=== PATIENT | male | born 1985 | race African-American/Black ===

== ENCOUNTER 2016-07-08 10:28 | Inpatient (IN) | payer OTHER ==
[~2016-07-08] VITALS: Ht 182.9 cm; Wt 96.6 kg
--- NOTE | ~2016-07-08 | HC ---
[facility] [place] [address] CONSULTATION Name: MON[address] L[address] Room #: 448-P ADM IN M.R.#: [id number] Admission: 07/08/16 Attend Phys: Martinez Isaac MD Discharge: Date of : 83 Report #: [id number] THIS REPORT FOR: //name// CC: [facility] DATE OF ADMISSION: 07/08/2016 DATE OF CONSULTATION: 07/08/2016 REASON FOR CONSULTATION: Elevated creatinine. HISTORY OF PRESENT ILLNESS: This is a 31-year-old male who already has suffered the ravages of 14 years of type 2 diabetes mellitus. With that he has episodes of gastroparesis, nausea and vomiting and he awakened this morning with one of these episodes of nausea and vomiting. It persisted for some time. He had increasing rounds of abdominal pain, so he eventually came to the Emergency Room. After evaluation in the Emergency Room, he was admitted to the hospital. He is still having abdominal discomfort at this time. He still has nausea. He has not vomited since he arrived. He has been given some Zofran. He has also been given some metoclopramide. With his abdominal pain, he had fairly normal liver function tests. He had a lipase of 385. He had a CT scan done that showed some edema of the pancreas. No evidence of stones. We were asked to see the patient for his elevated creatinine level. Again, he states he has had diabetes since age 17, creatinine level on presentation was 2.8 with a BUN of 21. Looking back at labs from 2015, he had a creatinine level of 1.5 and 1.6 at that time. 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 He has been followed for his diabetes at [facility] and has been told he has some proteinuria. He says he has been developing substantial amounts of edema mostly in his lower extremities. He has been taking some furosemide for that. He previously was on some lisinopril, but says that was stopped and does not know the reason why. His blood pressure tends to run high most all of the time. In looking at additional lab work, he has a total protein of 5.7 and an albumin of 2.0. Urinalysis showed 3+ protein, 2+ glucose, 3+ blood. Urine protein creatinine was ordered, but is pending. The patient had a CT scan of the abdomen, shows fairly normal appearing kidneys, that report shows evidence that there was some interstitial fluid present. The patient also has severe blood pressure elevation. Upon original presentation his blood pressure was 219/120, he was given some blood pressure meds, most recently was down to 192/96. PAST MEDICAL HISTORY: Type 2 diabetes mellitus diagnosed at age . He has retinopathy with previous laser photocoagulation. He has the gastroparesis. He has mild peripheral neuropathy. He has the edema as noted above. He has longstanding hypertension. He denies any history of previous surgeries, he has [address] [address] CONSULTATION Name: MONET LANE Sarthak Room #: 448-P [facility] IN M.R.#: [id number] Admission: 07/08/16 Attend Phys: Martinez Isaac MD Discharge: Date of : 83 Report #: [id number] also had cataracts treated, other records available shows that he has been in the Emergency Room a couple of times in 2015 with very similar symptoms, nausea, vomiting and abdominal pain. MEDICATIONS: On admission include carvedilol 12.5 mg b.i.d., Lantus 17 units at bedtime, Apidra with meals. He has been taking furosemide 80 mg in the morning and 40 in the evening, p.r.n. Aleve. ALLERGIES: No known allergies. FAMILY HISTORY: Negative for renal disease of which he is aware. SOCIAL HISTORY: The patient is , lives in [place], [place]. He is currently unemployed. REVIEW OF SYSTEMS: Positive for the nausea and vomiting as noted above. He states yesterday he felt his entirely normal self. He does not recall eating anything unusual, was not having nausea or vomiting at that time. No recent problem with his bowels. No difficulty voiding urine. He says he has had edema as noted previously, this includes lower extremities, occasionally in the hands and face, somewhat it is so severe in his legs and thighs and involves his scrotum and his lower abdomen. He reports no difficulty voiding urine. Urine has been somewhat dark, no dysuria, mild dyspnea with exertion. No chest pain or palpitations, unaware of fevers, chills or sweats. No skin rashes, myalgias, arthralgias recently. PHYSICAL EXAMINATION: GENERAL: A 31-year-old male, acutely ill appearing. VITAL SIGNS: Most recent blood pressure 192/96, heart rate is 89, temperature 98.4, oxygen saturation 98%. HEENT: Shows pupils are equal and reactive. Sclerae nonicteric. Oral mucosa is somewhat dry without lesions. NECK: Supple without adenopathy, thyromegaly, JVD or bruit. CHEST: Show shallow respirations, generally clear. CARDIOVASCULAR: Heart has a regular rate and rhythm, not tachycardic. No gallop is noted. ABDOMEN: Fairly quiet, it is not distended. There is mild diffuse tenderness, but no point tenderness in particular and no epigastric tenderness. BACK: Shows no CVA tenderness. EXTREMITIES: Showed 1+ bilateral angle and pedal edema. No edema above that at this time. There is mild hand edema. Elective CT scan confirmed a fairly normal appearing kidneys. LABORATORY DATA: Sodium 134, potassium 3.8, chloride 103, bicarbonate 26, BUN 21, creatinine 2.8, glucose 254, AST 35, ALT 25, total bilirubin 0.4, calcium [address] [address] CONSULTATION Name: [address] Room #: 448-P [facility] IN ..#: [id number] Admission: 07/08/16 Attend Phys: Martinez Isaac MD Discharge: Date of : 83 Report #: [id number] 7.9, lipase 385, total protein 5.7, albumin 2.0, hemoglobin 11.5, hematocrit 32.1, white count 6.8, platelets 248,000. Urinalysis is as noted above. ASSESSMENT: 1. Nausea, vomiting and abdominal pain, most consistent with diabetic gastroparesis on exam and on labs. He does not have acute pancreatitis. I know that the CT scan suggested enlarged diffuse pancreas. He is nephrotic enough most likely that he has some ascites and other swelling related to that and that may be somewhat of a CT appearance. Certainly those labs will be repeated overnight to see if he has further evidence of that, but he has had recurring episodes of gastroparesis before and I think that is what it is. He has been treated with prokinetic agents and ondansetron and should improve. 2. Elevated creatinine consistent with chronic kidney disease, likely stage 3, possibly stage IV. He has proteinuria and a very active urine on dipstick. We need to quantify proteinuria. 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 This would be expected with uncontrolled diabetic nephropathy. Unfortunately, he had been taking off his KEVON inhibitor that he had been on previously. He does not know why, nor does he remember when, he would be best served still being on that for renal protection. Kidneys were of normal size on CT exam. No evidence of hydronephrosis. He will need very aggressive care to try to get his diabetic nephropathy, controlled. 3. Hypertension, very poorly controlled. I will double his carvedilol, I will double his amlodipine once we get things stabilized a bit and see what his creatinine is doing. I want to get him on an KEVON inhibitor. We certainly do not want to exacerbate any acute kidney injury, if that is occurring with high dose KEVON inhibitor at this time, we will wait and see what he does over the next few days before getting that started. I have also discussed with the patient that he needs long-term nephrologic care, whether he get that at [facility] or elsewhere, he needs a lot of help because of his progressive chronic kidney disease. He seemed to express understanding. PLAN: 1. Double carvedilol to 25 b.i.d. 2. Double amlodipine 10 mg b.i.d. 3. Continue the IV fluids at 100 mL an hour. 4. Quantify proteinuria. 5. Fractional excretion of sodium. 6. Repeat labs in the morning. 7. Eventually answer to some lisinopril or other KEVON inhibitor to help for renal protection. 8. We will have to work with the patient about additional education concerning his very tenuous status from a kidney standpoint. <ELECTRONICALLY SIGNED> By: Randy Maldonado MD 07/09/16 0735 [id number] Kanu Torrez MD /nt
--- NOTE | ~2016-07-08 | H ---
[facility] [place] [address] HISTORY AND PHYSICAL Name: MONET LANE Room #: 448-P ADM IN M.R.#: [id number] Admission: 07/08/16 Attend Phys: Martinez Isaac MD Discharge: Date of : 83 Report #: [id number] THIS REPORT FOR: //name// CC: Martinez Londonian [facility] DATE OF SERVICE: 07/08/2016 REASON FOR ADMISSION: Abdominal pain and nausea. HISTORY OF PRESENT ILLNESS: The patient is a 31-year-old gentleman who reportedly was in his usual state of health yesterday, subsequently presented to the hospital today with significant severe abdominal pain located all over his lower abdomen, associated with significant nausea and vomiting. He also reports a few loose stools. He denies fevers, chills, headaches, skin rashes, or other problems. In the emergency room, he was noted to be significantly hypertensive as well as appeared to be in renal failure with possible pancreatitis and is being admitted for further workup and management of these problems. He denies any new medications. He reports compliance with his regular medications. He denies alcohol or drug use or any other substance use at this present time. PAST MEDICAL HISTORY: Includes: 1. Diabetes, on insulin. 2. Hypertension. PAST SURGICAL HISTORY: None reported. FAMILY HISTORY: Reports no significant family history. ALLERGIES: Reported to SHRIMP. MEDICATIONS AT HOME: Include: 1. Coreg. 2. Apidra with meals and 17 of Lantus at bedtime. REVIEW OF SYSTEMS: Twelve-point review of systems performed, negative except as mentioned in history of present illness. PHYSICAL EXAMINATION: VITAL SIGNS: Afebrile, pulse 90, respiratory rate 16, O2 sat 100 on room air, and blood pressure 207/107. GENERAL: Awake, alert, somewhat uncomfortable, in no acute distress. HEENT: Unremarkable. NECK: No JVD or thyromegaly. CARDIOVASCULAR: S1, S2 present, regular. RESPIRATORY: Air entry present bilaterally. [facility] [address] [place] [place] [address] HISTORY AND PHYSICAL Name: MONET LANE Room #: 448-P [facility] IN M.R.#: [id number] Admission: 07/08/16 Attend Phys: Martinez Isaac MD Discharge: Date of : 83 Report #: [id number] ABDOMEN: Soft, mildly tender to palpation all over without obvious guarding, rebound, or rigidity. EXTREMITIES: Without edema. NEUROLOGIC: Awake, alert. No obvious focal findings. SKIN: Unremarkable for rash or lesions. LABS AND INVESTIGATIONS: CBC is unremarkable. Chemistry notable for mild hyponatremia 134, BUN and creatinine elevated at 21 and 2.8, glucose elevated at 234. Liver function within normal range. Alk phos minimally elevated. Lipase level within normal range. Urinalysis with 3+ protein, 3+ blood, and rbc's noted. Imaging with an abdominal and pelvis CT noncontrast demonstrates pancreatic edema as well as proximal transverse colon thickening as well as moderate thickening of the anterior superior bladder wall. ASSESSMENT AND PLAN: This is a 31-year-old gentleman admitted with abdominal pain, nausea, vomiting and reported diarrhea. 1. Abdominal pain, nausea, and vomiting. CT does appear to show some evidence of pancreatitis, though his lipase is unremarkable. We will check a lipid profile. This may be related to his history of diabetes and related to the insulin he is on versus in the setting of acute gastroenteritis. We will start empiric antibiotic coverage for the same and assess for improvement. He will be kept n.p.o. for the present. 2. Acute renal failure. The patient likely has underlying chronic kidney disease in light of poorly treated diabetes and hypertension. At the present time, we will obtain a renal ultrasound as well as obtain nephrology input as this may represent advanced chronic kidney disease, which requires followup. We will also try to quantify his proteinuria. 3. Diabetes. Continue long-acting Lantus and start sliding scale coverage. 4. Hypertension/hypertensive urgency, very poorly controlled at this present time. We will add a calcium channel luis felipe and attempt to control his pain and symptoms, which may be contributory as well as use p.r.n. hydralazine as needed. 5. Deep venous thrombosis prophylaxis with SCDs. <ELECTRONICALLY SIGNED> By: Martinez Isaac MD 07/09/16 1505 1405 1647 Martinez Isaac MD /nt
[~2016-07-08 10:28] MED LIST: APIDRA SUBQ; LANTUSSOLASTAR SUBQ; LISINOPRIL-HCT1 EAC1 PO; NEURONTIN 300M300 M2 PO; NEXIUM 40 MG CA40 M1 PO; NORCO 5-325 TA1 EACH PO; ZOFRAN ODT4 MG PO; ZOFRAN4 MG PO; [UNRECOGNIZED DRUG - OTHER]
[2016-07-08 10:35] VITALS: BP 219/120
[2016-07-08] MEDS ORDERED: CARVEDILOL12.5 MG PO (10:48)
[2016-07-08 11:18] LABS: ABSOLUTE NEUTROPHILS 4.8 thou/uL (1.4-8.2); BASOPHILS 0.8 % (0.0-2.0); EOSINOPHILS 1.6 % (0.0-3.0); HEMATOCRIT 32.1 % (42.0-52.0); HEMOGLOBIN 11.5 gm/dL (14.0-18.0); LYMPHOCYTES 20.3 % (24.0-44.0); MCH 29.4 pg (26.0-34.0); MCHC 35.8 g/dL (28.0-37.0); MCV 82.2 fL (80.0-100.0); MONOCYTES 6.2 % (1.0-8.0); PLATELET COUNT 248 thou/uL (150-400); POLYS 71.1 % (36.0-66.0); RDW 14.7 % (10.5-14.5); WBC 6.8 thou/uL (4.0-11.0)
[2016-07-08 11:20] LABS: URINE BILIRUBIN NEGATIVE (Negative); URINE BLOOD 3+ (Negative); URINE COLOR YELLOW; URINE GLUCOSE-RANDOM* 2+ (Negative); URINE KETONES NEGATIVE (Negative); URINE LEUKOCYTES-REFLEX NEGATIVE (Negative); URINE PROTEIN (DIPSTICK) 3+ (Negative); URINE UROBILINOGEN 0.2 E.U./dl (0.2-1.0)
[2016-07-08 11:20] LABS: MANUAL DIFF NO
[2016-07-08 11:26] LABS: CALCIUM 7.9 mg/dL (8.5-10.1); CREATININE 2.8 mg/dL (0.7-1.3); POTASSIUM 3.8 mmol/L (3.5-5.1)
[2016-07-08 11:31] LABS: TOTAL BILIRUBIN 0.4 mg/dL (<0.1-1.0); TOTAL PROTEIN 5.7 g/dL (6.4-8.2)
[2016-07-08 11:39] LABS: CASTS None Seen /LPF (None Seen); CRYSTALS None Seen /LPF (None Seen); SQUAMOUS None Seen /LPF (0-3)
[2016-07-08 11:40] LABS: URINE RBC >20 Many /HPF (0-2); URINE WBC-REFLEX 0-5 Rare /HPF (0-5)
[2016-07-08 14:18] LABS: CHOLESTEROL 246 mg/dL (<200); HDL CHOLESTEROL 79 mg/dL (>40); LDL CHOLESTEROL 151 mg/dL (<100); TC:HDL 3.1 Ratio (Not establshd); TRIGLYCERIDE 80 mg/dL (<150); VLDL 16 mg/dL (<40)
[2016-07-08 14:50] VITALS: BP 214/144
[2016-07-08 15:48] VITALS: BP 192/96
[2016-07-08 18:35] VITALS: BP 188/88
[2016-07-08 19:40] VITALS: BP 187/110
[2016-07-08 22:59] VITALS: BP 156/100
[2016-07-09] VITALS (7 sets, daily range): BP systolic 160–174; BP diastolic 83–109
[2016-07-09 05:26] LABS: HEMATOCRIT 29.5 % (42.0-52.0); HEMOGLOBIN 10.8 gm/dL (14.0-18.0); MCH 29.5 pg (26.0-34.0); MCHC 36.6 g/dL (28.0-37.0); MCV 80.6 fL (80.0-100.0); RBC 3.66 mil/uL (4.50-6.00); RDW 14.2 % (10.5-14.5); WBC 6.1 thou/uL (4.0-11.0)
[2016-07-09 05:41] LABS: CALCIUM 7.8 mg/dL (8.5-10.1); CREATININE 2.7 mg/dL (0.7-1.3)
[2016-07-09 05:59] LABS: POTASSIUM 2.9 mmol/L (3.5-5.1)
[2016-07-09 06:08] LABS: GLYCOHEMOGLOBIN (HGB A1C) 7.4 % (4.8-5.6)
[2016-07-09 07:10] LABS: URINE CREATININE-RANDOM* 42.1 mg/dL (Not Estab.)
[2016-07-09 08:15] LABS: URINE PROTEIN-RANDOM* 581.3 mg/dL (Not Estab.)
== END 2016-07-09 20:00 | disposition left against medical advice (07) | DRG 73 ==
LOC: ER 10:28 → 4S 13:08 → EROBS 13:08 → 4S 14:11
PROVIDERS: Hospitalist; Physician Assistant
DX: E11.43 Type 2 diabetes mellitus with diabetic autonomic (poly)neuropathy (principal); K85.90 Acute pancreatitis without necrosis or infection, unspecified; N17.9 Acute kidney failure, unspecified; K31.84 Gastroparesis; E11.21 Type 2 diabetes mellitus with diabetic nephropathy; I16.0 Hypertensive urgency; R80.9 Proteinuria, unspecified; I12.9 Hypertensive chronic kidney disease with stage 1 through stage 4 chronic kidney disease, or unspecified chronic kidney disease; E11.22 Type 2 diabetes mellitus with diabetic chronic kidney disease; N18.9 Chronic kidney disease, unspecified; Z53.21 Procedure and treatment not carried out due to patient leaving prior to being seen by health care provider; Z79.4 Long term (current) use of insulin; Z91.013 Allergy to seafood; Z79.899 Other long term (current) drug therapy; Z98.42 Cataract extraction status, left eye; Z98.41 Cataract extraction status, right eye
CPT/HCPCS: 10100

== ENCOUNTER 2016-07-13 17:42 | Inpatient (IN) | payer OTHER ==
[~2016-07-13] VITALS: Ht 188 cm; Wt 90.7 kg
--- NOTE | ~2016-07-13 | EKG ---
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 : 1985 Requested By: Cheyenne Finnegan Order Number: [id number] MD: Facundo Polanco Measurements Intervals [place] Rate: 92 P: 64 [place]: 159 QRS: 32 QRSD: 76 T: 67 QT: 352 QTc: 436 Interpretive Statements Sinus rhythm Baseline wander in lead(s) V3 Compared to ECG 01/14/2015 23:57:24 No significant change was found Electronically Signed On 07-14-2016 14:02:52 CDT by Facundo Polanco [email or web address] <ELECTRONICALLY SIGNED> By: Facundo Polanco MD, [facility] 07/14/16 1402 190 190 Facundo Polanco MD, [facility] /EPI
--- NOTE | ~2016-07-13 | HC ---
[facility] [place] [address] CONSULTATION Name: [address] Room #: 204-P [facility] IN ..#: [id number] Admission: 07/13/16 Attend Phys: Eugenio Lam MD Discharge: 07/14/16 Date of : 83 Report #: [id number] THIS REPORT FOR: //name// CC: FAM unknown Eugenio Lam DATE OF SERVICE: 07/14/2016 REASON FOR CONSULTATION: Renal insufficiency and nephrotic syndrome in this patient with nausea, vomiting, abdominal pain, longstanding diabetes mellitus. HISTORY OF PRESENT ILLNESS: The patient was recently hospitalized at [facility] from 07/08/2016 through 07/09/2016. He represents at this time with recurrent abdominal discomfort. He reports nausea and vomiting. Evaluation in the Emergency Room revealed evidence of suspected gastroparesis/pancreatitis and he was admitted for further evaluation and treatment. His renal status is not significantly changed from his recent values. His creatinine is in the upper 2 to 3.0 range with having nephrotic range proteinuria. He denies current urinary symptomatology including dysuria, frequency, burning, or incontinence. PAST MEDICAL HISTORY: Remarkable as described above for longstanding diabetes mellitus and hypertension. Evaluation during his last hospitalization did not reveal evidence of a glomerulonephritis and it was suspected that his renal difficulties are all hypertension and diabetes related. PAST MEDICAL HISTORY: Otherwise remarkable for diabetic retinopathy post photocoagulation, gastroparesis, peripheral neuropathy and hypertension. MEDICATIONS: On admission include carvedilol 12.5 mg b.i.d., Lantus and Apidra. FAMILY HISTORY: Remarkable for diabetes mellitus, but negative for renal disease. PERSONAL AND SOCIAL HISTORY: The patient reportedly does not smoke, use alcohol or have any history of substance abuse. REVIEW OF SYSTEMS: Remarkable for intermittent pedal edema. He denies headache, loss of consciousness, vertigo, shortness of breath, productive cough, hemoptysis, chest pain, palpitations. He has had nausea, vomiting and abdominal pain. He reports regular bowel movements. PHYSICAL EXAMINATION: GENERAL: Reveals a well-developed, well-nourished male appearing his stated age, in no acute distress. VITAL SIGNS: Blood pressure 146/81, temperature 98.5, pulse 93, respirations [address] [address] CONSULTATION Name: MON[address] L[address] Room #: [address] [place] [address]#: [id number] Admission: 07/13/16 Attend Phys: Eugenio Lam MD Discharge: 07/14/16 Date of : 83 Report #: [id number]. SKIN: Warm and dry. There is good distal perfusion. There is no clubbing, cyanosis or adenopathy present. HEENT: The head is normocephalic and atraumatic. The sclerae are white. The pharynx is benign. NECK: Supple. LUNGS: Way are grossly clear to percussion and auscultation. CARDIOVASCULAR: Reveals a regular rate and rhythm without rub. ABDOMEN: Soft and nontender without evidence of guarding or rebound noted. EXTREMITIES: There is no palpable mass or organomegaly. NEUROLOGIC: Reveals the patient to be alert and cooperative with a nonfocal exam. LABORATORY STUDIES: Available at this time include sodium 140, potassium 3.6, chloride 104, CO2 of 21, BUN 20, creatinine 2.9, glucose 268, calcium 8.0, ALT 23, alk phos 122, albumin 2.1, troponins less than 0.04. DICTATION ENDS HERE. <ELECTRONICALLY SIGNED> By: Randy Maldonado MD 07/15/16 0750 1826 0045 Randy Maldonado MD /nt
--- NOTE | ~2016-07-13 | EKG ---
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 07/14/16 1408 6 6 Facundo Polanco MD, [facility] /EPI
--- NOTE | ~2016-07-13 | HC ---
[facility] [place] [address] CONSULTATION Name: [address] Sarthak Room #: 204[facility]#: [id number] Admission: 07/13/16 Attend Phys: Eugenio Lam MD Discharge: 07/14/16 Date of : 83 Report #: [id number] THIS REPORT FOR: //name// CC: FAM unknown Eugenio Lam DATE OF SERVICE: 07/14/2016 REASON FOR CONSULTATION: Abdominal pain. CONSULTING PHYSICIAN: JOHN Guerra. HISTORY OF PRESENT ILLNESS: This is a 31-year-old Afro-[place] Citizen male with past medical history of diabetes, hypertension, hyperlipidemia and chronic kidney disease; who was admitted to the hospital overnight via the emergency room with complaint of nausea, vomiting, abdominal pain and chest pain. He started vomiting around 8:00 a.m. with continuous episodes. He has not had any overnight. He reports diffuse abdominal pain, mainly located in the periumbilical region with radiation to the back. There are no relieving factors except for high doses of narcotics. He states food exacerbates the pain. Of note, his CT scan shows acute pancreatitis. The patient usually follows his care at [facility]. He has insulin-dependent diabetes mellitus. Of note, he was extremely hypertensive with a blood pressure of 225/149 on admission. REVIEW OF SYSTEMS: As noted on HPI, otherwise generally appearing negative. PAST MEDICAL AND SURGICAL HISTORY: 1. Chronic kidney disease. 2. Hypertension. 3. Uncontrolled diabetes mellitus. 4. Acute pancreatitis. 5. Noncompliance. ALLERGIES: No known drug allergies. MEDICATIONS: Reviewed and noted. SOCIAL HISTORY: Denies tobacco use. He reports alcohol intake. He is not an accurate historian as he does not tell me the accurate alcoholic intake, but I assume it is significant. He does smoke marijuana on a regular basis. Of note, his urine drug screen was positive for marijuana. FAMILY HISTORY: There is no family member with colorectal cancer or other GI illnesses. [facility] [address] [place] [address] CONSULTATION Name: MON[address] L[address] Room #: 204-P [facility] IN [facility].#: [id number] Admission: 07/13/16 Attend Phys: Eugenio Lam MD Discharge: 07/14/16 Date of : 83 Report #: [id number] PHYSICAL EXAMINATION: GENERAL: Alert and oriented to time, place and person, cooperative, appears in moderate distress with pain. VITAL SIGNS: Hemodynamically stable, afebrile. HEAD: Normocephalic and atraumatic head. EYES: Pupils equal, round and reactive to light and accommodation. Extraocular movements intact. No pallor. No icterus. NECK: Supple. Midline trachea. Thyroid palpable. CARDIOVASCULAR: Regular rate and rhythm. No murmur. RESPIRATORY: Chest clear to auscultation bilaterally. ABDOMEN: Soft, nontender and nondistended. Bowel sounds present. EXTREMITIES: No cyanosis, clubbing or edema. SKIN: Warm and dry. No rashes. NEUROLOGICAL: Cranial nerves were grossly intact. No focal weakness. LABORATORY DATA: White count 5.3, hemoglobin 12.3 and platelets of 249. RADIOLOGICAL DATA: Chest x-ray is negative for any acute cardiopulmonary process. CT scan of the abdomen and pelvis shows acute pancreatitis. DIAGNOSTIC IMPRESSION AND PLAN: Acute pancreatitis. Unclear etiology. Alcohol could be playing a role in pancreatitis, but I would like to obtain an ultrasound of the abdomen to exclude cholelithiasis as a cause of his pancreatitis. A fasting lipid profile should also be obtained. Pain control per primary team. Continue n.p.o. status and I recommend aggressive IV hydration with lactated Ringer at 150 mL per hour to know the downward trend of BUN and hematocrit levels. Cautious advancement of diet is recommended. Thank you for allowing me to participate in the care of this patient. Dr. Burgess will see tomorrow. By: 0932 2325 Steven Lancaster MD /nt
[~2016-07-13 17:42] MED LIST changes: +CARVEDILOL12.5 MG PO
[2016-07-13 17:47] VITALS: BP 225/148
[2016-07-13 18:32] LABS: ABSOLUTE NEUTROPHILS 3.8 thou/uL (1.4-8.2); BASOPHILS 1.1 % (0.0-2.0); EOSINOPHILS 1.7 % (0.0-3.0); HEMOGLOBIN 12.3 gm/dL (14.0-18.0); LYMPHOCYTES 19.7 % (24.0-44.0); MANUAL DIFF NO; MCH 29.2 pg (26.0-34.0); MCHC 36.2 g/dL (28.0-37.0); MCV 80.8 fL (80.0-100.0); MONOCYTES 5.7 % (1.0-8.0); PLATELET COUNT 249 thou/uL (150-400); POLYS 71.8 % (36.0-66.0); RDW 13.7 % (10.5-14.5); WBC 5.3 thou/uL (4.0-11.0)
[2016-07-13 18:42] LABS: ANION GAP 5 mmol/L (7-16); BUN 19 mg/dL (7-18); CHLORIDE 102 mmol/L (98-107); CO2 30 mmol/L (21-32); GLUCOSE 390 mg/dL (74-106); POTASSIUM 3.6 mmol/L (3.5-5.1); SODIUM 137 mmol/L (136-145)
[2016-07-13 18:47] LABS: URINE BILIRUBIN NEGATIVE (Negative); URINE BLOOD 3+ (Negative); URINE COLOR YELLOW; URINE GLUCOSE-RANDOM* 3+ (Negative); URINE KETONES NEGATIVE (Negative); URINE NITRITE NEGATIVE (Negative); URINE PROTEIN (DIPSTICK) 3+ (Negative); URINE UROBILINOGEN 0.2 E.U./dl (0.2-1.0)
[2016-07-13 18:49] LABS: ALBUMIN 2.2 g/dL (3.4-5.0); ALKALINE PHOSPHATASE 148 U/L (46-116); SGOT 34 U/L (15-37); SGPT 26 U/L (30-65); TOTAL BILIRUBIN 0.4 mg/dL (<0.1-1.0); TOTAL PROTEIN 6.1 g/dL (6.4-8.2); TROPONIN-I < 0.04 ng/mL (<0.04-0.07)
[2016-07-13 18:51] LABS: AMP/METHAMP Negative (Negative); BARBITURATES Negative (Negative); BENZODIAZEPINES Negative (Negative); COCAINE Negative (Negative); METHADONE Negative (Negative); OPIATES Negative (Negative); PCP Negative (Negative); THC POSITIVE (Negative)
[2016-07-13 19:03] LABS: SQUAMOUS None Seen /LPF (0-3)
[2016-07-13 19:04] LABS: BACTERIA 1-9 Few /HPF (None Seen); CASTS None Seen /LPF (None Seen); CRYSTALS None Seen /LPF (None Seen); URINE WBC 0-5 Rare /HPF (0-5)
[2016-07-13 23:00] VITALS: BP 223/133
[2016-07-13 23:30] VITALS: BP 152/95
[2016-07-13 23:45] VITALS: BP 154/95
[2016-07-14] VITALS (14 sets, daily range): BP systolic 133–181; BP diastolic 77–117
[2016-07-14] MEDS ORDERED: REGLAN 10 MG TA10 MG PO (00:02)
[2016-07-14 01:41] LABS: TROPONIN-I < 0.04 ng/mL (<0.04-0.07)
[2016-07-14 02:13] LABS: NT-PRO BRAIN NAT PEPTIDE 1213 pg/mL (<300)
[2016-07-14 07:16] LABS: ALBUMIN 2.1 g/dL (3.4-5.0); ALKALINE PHOSPHATASE 122 U/L (46-116); ANION GAP 15 mmol/L (7-16); BUN 20 mg/dL (7-18); CHLORIDE 104 mmol/L (98-107); CHOLESTEROL 269 mg/dL (<200); CO2 21 mmol/L (21-32); CREATININE 2.9 mg/dL (0.7-1.3); GLUCOSE 268 mg/dL (74-106); HDL CHOLESTEROL 67 mg/dL (>40); LDL CHOLESTEROL 185 mg/dL (<100); PHOSPHORUS 4.1 mg/dL (2.5-4.9); POTASSIUM 3.6 mmol/L (3.5-5.1); SGOT 43 U/L (15-37); SGPT 23 U/L (30-65); SODIUM 140 mmol/L (136-145); TOTAL BILIRUBIN 0.6 mg/dL (<0.1-1.0); TOTAL PROTEIN 5.9 g/dL (6.4-8.2); TRIGLYCERIDE 89 mg/dL (<150); VLDL 18 mg/dL (<40)
[2016-07-14 11:57] LABS: HEMATOCRIT 31.2 % (42.0-52.0); HEMOGLOBIN 11.4 gm/dL (14.0-18.0); MCH 29.6 pg (26.0-34.0); MCHC 36.5 g/dL (28.0-37.0); RBC 3.85 mil/uL (4.50-6.00); RDW 14.2 % (10.5-14.5); WBC 7.2 thou/uL (4.0-11.0)
[2016-07-15 16:06] LABS: GLYCOHEMOGLOBIN (HGB A1C) 7.4 % (4.8-5.6)
== END 2016-07-14 13:43 | disposition left against medical advice (07) | DRG 682 ==
LOC: ER 17:42 → EROBS 22:25 → ER 22:25 → 2N 23:03
PROVIDERS: Emergency Medicine; Nurse Practitioner Family
DX: N17.9 Acute kidney failure, unspecified (principal); K85.90 Acute pancreatitis without necrosis or infection, unspecified; E87.3 Alkalosis; I16.0 Hypertensive urgency; E78.5 Hyperlipidemia, unspecified; I12.9 Hypertensive chronic kidney disease with stage 1 through stage 4 chronic kidney disease, or unspecified chronic kidney disease; F12.90 Cannabis use, unspecified, uncomplicated; N18.9 Chronic kidney disease, unspecified; R80.9 Proteinuria, unspecified; E10.65 Type 1 diabetes mellitus with hyperglycemia; E10.22 Type 1 diabetes mellitus with diabetic chronic kidney disease; E10.319 Type 1 diabetes mellitus with unspecified diabetic retinopathy without macular edema; E10.42 Type 1 diabetes mellitus with diabetic polyneuropathy; Z53.21 Procedure and treatment not carried out due to patient leaving prior to being seen by health care provider; Z79.4 Long term (current) use of insulin; Z91.013 Allergy to seafood; Z79.899 Other long term (current) drug therapy; Z83.3 Family history of diabetes mellitus; Z82.49 Family history of ischemic heart disease and other diseases of the circulatory system; Z91.14 Patient's other noncompliance with medication regimen
CPT/HCPCS: 10081

== ENCOUNTER 2016-07-20 14:11 | Emergency (ER) | payer OTHER ==
[~2016-07-20] VITALS: Ht 182.9 cm; Wt 95.3 kg
--- NOTE | ~2016-07-20 | EKG ---
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
[~2016-07-20 14:11] MED LIST changes: +REGLAN 10 MG TA10 MG PO
[2016-07-20] MEDS ORDERED: PROMS25 WY RECTAL (14:18)
[2016-07-20 16:11] LABS: ABSOLUTE NEUTROPHILS 3.5 thou/uL (1.4-8.2); BASOPHILS 0.9 % (0.0-2.0); EOSINOPHILS 1.3 % (0.0-3.0); HEMATOCRIT 28.9 % (42.0-52.0); HEMOGLOBIN 10.6 gm/dL (14.0-18.0); LYMPHOCYTES 26.2 % (24.0-44.0); MCH 29.6 pg (26.0-34.0); MCHC 36.5 g/dL (28.0-37.0); MONOCYTES 5.9 % (1.0-8.0); PLATELET COUNT 254 thou/uL (150-400); POLYS 65.7 % (36.0-66.0); RBC 3.57 mil/uL (4.50-6.00); RDW 14.2 % (10.5-14.5); WBC 5.3 thou/uL (4.0-11.0)
[2016-07-20 16:13] LABS: MANUAL DIFF NO
[2016-07-20 16:20] LABS: CALCIUM 7.8 mg/dL (8.5-10.1); CREATININE 3.1 mg/dL (0.7-1.3); POTASSIUM 3.2 mmol/L (3.5-5.1)
[2016-07-20 16:24] LABS: ALBUMIN 1.7 g/dL (3.4-5.0); TOTAL BILIRUBIN 0.4 mg/dL (<0.1-1.0); TOTAL PROTEIN 5.2 g/dL (6.4-8.2)
[2016-07-20] MEDS ORDERED: HYDROCODONE-AP1 EAC6 PO (16:49)
[2016-07-20 17:04] LABS: URINE BILIRUBIN NEGATIVE (Negative); URINE BLOOD 3+ (Negative); URINE COLOR YELLOW; URINE GLUCOSE-RANDOM* 2+ (Negative); URINE KETONES NEGATIVE (Negative); URINE NITRITE NEGATIVE (Negative); URINE PROTEIN (DIPSTICK) 3+ (Negative); URINE SPECIFIC GRAVITY 1.015 (1.003-1.035); URINE UROBILINOGEN 0.2 E.U./dl (0.2-1.0)
[2016-07-20 17:21] LABS: CASTS None Seen /LPF (None Seen); CRYSTALS None Seen /LPF (None Seen); SQUAMOUS None Seen /LPF (0-3)
[2016-07-20 17:22] LABS: URINE RBC 3-10 Few /HPF (0-2); URINE WBC 0-5 Rare /HPF (0-5)
[2016-07-20 17:23] LABS: BACTERIA 1-9 Few /HPF (None Seen)
== END 2016-07-20 18:26 | disposition home or self-care (01) ==
LOC: ER 14:11
PROVIDERS: Nurse Practitioner Family
DX: E10.43 Type 1 diabetes mellitus with diabetic autonomic (poly)neuropathy (principal); K31.84 Gastroparesis; E87.6 Hypokalemia; E78.5 Hyperlipidemia, unspecified; I12.9 Hypertensive chronic kidney disease with stage 1 through stage 4 chronic kidney disease, or unspecified chronic kidney disease; E10.22 Type 1 diabetes mellitus with diabetic chronic kidney disease; N18.9 Chronic kidney disease, unspecified; F12.10 Cannabis abuse, uncomplicated; Z79.4 Long term (current) use of insulin; Z91.013 Allergy to seafood

== ENCOUNTER 2016-07-22 15:58 | Inpatient (IN) | payer OTHER ==
[~2016-07-22] VITALS: Ht 182.9 cm; Wt 100.2 kg
--- NOTE | ~2016-07-22 | EKG ---
[address] [address] ELECTROCARDIOGRAM REPORT Name: RADHA LANENOHEMY De León Room #: 203-P ADM IN M.R.#: [id number] Admission: 07/22/16 Attend Phys: Michael Greene MD Discharge: Date of : 83 Report #: [id number] THIS REPORT FOR: //name// 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 : 1985 Requested By: Farhan Angulo Order Number: [id number] MD: Facundo Polanco Measurements Intervals [place] Rate: 100 P: 53 CT: 148 QRS: 16 QRSD: 94 T: 62 QT: 354 QTc: 457 Interpretive Statements Sinus tachycardia Poor septal R-wave progression Baseline wander in lead(s) V1 Compared to ECG 07/20/2016 14:39:59 No significant change was found Electronically Signed On 07-23-2016 8:49:29 CDT by Facundo Polanco [email or web address] <ELECTRONICALLY SIGNED> By: Facundo Polanco MD, [facility] 07/23/16 0849 1646 1646 Facundo Polanco MD, [facility] /EPI
[~2016-07-22 15:58] MED LIST changes: +HYDROCODONE-AP1 EAC6 PO; +PROMS25 WY RECTAL
[2016-07-22 15:59] VITALS: BP 260/142
[2016-07-22 16:54] LABS: ABSOLUTE NEUTROPHILS 4.1 thou/uL (1.4-8.2); BASOPHILS 1.2 % (0.0-2.0); EOSINOPHILS 1.5 % (0.0-3.0); HEMATOCRIT 34.5 % (42.0-52.0); HEMOGLOBIN 12.6 gm/dL (14.0-18.0); LYMPHOCYTES 21.5 % (24.0-44.0); MANUAL DIFF NO; MCH 29.1 pg (26.0-34.0); MCHC 36.4 g/dL (28.0-37.0); MONOCYTES 4.5 % (1.0-8.0); PLATELET COUNT 270 thou/uL (150-400); POLYS 71.3 % (36.0-66.0); RBC 4.32 mil/uL (4.50-6.00); RDW 14.4 % (10.5-14.5); WBC 5.7 thou/uL (4.0-11.0)
[2016-07-22 17:07] LABS: ANION GAP 6 mmol/L (7-16); BUN 23 mg/dL (7-18); CALCIUM 8.2 mg/dL (8.5-10.1); CHLORIDE 104 mmol/L (98-107); CO2 28 mmol/L (21-32); CREATININE 3.1 mg/dL (0.7-1.3); GLUCOSE 443 mg/dL (74-106); POTASSIUM 3.7 mmol/L (3.5-5.1); SODIUM 138 mmol/L (136-145)
[2016-07-22 17:09] LABS: URINE BILIRUBIN NEGATIVE (Negative); URINE BLOOD 3+ (Negative); URINE COLOR YELLOW; URINE GLUCOSE-RANDOM* 3+ (Negative); URINE KETONES NEGATIVE (Negative); URINE NITRITE NEGATIVE (Negative); URINE PROTEIN (DIPSTICK) 3+ (Negative); URINE UROBILINOGEN 0.2 E.U./dl (0.2-1.0)
[2016-07-22 17:13] LABS: ALKALINE PHOSPHATASE 142 U/L (46-116); SGOT 40 U/L (15-37); SGPT 32 U/L (30-65); TOTAL BILIRUBIN 0.4 mg/dL (<0.1-1.0); TOTAL PROTEIN 5.8 g/dL (6.4-8.2); TROPONIN-I < 0.04 ng/mL (<0.04-0.07)
[2016-07-22 17:22] LABS: BACTERIA None Seen /HPF (None Seen); CASTS None Seen /LPF (None Seen); CRYSTALS None Seen /LPF (None Seen); SQUAMOUS None Seen /LPF (0-3); URINE RBC >20 Many /HPF (0-2); URINE WBC None Seen /HPF (0-5)
[2016-07-22 18:02] LABS: AMP/METHAMP Negative (Negative); BARBITURATES Negative (Negative); BENZODIAZEPINES Negative (Negative); COCAINE Negative (Negative); METHADONE Negative (Negative); OPIATES POSITIVE (Negative); PCP Negative (Negative); THC POSITIVE (Negative)
[2016-07-22 21:56] VITALS: BP 221/114
[2016-07-22 22:38] LABS: HEMATOCRIT 34.9 % (42.0-52.0); HEMOGLOBIN 12.6 gm/dL (14.0-18.0); MCH 29.1 pg (26.0-34.0); MCHC 36.2 g/dL (28.0-37.0); MCV 80.5 fL (80.0-100.0); RBC 4.33 mil/uL (4.50-6.00); RDW 14.2 % (10.5-14.5); WBC 8.5 thou/uL (4.0-11.0)
[2016-07-22 22:54] LABS: CALCIUM 7.8 mg/dL (8.5-10.1); CREATININE 2.8 mg/dL (0.7-1.3); POTASSIUM 3.3 mmol/L (3.5-5.1)
[2016-07-23 03:30] VITALS: BP 184/82
[2016-07-23 07:30] VITALS: BP 165/93
[2016-07-23 12:00] VITALS: BP 188/110
[2016-07-23 16:40] VITALS: BP 200/117
[2016-07-23 19:24] VITALS: BP 143/86
[2016-07-23 19:29] LABS: HEMATOCRIT 31.3 % (42.0-52.0); HEMOGLOBIN 11.4 gm/dL (14.0-18.0); MCH 29.3 pg (26.0-34.0); MCHC 36.4 g/dL (28.0-37.0); MCV 80.5 fL (80.0-100.0); RBC 3.89 mil/uL (4.50-6.00); RDW 14.1 % (10.5-14.5); WBC 7.5 thou/uL (4.0-11.0)
[2016-07-23 19:39] LABS: CALCIUM 7.8 mg/dL (8.5-10.1); POTASSIUM 3.4 mmol/L (3.5-5.1)
[2016-07-24 00:01] VITALS: BP 184/127
[2016-07-24 04:42] VITALS: BP 192/116
[2016-07-24 07:29] VITALS: BP 184/109
[2016-07-24 07:37] LABS: HEMATOCRIT 31.8 % (42.0-52.0); HEMOGLOBIN 11.4 gm/dL (14.0-18.0); MCH 29.2 pg (26.0-34.0); MCV 81.1 fL (80.0-100.0); RBC 3.92 mil/uL (4.50-6.00); RDW 14.5 % (10.5-14.5); WBC 7.4 thou/uL (4.0-11.0)
[2016-07-24 08:01] LABS: CALCIUM 7.7 mg/dL (8.5-10.1); CREATININE 2.8 mg/dL (0.7-1.3); POTASSIUM 3.3 mmol/L (3.5-5.1)
[2016-07-24 11:32] VITALS: BP 153/93
[2016-07-24] MEDS ORDERED: CATAPRES0.1 MG PO (14:28)
[2016-07-24] MEDS ORDERED: AMLODIPINE BESY10 MG PO (14:28)
[2016-07-24 14:54] VITALS: BP 153/93
== END 2016-07-24 17:09 | disposition home or self-care (01) | DRG 682 ==
LOC: ER 15:58 → EROBS 18:22 → 2N 18:22
PROVIDERS: Hospitalist; Internal Medicine; Physician Assistant
DX: I12.9 Hypertensive chronic kidney disease with stage 1 through stage 4 chronic kidney disease, or unspecified chronic kidney disease (principal); N17.0 Acute kidney failure with tubular necrosis; E43 Unspecified severe protein-calorie malnutrition; I16.1 Hypertensive emergency; E10.43 Type 1 diabetes mellitus with diabetic autonomic (poly)neuropathy; E10.65 Type 1 diabetes mellitus with hyperglycemia; K31.84 Gastroparesis; N18.9 Chronic kidney disease, unspecified; F12.90 Cannabis use, unspecified, uncomplicated; E78.5 Hyperlipidemia, unspecified; E10.22 Type 1 diabetes mellitus with diabetic chronic kidney disease; Z79.899 Other long term (current) drug therapy; Z79.4 Long term (current) use of insulin; Z91.013 Allergy to seafood; Z83.3 Family history of diabetes mellitus; Z82.49 Family history of ischemic heart disease and other diseases of the circulatory system; Z68.30 Body mass index [BMI] 30.0-30.9, adult
CPT/HCPCS: 10081

== ENCOUNTER 2016-08-10 14:40 | Emergency (ER) | payer OTHER ==
[~2016-08-10] VITALS: Ht 182.9 cm; Wt 102.1 kg
--- NOTE | ~2016-08-10 | EKG ---
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 : 1985 Requested By: Cheyenne Finnegan Order Number: [id number] MD: Zach Altman Measurements Intervals [place] Rate: 97 P: 59 NH: 145 QRS: 36 QRSD: 88 T: 60 QT: 342 QTc: 435 Interpretive Statements Sinus rhythm ST elev, probable normal early repol pattern Compared to ECG 07/22/2016 16:46:11 ST (T wave) deviation now present Sinus tachycardia no longer present Electronically Signed On 08-10-2016 16:29:54 CDT by Zach Altman [email or web address] <ELECTRONICALLY SIGNED> By: Zach Altman MD 08/10/16 1629 1504 1504 Zach Altman MD /ANANDA
[~2016-08-10 14:40] MED LIST changes: +AMLODIPINE BESY10 MG PO; +CATAPRES0.1 MG PO
[2016-08-10 14:53] LABS: URINE BILIRUBIN NEGATIVE (Negative); URINE BLOOD 2+ (Negative); URINE COLOR YELLOW; URINE GLUCOSE-RANDOM* 1+ (Negative); URINE KETONES NEGATIVE (Negative); URINE NITRITE NEGATIVE (Negative); URINE PROTEIN (DIPSTICK) 3+ (Negative); URINE UROBILINOGEN 0.2 E.U./dl (0.2-1.0)
[2016-08-10 14:57] LABS: BACTERIA None Seen /HPF (None Seen); SQUAMOUS None Seen /LPF (0-3); URINE RBC 3-10 Few /HPF (0-2); URINE WBC None Seen /HPF (0-5)
[2016-08-10 14:58] LABS: CASTS None Seen /LPF (None Seen); CRYSTALS None Seen /LPF (None Seen)
[2016-08-10 16:19] LABS: ABSOLUTE NEUTROPHILS 3.8 thou/uL (1.4-8.2); BASOPHILS 0.8 % (0.0-2.0); EOSINOPHILS 1.7 % (0.0-3.0); HEMATOCRIT 32.4 % (42.0-52.0); HEMOGLOBIN 11.6 gm/dL (14.0-18.0); LYMPHOCYTES 23.5 % (24.0-44.0); MCH 29.3 pg (26.0-34.0); MCHC 35.8 g/dL (28.0-37.0); MCV 81.7 fL (80.0-100.0); PLATELET COUNT 257 thou/uL (150-400); RBC 3.97 mil/uL (4.50-6.00); RDW 15.5 % (10.5-14.5); WBC 5.4 thou/uL (4.0-11.0)
[2016-08-10 16:21] LABS: MANUAL DIFF NO
[2016-08-10 16:27] LABS: CALCIUM 8.3 mg/dL (8.5-10.1)
[2016-08-10 16:33] LABS: ALBUMIN 2.1 g/dL (3.4-5.0); TOTAL BILIRUBIN 0.4 mg/dL (<0.1-1.0); TOTAL PROTEIN 5.9 g/dL (6.4-8.2)
[2016-08-10 16:41] LABS: NT-PRO BRAIN NAT PEPTIDE 419 pg/mL (<300); TROPONIN-I < 0.04 ng/mL (<0.04-0.07)
[2016-08-10] MEDS ORDERED: ONDANSETRON HCL4 M2 PO (18:13)
[2016-08-10] MEDS ORDERED: HYDROCODONE-AP1 EAC6 PO (18:13)
[2016-08-10] MEDS ORDERED: PHENERGAN 25 MG25 M1 PO (18:13)
== END 2016-08-10 20:04 | disposition home or self-care (01) ==
LOC: ER 14:40
PROVIDERS: Nurse Practitioner Family
DX: E11.43 Type 2 diabetes mellitus with diabetic autonomic (poly)neuropathy (principal); K31.84 Gastroparesis; I12.9 Hypertensive chronic kidney disease with stage 1 through stage 4 chronic kidney disease, or unspecified chronic kidney disease; E10.22 Type 1 diabetes mellitus with diabetic chronic kidney disease; N18.9 Chronic kidney disease, unspecified; Z79.4 Long term (current) use of insulin; Z91.013 Allergy to seafood

== ENCOUNTER 2016-08-13 11:24 | Inpatient (IN) | payer OTHER ==
[~2016-08-13] VITALS: Ht 182.9 cm; Wt 102.1 kg
[~2016-08-13 11:24] MED LIST changes: +ONDANSETRON HCL4 M2 PO; +PHENERGAN 25 MG25 M1 PO
[2016-08-13 11:25] VITALS: BP 190/139
[2016-08-13 12:46] LABS: ABSOLUTE NEUTROPHILS 3.8 thou/uL (1.4-8.2); BASOPHILS 0.7 % (0.0-2.0); EOSINOPHILS 1.2 % (0.0-3.0); HEMATOCRIT 32.9 % (42.0-52.0); HEMOGLOBIN 11.5 gm/dL (14.0-18.0); LYMPHOCYTES 21.2 % (24.0-44.0); MCH 29.2 pg (26.0-34.0); MCHC 35.1 g/dL (28.0-37.0); MCV 83.4 fL (80.0-100.0); MONOCYTES 4.9 % (1.0-8.0); PLATELET COUNT 240 thou/uL (150-400); RBC 3.95 mil/uL (4.50-6.00); RDW 15.5 % (10.5-14.5); WBC 5.2 thou/uL (4.0-11.0)
[2016-08-13 12:49] LABS: MANUAL DIFF NO
[2016-08-13 12:56] LABS: ANION GAP 6 mmol/L (7-16); BUN 22 mg/dL (7-18); CALCIUM 7.8 mg/dL (8.5-10.1); CHLORIDE 107 mmol/L (98-107); CO2 29 mmol/L (21-32); CREATININE 3.1 mg/dL (0.7-1.3); GLUCOSE 292 mg/dL (74-106); POTASSIUM 4.3 mmol/L (3.5-5.1); SODIUM 142 mmol/L (136-145)
[2016-08-13 13:00] LABS: ALKALINE PHOSPHATASE 112 U/L (46-116); DIRECT BILIRUBIN < 0.1 mg/dL (<0.1-0.3); SGOT 65 U/L (15-37); SGPT 41 U/L (30-65); TOTAL BILIRUBIN 0.3 mg/dL (<0.1-1.0); TOTAL PROTEIN 5.8 g/dL (6.4-8.2)
[2016-08-13 16:30] VITALS: BP 209/128
[2016-08-13 17:03] VITALS: BP 226/135
[2016-08-13 20:00] VITALS: BP 188/95
[2016-08-14] VITALS: BP 162/100
[2016-08-14 02:01] LABS: HEMATOCRIT 28.8 % (42.0-52.0); HEMOGLOBIN 10.2 gm/dL (14.0-18.0); MCH 29.6 pg (26.0-34.0); MCHC 35.5 g/dL (28.0-37.0); MCV 83.3 fL (80.0-100.0); RBC 3.46 mil/uL (4.50-6.00); RDW 15.3 % (10.5-14.5); WBC 6.5 thou/uL (4.0-11.0)
[2016-08-14 02:19] LABS: ALBUMIN 1.7 g/dL (3.4-5.0); CALCIUM 7.2 mg/dL (8.5-10.1); CREATININE 2.8 mg/dL (0.7-1.3); POTASSIUM 3.7 mmol/L (3.5-5.1); TOTAL BILIRUBIN 0.3 mg/dL (<0.1-1.0); TOTAL PROTEIN 4.9 g/dL (6.4-8.2)
[2016-08-14 04:00] VITALS: BP 162/84
[2016-08-14 09:08] VITALS: BP 162/97
== END 2016-08-14 12:50 | disposition left against medical advice (07) | DRG 74 ==
LOC: ER 11:24 → 4E 16:05 → EROBS 16:05 → 4E 16:52
PROVIDERS: Emergency Medicine; Family Medicine
PROC: 02HV33Z Insertion of Infusion Device into Superior Vena Cava, Percutaneous Approach (ICD-10-PCS; principal; 2016-08-13)
DX: E10.43 Type 1 diabetes mellitus with diabetic autonomic (poly)neuropathy (principal); K31.84 Gastroparesis; E10.65 Type 1 diabetes mellitus with hyperglycemia; I12.9 Hypertensive chronic kidney disease with stage 1 through stage 4 chronic kidney disease, or unspecified chronic kidney disease; E10.22 Type 1 diabetes mellitus with diabetic chronic kidney disease; N18.9 Chronic kidney disease, unspecified; E78.5 Hyperlipidemia, unspecified; Z53.21 Procedure and treatment not carried out due to patient leaving prior to being seen by health care provider; Z79.899 Other long term (current) drug therapy; Z91.013 Allergy to seafood; Z79.4 Long term (current) use of insulin; Z87.442 Personal history of urinary calculi; Z83.3 Family history of diabetes mellitus; Z82.49 Family history of ischemic heart disease and other diseases of the circulatory system
CPT/HCPCS: 10783; 27001

== ENCOUNTER 2016-08-15 09:22 | Inpatient (IN) | payer OTHER ==
[~2016-08-15] VITALS: Ht 182.9 cm; Wt 106.6 kg
[2016-08-15 09:24] VITALS: BP 232/143
[2016-08-15 11:33] LABS: ABSOLUTE NEUTROPHILS 4.2 thou/uL (1.4-8.2); BASOPHILS 1.1 % (0.0-2.0); EOSINOPHILS 0.7 % (0.0-3.0); HEMATOCRIT 31.5 % (42.0-52.0); HEMOGLOBIN 11.3 gm/dL (14.0-18.0); MCH 29.5 pg (26.0-34.0); MCV 81.7 fL (80.0-100.0); MONOCYTES 4.2 % (1.0-8.0); PLATELET COUNT 224 thou/uL (150-400); RBC 3.85 mil/uL (4.50-6.00); RDW 15.3 % (10.5-14.5); WBC 5.2 thou/uL (4.0-11.0)
[2016-08-15 11:34] LABS: MANUAL DIFF NO
[2016-08-15 11:44] LABS: ANION GAP 4 mmol/L (7-16); BUN 19 mg/dL (7-18); CHLORIDE 109 mmol/L (98-107); CO2 27 mmol/L (21-32); CREATININE 2.9 mg/dL (0.7-1.3); GLUCOSE 299 mg/dL (74-106); POTASSIUM 3.9 mmol/L (3.5-5.1); SODIUM 140 mmol/L (136-145)
[2016-08-15 11:48] LABS: ALBUMIN 1.8 g/dL (3.4-5.0); ALKALINE PHOSPHATASE 108 U/L (46-116); DIRECT BILIRUBIN < 0.1 mg/dL (<0.1-0.3); SGOT 57 U/L (15-37); SGPT 37 U/L (30-65); TOTAL BILIRUBIN 0.5 mg/dL (<0.1-1.0); TOTAL PROTEIN 5.3 g/dL (6.4-8.2)
[2016-08-15 15:10] VITALS: BP 212/119
[2016-08-15 15:43] VITALS: BP 206/143
[2016-08-15 16:27] VITALS: BP 212/143
[2016-08-15 18:06] LABS: URINE BILIRUBIN NEGATIVE (Negative); URINE BLOOD 3+ (Negative); URINE COLOR YELLOW; URINE GLUCOSE-RANDOM* 2+ (Negative); URINE KETONES NEGATIVE (Negative); URINE NITRITE NEGATIVE (Negative); URINE PROTEIN (DIPSTICK) 3+ (Negative); URINE SPECIFIC GRAVITY 1.015 (1.003-1.035); URINE UROBILINOGEN 0.2 E.U./dl (0.2-1.0)
[2016-08-15 18:13] LABS: HYALINE CASTS 0-3 Few /LPF (None Seen); SQUAMOUS 0-3 Few /LPF (0-3)
[2016-08-15 18:14] LABS: BACTERIA None Seen /HPF (None Seen); CRYSTALS None Seen /LPF (None Seen); URINE RBC >20 Many /HPF (0-2); URINE WBC 0-5 Rare /HPF (0-5)
[2016-08-15 20:35] VITALS: BP 217/144
[2016-08-16] VITALS (140 sets, daily range): BP systolic 146–265; BP diastolic 98–162
[2016-08-16 11:24] LABS: CREATININE 2.9 mg/dL (0.7-1.3); POTASSIUM 3.6 mmol/L (3.5-5.1)
[2016-08-17] VITALS (71 sets, daily range): BP systolic 138–189; BP diastolic 73–901
[2016-08-17 04:15] LABS: ALBUMIN 1.5 g/dL (3.4-5.0); CALCIUM 7.6 mg/dL (8.5-10.1); TOTAL BILIRUBIN 0.6 mg/dL (<0.1-1.0); TOTAL PROTEIN 4.3 g/dL (6.4-8.2)
[2016-08-17 06:07] LABS: HEMATOCRIT 28.6 % (42.0-52.0); HEMOGLOBIN 10.2 gm/dL (14.0-18.0); MCH 29.5 pg (26.0-34.0); MCHC 35.6 g/dL (28.0-37.0); MCV 82.7 fL (80.0-100.0); RBC 3.46 mil/uL (4.50-6.00); RDW 15.1 % (10.5-14.5); WBC 7.3 thou/uL (4.0-11.0)
[2016-08-18 04:58] LABS: ABSOLUTE NEUTROPHILS 2.7 thou/uL (1.4-8.2); BASOPHILS 0.8 % (0.0-2.0); EOSINOPHILS 1.6 % (0.0-3.0); HEMATOCRIT 25.4 % (42.0-52.0); HEMOGLOBIN 9.3 gm/dL (14.0-18.0); LYMPHOCYTES 36.6 % (24.0-44.0); MCH 29.5 pg (26.0-34.0); MCHC 36.7 g/dL (28.0-37.0); MCV 80.4 fL (80.0-100.0); MONOCYTES 6.4 % (1.0-8.0); PLATELET COUNT 193 thou/uL (150-400); POLYS 54.6 % (36.0-66.0); RBC 3.16 mil/uL (4.50-6.00); RDW 15.1 % (10.5-14.5)
[2016-08-18 05:00] LABS: MANUAL DIFF NO
[2016-08-18 05:31] VITALS: BP 133/77
[2016-08-18 05:35] VITALS: BP 137/83
== END 2016-08-18 05:00 | disposition left against medical advice (07) | DRG 683 ==
LOC: ER 09:22 → EROBS 14:11 → 3N 15:08 → 4W 08-16 10:42
PROVIDERS: Hospitalist; Nurse Practitioner
DX: I12.9 Hypertensive chronic kidney disease with stage 1 through stage 4 chronic kidney disease, or unspecified chronic kidney disease (principal); I16.9 Hypertensive crisis, unspecified; K52.9 Noninfective gastroenteritis and colitis, unspecified; E86.0 Dehydration; E10.9 Type 1 diabetes mellitus without complications; E10.22 Type 1 diabetes mellitus with diabetic chronic kidney disease; E10.43 Type 1 diabetes mellitus with diabetic autonomic (poly)neuropathy; I16.0 Hypertensive urgency; N18.9 Chronic kidney disease, unspecified; E78.5 Hyperlipidemia, unspecified; K31.84 Gastroparesis; Z53.21 Procedure and treatment not carried out due to patient leaving prior to being seen by health care provider; Z79.4 Long term (current) use of insulin; Z79.899 Other long term (current) drug therapy; Z87.442 Personal history of urinary calculi; Z91.013 Allergy to seafood
CPT/HCPCS: 10045; 10795

== ENCOUNTER 2016-09-17 09:53 | Emergency (ER) | payer OTHER ==
[~2016-09-17] VITALS: Ht 188 cm; Wt 129.3 kg
[2016-09-17 10:16] LABS: URINE BILIRUBIN NEGATIVE (Negative); URINE BLOOD 3+ (Negative); URINE COLOR YELLOW; URINE GLUCOSE-RANDOM* 2+ (Negative); URINE KETONES NEGATIVE (Negative); URINE NITRITE NEGATIVE (Negative); URINE PROTEIN (DIPSTICK) 3+ (Negative); URINE UROBILINOGEN 0.2 E.U./dl (0.2-1.0)
[2016-09-17 10:43] LABS: ABSOLUTE NEUTROPHILS 3.4 thou/uL (1.4-8.2); BASOPHILS 1.4 % (0.0-2.0); EOSINOPHILS 1.5 % (0.0-3.0); HEMATOCRIT 30.9 % (42.0-52.0); LYMPHOCYTES 24.4 % (24.0-44.0); MCHC 35.8 g/dL (28.0-37.0); MCV 83.9 fL (80.0-100.0); MONOCYTES 4.1 % (1.0-8.0); PLATELET COUNT 140 thou/uL (150-400); POLYS 68.6 % (36.0-66.0); RBC 3.68 mil/uL (4.50-6.00); RDW 15.2 % (10.5-14.5); WBC 4.9 thou/uL (4.0-11.0)
[2016-09-17 10:46] LABS: BACTERIA None Seen /HPF (None Seen); CASTS None Seen /LPF (None Seen); SQUAMOUS 0-3 Few /LPF (0-3); URINE WBC 0-5 Rare /HPF (0-5)
[2016-09-17 10:47] LABS: CRYSTALS None Seen /LPF (None Seen)
[2016-09-17 10:53] LABS: MANUAL DIFF NO
[2016-09-17 11:19] LABS: CALCIUM 8.1 mg/dL (8.5-10.1); CREATININE 3.4 mg/dL (0.7-1.3); POTASSIUM 4.3 mmol/L (3.5-5.1)
[2016-09-17 11:26] LABS: ALBUMIN 1.9 g/dL (3.4-5.0); TOTAL BILIRUBIN 0.3 mg/dL (<0.1-1.0); TOTAL PROTEIN 5.7 g/dL (6.4-8.2)
[2016-09-17] MEDS ORDERED: LEVSIN-SL0.125 MG SL (13:12)
[2016-09-17] MEDS ORDERED: PHENERGAN 25 MG25 M1 PO (13:12)
== END 2016-09-17 13:14 | disposition home or self-care (01) ==
LOC: ER 09:53
PROVIDERS: Physician Assistant
DX: I12.9 Hypertensive chronic kidney disease with stage 1 through stage 4 chronic kidney disease, or unspecified chronic kidney disease (principal); E10.22 Type 1 diabetes mellitus with diabetic chronic kidney disease; N18.9 Chronic kidney disease, unspecified; R11.2 Nausea with vomiting, unspecified; R31.9 Hematuria, unspecified; R10.84 Generalized abdominal pain; G89.29 Other chronic pain; F12.90 Cannabis use, unspecified, uncomplicated; E10.43 Type 1 diabetes mellitus with diabetic autonomic (poly)neuropathy; K31.84 Gastroparesis; Z91.013 Allergy to seafood

== ENCOUNTER 2016-09-25 15:42 | Inpatient (IN) | payer OTHER ==
[~2016-09-25] VITALS: Ht 182.9 cm; Wt 108.0 kg
--- NOTE | ~2016-09-25 | HC ---
[facility] [address] CONSULTATION Name: MONET L[address] Sarthak Room #: 301-I [facility] IN ..#: [id number] Admission: 09/25/16 Attend Phys: Frank Adhikari DO Discharge: 09/26/16 Date of : 83 Report #: [id number] THIS REPORT FOR: //name// CC: FAM unknown Frank Adhikari REASON FOR PRESENTATION: Nausea and vomiting. HISTORY OF PRESENT ILLNESS: The patient is well known to me. He is a 31-year-old with extensive past medical history including diabetes mellitus, hypertension, gastroparesis. Does look like that there is a history of noncompliance. He presented complaining of nausea, vomiting. He was admitted for further evaluation and management. On presentation to the Emergency Room, he was found to have an extremely elevated blood pressure. He is also found to be having some issues related to his kidneys with an elevated creatinine at 3.9. The patient had seen Dr. Torrez and Dr. Maldonado in my practice in June of this year. He carries an extensive past medical history of renal disease. He has a very longstanding diabetes mellitus. His baseline creatinine is anywhere from 2.5-3. It looks like that this was presumed to be all due to diabetes mellitus. He has significant proteinuria. Occasional, he would have significant edema. He does not recall his medications. At one point, he was on lisinopril, but this was stopped. He has significant hypoalbuminemia with all criteria of nephrotic range proteinuria. I was consulted to manage his chronic kidney disease. PAST MEDICAL HISTORY: 1. Diabetes mellitus. 2. Stage 4 chronic kidney disease. 3. Diabetic retinopathy. 4. Diabetic gastroparesis. 5. Diabetic neuropathy. 6. Hypertension. PAST SURGICAL HISTORY: Cataract. FAMILY HISTORY: Significant for diabetes mellitus and hypertension. ALLERGIES: No known drug allergies. SOCIAL HISTORY: He is . No drug or alcohol abuse. He is unemployed. MEDICATIONS ON PRESENTATION: 1. Carvedilol twice a day. 2. Hydralazine t.i.d. 3. Lantus. 4. Ephedra. The patient is not really sure if he is taking an KEVON inhibitor or not. [facility] [address] [place] [address] CONSULTATION Name: MONET L[address] Room #: 301-I [facility]#: [id number] Admission: 09/25/16 Attend Phys: Frank Adhikari DO Discharge: 09/26/16 Date of : 83 Report #: [id number] REVIEW OF SYSTEMS: GENERAL: No fever or chills. CARDIOVASCULAR: No chest pain or palpitation. PULMONARY: No cough or hemoptysis. GASTROINTESTINAL: Nausea and vomiting. GENITOURINARY: No frequency, no urgency. MUSCULOSKELETAL: No back pain. No morning stiffness. NEUROLOGICAL: No dizziness, no syncope. PHYSICAL EXAMINATION: GENERAL: He is alert, oriented, in no apparent distress. VITAL SIGNS: Pulse rate is 85, temperature 36.7, blood pressure 165/93. On presentation, it was 200/127. HEAD AND NECK: No jugular venous distention. CHEST: Clear to auscultation. CARDIOVASCULAR: No rub detected. ABDOMEN: Soft, nontender with no hepatosplenomegaly. LOWER EXTREMITIES: No edema. LABORATORY VALUES: Reviewed. Sodium 135, BUN 25, creatinine is down to 3.3, albumin is 1.5. IMAGING: Including his CT were reviewed. ASSESSMENT, IMPRESSION, PLAN: 1. Stage 4 chronic kidney disease. 2. Gastroparesis. 3. Diabetic retinopathy. 4. Blood pressure out of control. 5. Diabetic neuropathy. 6. Creatinine is on the trend down, discontinue IV fluid. 7. This is all diabetic related and ultimately, will need to be on an angiotensin converting enzyme inhibitor plus minus spironolactone for renal protection. Extensive counseling regarding his kidney disease was carried out with him. 8. Resume his amlodipine and continue with the carvedilol. 9. No evidence of fluid overload at this point and I will hold on any diuretics. 10. Ultimately will need to be on an angiotensin converting enzyme inhibitor or an ARB plus a diuretic plus the calcium tunnel luis felipe. This is for renal protection and blood pressure control. 11. Continue to school counselor about blood sugar. 12. Strict input and output. [facility] [address] [place] [address] CONSULTATION Name: [address] Room #: 301-I DIS IN M.R.#: [id number] Admission: 09/25/16 Attend Phys: Frank Adhikari DO Discharge: 09/26/16 Date of : 83 Report #: [id number] 13. Avoid nephrotoxins. 14. We will need strict close followup for his renal function as an outpatient. <ELECTRONICALLY SIGNED> By: Silver Fisher MD 09/27/16 0800 1108 1155 Silver Fisher MD /nt
--- NOTE | ~2016-09-25 | H ---
[facility] [place] [address] HISTORY AND PHYSICAL Name: MONET L[address] Room #: 301-I [facility] IN M.R.#: [id number] Admission: 09/25/16 Attend Phys: Frank Adhikari DO Discharge: 09/26/16 Date of : 83 Report #: [id number] THIS REPORT FOR: //name// CC: FAM unknown Frank Adhikari DATE OF SERVICE: 09/25/2016 DATE OF SERVICE: 09/25/2016 ATTENDING PHYSICIAN: Dr. Frank Adhikari. PRIMARY CARE PHYSICIAN: ____ at [facility]. CHIEF COMPLAINT: Abdominal pain, nausea and vomiting. HISTORY OF PRESENT ILLNESS: The patient is a 31-year-old -[place] male who has been hospitalized in the ER at [facility] multiple times for this same complaint. He usually comes in with onset of nausea, vomiting and abdominal pain. He has previously been diagnosed with gastroparesis. At one point, he was prescribed Reglan. He says he does have it at home, but only takes it p.r.n. He left AMA multiple times after being admitted as well, once in 07/2016 and again just on 09/17/2016 last week. He says that then he has actually been admitted at [facility] overnight as well. He has previously been seen by GI here as well as at [facility]. He seems to have had an EGD done at [facility] about a year ago. He cannot remember when he last had a gastric emptying study. He has also been noncompliant with his medications for blood pressure. He says he has been unable to keep his medications down. He also has chronic kidney disease stage 3, but his creatinine been gradually increasing over the last few months. According to our records, he has been seen by ____ in the past and at one point was mentioned that his creatinine runs between 2-3. The patient denies ever seeing a outsole skiver outpatient. He came into the ER vomiting and was given Phenergan, Zofran and Benadryl and Dilaudid. Once he got on the floor, he has not had any further vomiting. He is asking to eat and asking to have his Dilaudid dose increased. He states that "2 mg of Dilaudid works the best." He does not take any chronic pain medications at home. He denies fevers or chills. He does admit to smoking marijuana daily. He does state that it has been mentioned to him that marijuana could be contributing to his symptoms, but yet he still smokes it daily. PAST MEDICAL HISTORY: Diabetes type 1, hypertension, hyperlipidemia, chronic kidney disease stage 3-4, gastroparesis, pancreatitis. PAST SURGICAL HISTORY: None. HOME MEDICATIONS: Apidra 8 units with meals, Lantus insulin 17 units [address] [address] HISTORY AND PHYSICAL Name: MONET L[address] Room #: 301-I [facility] IN ..#: [id number] Admission: 09/25/16 Attend Phys: Frank Adhikari DO Discharge: 09/26/16 Date of : 83 Report #: [id number] bedtime, carvedilol 12.5 mg p.o. b.i.d., hydralazine unknown dose t.i.d. ALLERGIES: SHELLFISH AND SHRIMP. SOCIAL HISTORY: The patient denies any history of tobacco use. Denies any alcohol use. He does smoke marijuana on a daily basis. His last use was yesterday. FAMILY HISTORY: His mother has diabetes type 1 and hypertension. His aunt has diabetes type 1. His father in a work-related accident. REVIEW OF SYSTEMS: Twelve-point review of systems was reviewed with the patient, otherwise negative unless stated in the HPI. PHYSICAL EXAMINATION: GENERAL: The patient is an alert male in no acute distress. VITAL SIGNS: Temperature is 36.9, heart rate 107, respirations 20, blood pressure initially was 211/127, oxygen 100% on room air. HEENT: PERRLA. Sclerae are nonicteric. Oral mucosa is pink and moist. NECK: Supple, no JVD noted. CARDIAC: Normal S1, S2. No murmurs, rubs or gallops. RESPIRATORY: Breath sounds are clear bilaterally. No wheezing or rhonchi. Breathing is nonlabored. ABDOMEN: Soft and nondistended. He did have slight tenderness to palpation throughout, but worse in the mid abdomen. No guarding or rigidity. He does have hyperactive bowel sounds. VASCULAR: There is no edema noted. Pedal pulses are 2+. NEUROLOGIC: The patient is alert and oriented x 3. Speech is clear. He is moving all extremities equally. No focal neuro deficits noted. LABORATORY DATA AND DIAGNOSTICS: WBC 5.0, hemoglobin 10.2, platelets 236. Sodium 136, potassium 4.3, BUN 27, creatinine 2.9. Glucose 232. LFTs are within normal limits. Lipase 65. CT of abdomen and pelvis shows diffuse subcutaneous edema with a small amount of ascites. These changes have progressed since prior study. There is diffuse edema and stranding around the pancreas suggesting pancreatitis and peripancreatic fluid. ASSESSMENT AND PLAN: 1. Nausea, vomiting, abdominal pain, likely due to gastroparesis. There seems to be a component of cyclic vomiting, which may be due to cannabis hyperemesis. The patient really has never tried to stop smoking marijuana to see if his symptoms are improved for a longer period of time. He has multiple hospitalizations here and at another facilities for the same thing. He may be getting dependent on IV pain medications when he is hospitalized and therefore goes into withdrawal of opiates as well, which may be contributing to his symptoms. He cannot remember when he last had a gastric emptying study. His [facility] [address] [place] [address] HISTORY AND PHYSICAL Name: MONET L[address] Room #: 301-I [facility].#: [id number] Admission: 09/25/16 Attend Phys: Frank Adhikari DO Discharge: 09/26/16 Date of : 83 Report #: [id number] symptoms have currently improved. We will try clear liquids and advance diet as tolerated. Resume Reglan. 2. Hypertension, uncontrolled, likely due to medication noncompliance and possibly some opiate withdrawal. We will resume his home medications and continue to monitor. 3. Diabetes type 1. Blood sugars are elevated. He is noncompliant with his insulin regimen. We will continue home insulin and add sliding scale insulin and Accu-Cheks. 4. Possible pancreatitis per CT. These findings were nonspecific on CT. Since his lipase is normal and he really does not have much abdominal pain at this time, we will go ahead and advance diet slowly. 5. Ivywe-fb-yxjephn kidney disease stage 4. His creatinine has gradually been increasing over the last few months. He has previously been seen by Nephrology. At one point, it was mentioned that he does have significant proteinuria and nephrotic syndrome. We will check a UA. He had at one point been on lisinopril and it is not clear when that was discontinued, but it may be of benefit to resume at some point for the proteinuria. Await further Nephrology recommendations. 6. Deep venous thrombosis prophylaxis, place sequential compression devices. We will continue to follow the patient closely throughout the hospitalization and make changes based on clinical status. <ELECTRONICALLY SIGNED> By: JOHN Cadena 09/27/16 0811 0951 1053 JOHN Cadena /malcom
[~2016-09-25 15:42] MED LIST changes: +LEVSIN-SL0.125 MG SL
[2016-09-25 15:43] VITALS: BP 211/127
[2016-09-25] MEDS ORDERED: HYDRALAZINE 2525 MG PO (16:05)
[2016-09-25 17:37] LABS: ABSOLUTE NEUTROPHILS 3.3 thou/uL (1.4-8.2); BASOPHILS 0.7 % (0.0-2.0); EOSINOPHILS 1.3 % (0.0-3.0); HEMATOCRIT 28.2 % (42.0-52.0); HEMOGLOBIN 10.2 gm/dL (14.0-18.0); LYMPHOCYTES 24.9 % (24.0-44.0); MANUAL DIFF NO; MCH 30.2 pg (26.0-34.0); MCHC 36.1 g/dL (28.0-37.0); MCV 83.6 fL (80.0-100.0); MONOCYTES 6.8 % (1.0-8.0); PLATELET COUNT 236 thou/uL (150-400); POLYS 66.3 % (36.0-66.0); RBC 3.37 mil/uL (4.50-6.00); RDW 15.1 % (10.5-14.5)
[2016-09-25 17:40] LABS: ANION GAP 1 mmol/L (7-16); BUN 27 mg/dL (7-18); CALCIUM 7.9 mg/dL (8.5-10.1); CHLORIDE 106 mmol/L (98-107); CO2 29 mmol/L (21-32); CREATININE 3.9 mg/dL (0.7-1.3); GLUCOSE 232 mg/dL (74-106); POTASSIUM 4.3 mmol/L (3.5-5.1); SODIUM 136 mmol/L (136-145)
[2016-09-25 17:47] LABS: ALBUMIN 1.7 g/dL (3.4-5.0); ALKALINE PHOSPHATASE 102 U/L (46-116); DIRECT BILIRUBIN < 0.1 mg/dL (<0.1-0.3); SGOT 31 U/L (15-37); SGPT 25 U/L (30-65); TOTAL BILIRUBIN 0.2 mg/dL (<0.1-1.0); TOTAL PROTEIN 5.2 g/dL (6.4-8.2)
[2016-09-25 20:03] VITALS: BP 211/127
[2016-09-25 20:07] VITALS: BP 172/105
[2016-09-25 20:25] VITALS: BP 189/99
[2016-09-25 23:44] VITALS: BP 177/101
[2016-09-26 04:00] VITALS: BP 139/66
[2016-09-26 05:13] LABS: HEMATOCRIT 27.5 % (42.0-52.0); HEMOGLOBIN 9.7 gm/dL (14.0-18.0); MCH 29.9 pg (26.0-34.0); MCHC 35.4 g/dL (28.0-37.0); MCV 84.5 fL (80.0-100.0); RBC 3.25 mil/uL (4.50-6.00); RDW 15.2 % (10.5-14.5); WBC 5.9 thou/uL (4.0-11.0)
[2016-09-26 05:25] LABS: ALBUMIN 1.5 g/dL (3.4-5.0); CALCIUM 7.3 mg/dL (8.5-10.1); CREATININE 3.3 mg/dL (0.7-1.3); POTASSIUM 3.8 mmol/L (3.5-5.1); TOTAL BILIRUBIN 0.2 mg/dL (<0.1-1.0); TOTAL PROTEIN 4.7 g/dL (6.4-8.2)
[2016-09-26 07:10] LABS: URINE BILIRUBIN NEGATIVE (Negative); URINE BLOOD 1+ (Negative); URINE COLOR YELLOW; URINE GLUCOSE-RANDOM* TRACE (Negative); URINE KETONES NEGATIVE (Negative); URINE NITRITE NEGATIVE (Negative); URINE PROTEIN (DIPSTICK) 3+ (Negative); URINE SPECIFIC GRAVITY 1.015 (1.003-1.035); URINE UROBILINOGEN 0.2 E.U./dl (0.2-1.0)
[2016-09-26 07:32] LABS: BACTERIA 1-9 Few /HPF (None Seen); CASTS None Seen /LPF (None Seen); CRYSTALS None Seen /LPF (None Seen); SQUAMOUS 0-3 Few /LPF (0-3); URINE RBC 3-10 Few /HPF (0-2); URINE WBC 0-5 Rare /HPF (0-5)
[2016-09-26 08:32] VITALS: BP 165/93
[2016-09-26 15:07] LABS: URINE CREATININE-RANDOM* 90.6 mg/dL
[2016-09-26 15:15] LABS: PROT/CREAT RATIO 7.2; URINE PROTEIN-RANDOM* 653.3 mg/dL (<11.9)
[2016-09-26 15:56] VITALS: BP 165/93
== END 2016-09-26 16:43 | disposition home or self-care (01) | DRG 73 ==
LOC: ER 15:42 → 3N 19:10 → EROBS 19:10 → 3N 20:20
PROVIDERS: Hospitalist; Nurse Practitioner
DX: E10.43 Type 1 diabetes mellitus with diabetic autonomic (poly)neuropathy (principal); K85.90 Acute pancreatitis without necrosis or infection, unspecified; N18.4 Chronic kidney disease, stage 4 (severe); N17.9 Acute kidney failure, unspecified; R18.8 Other ascites; K31.84 Gastroparesis; I12.9 Hypertensive chronic kidney disease with stage 1 through stage 4 chronic kidney disease, or unspecified chronic kidney disease; E78.5 Hyperlipidemia, unspecified; F12.129 Cannabis abuse with intoxication, unspecified; E10.40 Type 1 diabetes mellitus with diabetic neuropathy, unspecified; E10.319 Type 1 diabetes mellitus with unspecified diabetic retinopathy without macular edema; E10.22 Type 1 diabetes mellitus with diabetic chronic kidney disease; Z83.3 Family history of diabetes mellitus; Z82.49 Family history of ischemic heart disease and other diseases of the circulatory system; Z79.4 Long term (current) use of insulin; Z79.899 Other long term (current) drug therapy; Z91.013 Allergy to seafood; Z87.442 Personal history of urinary calculi; Z91.14 Patient's other noncompliance with medication regimen
CPT/HCPCS: 10094

== ENCOUNTER 2016-10-11 11:24 | Inpatient (IN) | payer OTHER ==
[~2016-10-11] VITALS: Ht 182.9 cm; Wt 102.1 kg
--- NOTE | ~2016-10-11 | HC ---
[facility] [place] [address] CONSULTATION Name: [address] Room #: 412-P [facility] IN M.R.#: [id number] Admission: 10/11/16 Attend Phys: Frank Adhikari DO Discharge: Date of : 83 Report #: [id number] THIS REPORT FOR: //name// CC: FAM unknown Frank Adhikari CHIEF COMPLAINT: Scrotal swelling. HISTORY OF PRESENT ILLNESS: The patient is a very pleasant 31-year-old gentleman who is being seen today at the request Dr. Adhikari for scrotal swelling. He presented to the Emergency Room yesterday with nausea, vomiting, lower abdominal pain and scrotal swelling. He has been in bed rest and received Rocephin and reports decreased pain and swelling. He had no trauma. He denies difficulties voiding. ALLERGIES: SHELLFISH. ILLNESSES: Include hypertension, renal failure with chronic kidney disease, diabetes. MEDICATIONS: Hydralazine 25 mg t.i.d., insulin, Coreg 12.5 mg daily, Lasix 40 mg b.i.d. FAMILY HISTORY: Significant for diabetes, hypertension. SOCIAL HISTORY: Nonsmoker, nonalcoholic. He does use marijuana. REVIEW OF SYSTEMS: He denies shortness of breath or chest pain. PHYSICAL EXAMINATION: GENERAL: He is comfortable-appearing gentleman, lying in bed. VITAL SIGNS: Temperature is 36.8, blood pressure 187/88, pulse 91. ABDOMEN: Soft, without masses. Normal phallus. He has thickening of the scrotal wall with no intrascrotal pathology. Scrotal ultrasound reveals scrotal edema with no abscess and no intratesticular masses or epididymitis. LABORATORY DATA: White count 11.1, hemoglobin 10.6, hematocrit 29.4, platelets 272,000. Sodium 141, potassium 4.4, chloride 107, CO2 of 28, BUN 24, creatinine 3.7, lactic acid 0.8, calcium 8.2. AST is 60. Albumin 1.8. IMPRESSION: Scrotal swelling, which is most consistent with cellulitis. PLAN: I would recommend a 7-day course of cephalosporin since he seems to be [facility] [address] [place] [address] CONSULTATION Name: [address] Room #: 412-P [facility] IN .R.#: [id number] Admission: 10/11/16 Attend Phys: Frank Adhikari DO Discharge: Date of : 83 Report #: [id number] responding to Rocephin. He can be converted to this any time. I am happy to reassess. <ELECTRONICALLY SIGNED> By: Valentino Garibay MD 10/13/16 0924 1020 1224 Valentino Garibay MD /nt
--- NOTE | ~2016-10-11 | HC ---
[facility] [place] [address] CONSULTATION Name: [address] Room #: 412-P [facility] IN M.R.#: [id number] Admission: 10/11/16 Attend Phys: Frank Adhikari DO Discharge: 10/15/16 Date of : 83 Report #: [id number] THIS REPORT FOR: //name// CC: FAM unknown Frank Adhikari REASON FOR CONSULTATION: Uncontrolled hypertension. HISTORY OF PRESENT ILLNESS: The patient is a 31-year-old with a history of recurrent chronic nausea and vomiting as well as a history of hypertension and chronic renal insufficiency, which is assumed to be related to his poorly controlled hypertension. He has seen nephrology here in the past. He has been in and out of multiple hospitals recently. He presented with worsening nausea and vomiting, reports he has not been able to take his antihypertensive medications. He denies any chest pain or chest tightness. He denies any shortness of breath. He denies PND, orthopnea. REVIEW OF SYSTEMS: A 12-point review of systems was performed. GENERAL: No fevers, chills. HEENT: No blurred vision. CARDIOVASCULAR: As above. PULMONARY: No productive cough. GASTROINTESTINAL: Positive for nausea, vomiting and abdominal pain. GENITOURINARY: No dysuria. Has some scrotal swelling. MUSCULOSKELETAL: No myalgias or arthralgias. ENDOCRINE: No heat or cold intolerance. PAST MEDICAL HISTORY: As reviewed above. SOCIAL HISTORY: Does not smoke. FAMILY HISTORY: Noncontributory. ALLERGIES: INCLUDE SHELLFISH. MEDICATIONS: Have been reviewed and he is on carvedilol at home. He is also on insulin and Lasix and hydralazine. PHYSICAL EXAMINATION: VITAL SIGNS: Temperature 36.8, pulse 92, respiration 18, blood pressure 168/98, was high as 213/113 yesterday, sats are 100%. GENERAL: He is in no acute distress. HEENT: Oropharynx is clear. NECK: Supple, with no thyromegaly. HEART: Regular rate and rhythm with no murmurs, rubs or gallops. He does not have elevated jugular venous pressure. LUNGS: Clear to auscultation bilaterally. [facility] [address] [place] [address] CONSULTATION Name: [address] Room #: 412-P [facility].#: [id number] Admission: 10/11/16 Attend Phys: Frank Adhikari DO Discharge: 10/15/16 Date of : 83 Report #: [id number] ABDOMEN: Soft, nontender ____. EXTREMITIES: There is no clubbing, cyanosis, edema. NEUROLOGIC: Cranial nerves 2-12 are intact. LABORATORY DATA: White count 5.8, hemoglobin 9.5, platelets 257, sodium ____ 137, potassium 3.7, BUN 24, creatinine 3.5. Urine drug screen positive for marijuana and some opiates. ProBNP is 419. Troponin is normal. Testicular ultrasound reviewed. IMPRESSION: In summary, the patient is a 31-year-old with history of hypertension, chronic renal insufficiency, who has been having nausea, vomiting and has been able to take his antihypertensive medications. I recommend that we resume his carvedilol and see how he does if this continues to remain. I will also add some Norvasc as well for his blood pressure. PLAN: We will continue to try and optimize his blood pressure. I have recommended that the Nephrology service be consulted to assist in his management. <ELECTRONICALLY SIGNED> By: Zach Altman MD 10/17/16 1106 1234 1635 Zach Altman MD /nt
--- NOTE | ~2016-10-11 | HC ---
[facility] [place] [address] CONSULTATION Name: [address] Room #: 412-P ADM IN M.R.#: [id number] Admission: 10/11/16 Attend Phys: Frank Adhikari DO Discharge: Date of : 83 Report #: [id number] THIS REPORT FOR: //name// CC: FAM unknown Frank Adhikari GASTROENTEROLOGY CONSULTATION DATE OF SERVICE: 10/12/2016. SUBJECTIVE: The patient is a pleasant 31-year-old -[place]ian male who I have been asked to see for further evaluation of abdominal pain, nausea and vomiting. He carries a diagnosis of cyclic nausea and vomiting, but has been treated outside institutions including [facility] and [facility]. His last upper endoscopy was approximately 1 week ago. He has had gastroparesis as well and currently takes Reglan for that. Other medical history includes renal insufficiency, hypertension, gastroparesis, cyclical vomiting, chronic renal failure, and hypertension. His medications include Reglan 10 mg a.c. and at bedtime at home and antihypertensive medications he claims he takes which are detailed in the computer. Medications in hospital included promethazine, Zofran, hydromorphone, hydralazine, sodium chloride, labetalol, Haldol. SOCIAL HISTORY: Denies alcohol consumption or tobacco consumption, but does smoke marijuana occasionally. FAMILY HISTORY: Noncontributory. REVIEW OF SYSTEMS: Negative for weight loss, weakness or fatigue. Denies head, eyes, ears, nose or throat complaints. He denies chest pain, chest palpitation, chest pressure, cough, shortness of breath, wheezing, genitourinary, musculoskeletal or neuropsychiatric complaints beyond that mentioned above. PERTINENT LABORATORY DATA: Include white cell count 11.1, hemoglobin 10.6. Serum chemistry notable for BUN 24, creatinine 3.7, calcium 8.3, AST 60, ALT 38, total protein 5.5, albumin 1.8, lipase . IMAGING STUDIES: Reveal a testicular ultrasound, but no other images. He did have a CT of the abdomen and pelvis earlier this month, which revealed diffuse edema and stranding around the pancreas suggesting pancreatitis. ASSESSMENT AND PLAN: In summary, the patient is a somewhat confusing presentation with a suspected documented gastroparesis by abnormal gastric emptying time at [facility]. Unfortunately records are not available to me. He has been also treated at [facility] as recently as 1 week ago. Our records are limited here in regard to prior workup. He has abdominal pain, nausea and [facility] [address] [place] [address] CONSULTATION Name: [address] L[address] Room #: 412-P [facility] IN [facility].#: [id number] Admission: 10/11/16 Attend Phys: Frank Adhikari DO Discharge: Date of : 83 Report #: [id number] vomiting, which all can be associated with diabetic gastroparesis or cyclical nausea and vomiting. At this point, I would treat him symptomatically as well as therapy with PPI therapy, advance his diet slowly and avoid excessive narcotics or other anticholinergic medications. Amitriptyline has been effective for cyclical nausea and vomiting, which is poorly understood. I recommend continuing his Reglan 10 a.c. and at bedtime and further followup as an outpatient. If indeed he stays as inpatient, we will consider repeating his gastric emptying time on his Reglan and off narcotics to assess his response to therapy. He has received GI care at other institutions and I encouraged him to follow up with them as they have his prior record. Thanks again for allowing us to participate in the care of this nice man. <ELECTRONICALLY SIGNED> By: Curtis Jones MD 10/13/16 0850 1058 1217 Curtis Jones MD /nt
--- NOTE | ~2016-10-11 | 2DMMODE ---
[facility] [place] [address] 2 D/M-MODE ECHOCARDIOGRAM Name: DOMINGOMONET W Room #: 412-P [facility] IN .R.#: [id number] Admission: 10/11/16 Attend Phys: Frank Adhikari, Discharge: Date of : 83 Date of Service: 10/14/16 1029 Report #: [id number] THIS REPORT FOR: //name// APPROVED REPORT Study performed: 10/14/2016 09:38:53 EXAM: Comprehensive 2D, Doppler, and color-flow Echocardiogram Patient Location: Echo lab Room #: [facility] Status: routine BSA: 2.24 HR: 94 bpm BP: 193/104 mmHg Rhythm: NSR Other Information Study Quality: Good Indications HTN. Hx: DM, HTN, HLP 2D Dimensions RVDd: 38.22 mm IVSd: 17.09 (7-11mm) LVOT Diam: 22.63 (18-24mm) LVDd: 41.57 mm PWd: 17.14 (7-11mm) Ascending Ao: 34.45 (22-36mm) Aortic Root: 33.36 mm Volumes Left Atrial Volume (Systole) Single Plane 4CH: 43.72 mL Single Plane 2CH: 54.07 mL LA ESV Index: 23.00 mL/m2 Aortic Valve AoV Peak Swapnil.: 1.54 m/s AO Peak Gr.: 9.48 mmHg LVOT Max P.07 mmHg LVOT Max V: 1.23 m/s NATE Vmax: 3.22 cm2 Mitral Valve E/A Ratio: 0.9 MV Decel. Time: 160.30 ms MV E Max Swapnil.: 0.59 m/s MV A Swapnil.: 0.63 m/s [facility] [place] [address] 2 D/M-MODE ECHOCARDIOGRAM Name: MONET LANE Room #: 412-P [facility]#: [id number] Admission: 10/11/16 Attend Phys: Frank Adhikari, Discharge: Date of : 83 Date of Service: 10/14/16 1029 Report #: [id number] MV PHT: 46.49 ms IVRT: 79.58 ms Pulmonary Valve PV Peak Swapnil.: 1.34 m/s PV Peak Gr.: 7.18 mmHg Pulmonary Vein P Vein S: 0.55 m/s P Vein D: 0.48 m/s P Vein S/D Ratio: 1.15 Tricuspid Valve RAP Estimate: 5.00 mmHg Left Ventricle The left ventricle is normal size. There is normal LV segmental wall motion. Severe concentric left ventricular hypertrophy. Left ventricular systolic function is normal. LVEF is 65%. Mild diastolic dysfunction is present (impaired relaxation pattern). Right Ventricle The right ventricle is normal size. The right ventricular systolic function is normal. Atria The left atrium size is normal. The right atrium size is normal. Aortic Valve The aortic valve is normal in structure. Trace to mild aortic regurgitation. There is no aortic valvular stenosis. Mitral Valve The mitral valve is normal in structure. No mitral regurgitation. No evidence of mitral valve stenosis. Tricuspid Valve The tricuspid valve is normal in structure. There is no tricuspid valve regurgitation noted. Pulmonic Valve The pulmonary valve is normal in structure. Trace pulmonic regurgitation. Great Vessels The aortic root is normal in size. The ascending aorta is normal in [facility] [address] [place] [address] 2 D/M-MODE ECHOCARDIOGRAM Name: MONET LANE Room #: 412-P [facility] IN M.R.#: [id number] Admission: 10/11/16 Attend Phys: Frank Adhikari, Discharge: Date of : 83 Date of Service: 10/14/16 1029 Report #: [id number] size. IVC is normal in size and collapses >50% with inspiration. Pericardium Small pericardial effusion noted. <Conclusion> Left ventricular systolic function is normal. There is normal LV segmental wall motion. Severe concentric left ventricular hypertrophy consistent with hypertensive vs hypertrophic cardiomyopathy. LVEF is 65%. The aortic valve is normal in structure. Trace to mild aortic regurgitation. The mitral valve is normal in structure. No mitral regurgitation. Pulmonary artery pressure could not be reliably ascertained Small pericardial effusion noted. <ELECTRONICALLY SIGNED> By: Facundo Polanco MD, FACC 10/14/16 1029 1029 1029 Facundo Polanco MD, FACC /INF
[~2016-10-11 11:24] MED LIST changes: +HYDRALAZINE 2525 MG PO
[2016-10-11 11:25] VITALS: BP 232/164
[2016-10-11] MEDS ORDERED: FUROSEMIDE 20 M20 MG PO (11:34)
[2016-10-11 11:58] LABS: MCHC 36.1 g/dL (28.0-37.0); RDW 14.5 % (10.5-14.5)
[2016-10-11 11:59] LABS: ABSOLUTE NEUTROPHILS 3.7 thou/uL (1.4-8.2); ANION GAP 6 mmol/L (7-16); BASOPHILS 1.3 % (0.0-2.0); BUN 24 mg/dL (7-18); CALCIUM 8.3 mg/dL (8.5-10.1); CHLORIDE 107 mmol/L (98-107); CO2 28 mmol/L (21-32); CREATININE 3.7 mg/dL (0.7-1.3); EOSINOPHILS 3.1 % (0.0-3.0); GLUCOSE 153 mg/dL (74-106); HEMATOCRIT 29.4 % (42.0-52.0); HEMOGLOBIN 10.6 gm/dL (14.0-18.0); LYMPHOCYTES 28.9 % (24.0-44.0); MCH 29.6 pg (26.0-34.0); MCV 82.2 fL (80.0-100.0); MONOCYTES 5.6 % (1.0-8.0); POLYS 61.1 % (36.0-66.0); POTASSIUM 4.4 mmol/L (3.5-5.1); RBC 3.58 mil/uL (4.50-6.00); SODIUM 141 mmol/L (136-145); WBC 11.1 thou/uL (4.0-11.0)
[2016-10-11 12:01] LABS: MANUAL DIFF NO
[2016-10-11 12:04] LABS: ALBUMIN 1.8 g/dL (3.4-5.0); ALKALINE PHOSPHATASE 102 U/L (46-116); DIRECT BILIRUBIN < 0.1 mg/dL (<0.1-0.3); SGOT 60 U/L (15-37); SGPT 38 U/L (30-65); TOTAL BILIRUBIN 0.2 mg/dL (<0.1-1.0); TOTAL PROTEIN 5.5 g/dL (6.4-8.2)
[2016-10-11 12:21] LABS: PLATELET COUNT 272 thou/uL (150-400); PLATELET ESTIMATE NORMAL
[2016-10-11 16:07] VITALS: BP 223/108
[2016-10-11 17:20] VITALS: BP 191/94
[2016-10-11 20:00] VITALS: BP 176/108
[2016-10-12] VITALS (7 sets, daily range): BP systolic 149–222; BP diastolic 87–126
[2016-10-13] VITALS (8 sets, daily range): BP systolic 168–192; BP diastolic 97–116
[2016-10-13 05:40] LABS: ABSOLUTE NEUTROPHILS 3.9 thou/uL (1.4-8.2); BASOPHILS 0.8 % (0.0-2.0); EOSINOPHILS 0.8 % (0.0-3.0); HEMATOCRIT 25.9 % (42.0-52.0); HEMOGLOBIN 9.5 gm/dL (14.0-18.0); LYMPHOCYTES 24.6 % (24.0-44.0); MCH 30.1 pg (26.0-34.0); MCHC 36.6 g/dL (28.0-37.0); MCV 82.2 fL (80.0-100.0); MONOCYTES 6.3 % (1.0-8.0); PLATELET COUNT 257 thou/uL (150-400); POLYS 67.5 % (36.0-66.0); RBC 3.15 mil/uL (4.50-6.00); RDW 14.3 % (10.5-14.5); WBC 5.8 thou/uL (4.0-11.0)
[2016-10-13 05:43] LABS: MANUAL DIFF NO
[2016-10-13 05:49] LABS: CALCIUM 7.8 mg/dL (8.5-10.1); CREATININE 3.5 mg/dL (0.7-1.3); POTASSIUM 3.7 mmol/L (3.5-5.1)
[2016-10-14 05:29] VITALS: BP 193/104
[2016-10-14 08:30] VITALS: BP 218/133
[2016-10-14 16:30] VITALS: BP 194/109
[2016-10-14 19:31] VITALS: BP 178/119
[2016-10-14 23:26] VITALS: BP 188/100
[2016-10-15 03:33] VITALS: BP 171/80
[2016-10-15 04:48] LABS: URINE BILIRUBIN NEGATIVE (Negative); URINE BLOOD 2+ (Negative); URINE COLOR YELLOW; URINE GLUCOSE-RANDOM* 1+ (Negative); URINE KETONES NEGATIVE (Negative); URINE NITRITE NEGATIVE (Negative); URINE PROTEIN (DIPSTICK) 3+ (Negative); URINE UROBILINOGEN 0.2 E.U./dl (0.2-1.0)
[2016-10-15 05:09] LABS: BACTERIA 1-9 Few /HPF (None Seen); CASTS None Seen /LPF (None Seen); CRYSTALS None Seen /LPF (None Seen); SQUAMOUS None Seen /LPF (0-3); URINE RBC 3-10 Few /HPF (0-2); URINE WBC 0-5 Rare /HPF (0-5)
[2016-10-15 05:33] LABS: URINE CREATININE-RANDOM* 151.6 mg/dL
[2016-10-15 05:43] LABS: URINE PROTEIN-RANDOM* 1201.3 mg/dL (<11.9)
[2016-10-15 06:27] LABS: ALBUMIN 1.8 g/dL (3.4-5.0); CALCIUM 8.1 mg/dL (8.5-10.1); CREATININE 3.5 mg/dL (0.7-1.3); PHOSPHORUS 4.5 mg/dL (2.5-4.9); POTASSIUM 3.8 mmol/L (3.5-5.1)
[2016-10-15 09:56] VITALS: BP 180/123
[2016-10-15 10:01] VITALS: BP 192/110
[2016-10-16 09:09] LABS: A/G RATIO 0.7 (0.7-1.7); ALBUMIN 2.3 g/dL (2.9-4.4); ALPHA 1 0.3 g/dL (0.0-0.4); ALPHA 2 0.9 g/dL (0.4-1.0); BETA 1.1 g/dL (0.7-1.3); GAMMA 1.1 g/dL (0.4-1.8); M-SPIKE Not Observed g/dL (Not Observed)
[2016-10-16 13:08] LABS: KAPPA/LAMBDA RATIO 1.63 (0.26-1.65); LAMBDA FREE LIGHT CHAINS 44.9 mg/L (5.7-26.3)
== END 2016-10-15 13:53 | disposition home or self-care (01) | DRG 74 ==
LOC: ER 11:24 → EROBS 15:57 → 4N 16:33
PROVIDERS: Emergency Medicine; Family Medicine; Hospitalist
DX: E11.43 Type 2 diabetes mellitus with diabetic autonomic (poly)neuropathy (principal); N18.5 Chronic kidney disease, stage 5; N49.2 Inflammatory disorders of scrotum; I10 Essential (primary) hypertension; I11.9 Hypertensive heart disease without heart failure; F12.90 Cannabis use, unspecified, uncomplicated; K31.84 Gastroparesis; I13.10 Hypertensive heart and chronic kidney disease without heart failure, with stage 1 through stage 4 chronic kidney disease, or unspecified chronic kidney disease; Z91.013 Allergy to seafood; Z79.899 Other long term (current) drug therapy; E11.22 Type 2 diabetes mellitus with diabetic chronic kidney disease; R80.9 Proteinuria, unspecified; G43.A0 Cyclical vomiting, in migraine, not intractable; Z83.3 Family history of diabetes mellitus; Z79.4 Long term (current) use of insulin; Z82.49 Family history of ischemic heart disease and other diseases of the circulatory system
CPT/HCPCS: 10091; 27001

== ENCOUNTER 2016-10-25 19:56 | Emergency (ER) | payer OTHER ==
[~2016-10-25] VITALS: Ht 188 cm; Wt 104.3 kg
--- NOTE | ~2016-10-25 | EKG ---
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
[~2016-10-25 19:56] MED LIST changes: +FUROSEMIDE 20 M20 MG PO
[2016-10-25 21:40] LABS: ABSOLUTE NEUTROPHILS 4.1 thou/uL (1.4-8.2); BASOPHILS 1.1 % (0.0-2.0); HEMATOCRIT 27.1 % (42.0-52.0); HEMOGLOBIN 9.8 gm/dL (14.0-18.0); LYMPHOCYTES 22.6 % (24.0-44.0); MCH 30.3 pg (26.0-34.0); MCHC 36.3 g/dL (28.0-37.0); MCV 83.4 fL (80.0-100.0); PLATELET COUNT 247 thou/uL (150-400); POLYS 68.3 % (36.0-66.0); RBC 3.25 mil/uL (4.50-6.00); RDW 14.3 % (10.5-14.5)
[2016-10-25 21:45] LABS: MANUAL DIFF NO
[2016-10-25 21:47] LABS: CREATININE 3.3 mg/dL (0.7-1.3); POTASSIUM 4.3 mmol/L (3.5-5.1)
[2016-10-25 21:53] LABS: ALBUMIN 1.8 g/dL (3.4-5.0); TOTAL BILIRUBIN 0.3 mg/dL (<0.1-1.0); TOTAL PROTEIN 5.3 g/dL (6.4-8.2)
[2016-10-25] MEDS ORDERED: HYDROCODONE-AP1 EAC6 PO (22:55)
[2016-10-25] MEDS ORDERED: PHENERGAN 25 MG25 M1 PO (22:55)
[2016-10-25 23:06] LABS: URINE BILIRUBIN NEGATIVE (Negative); URINE BLOOD 2+ (Negative); URINE COLOR YELLOW; URINE GLUCOSE-RANDOM* TRACE (Negative); URINE KETONES NEGATIVE (Negative); URINE NITRITE NEGATIVE (Negative); URINE PROTEIN (DIPSTICK) 3+ (Negative); URINE UROBILINOGEN 0.2 E.U./dl (0.2-1.0)
[2016-10-25 23:36] LABS: SQUAMOUS None Seen /LPF (0-3); URINE RBC 3-10 Few /HPF (0-2); URINE WBC 0-5 Rare /HPF (0-5)
[2016-10-25 23:37] LABS: BACTERIA 1-9 Few /HPF (None Seen); CASTS None Seen /LPF (None Seen); CRYSTALS None Seen /LPF (None Seen)
== END 2016-10-25 23:22 | disposition home or self-care (01) ==
LOC: ER 19:56
PROVIDERS: Nurse Practitioner Family
DX: G89.29 Other chronic pain (principal); R10.84 Generalized abdominal pain; G43.A0 Cyclical vomiting, in migraine, not intractable; N50.89 Other specified disorders of the male genital organs; I12.9 Hypertensive chronic kidney disease with stage 1 through stage 4 chronic kidney disease, or unspecified chronic kidney disease; E10.22 Type 1 diabetes mellitus with diabetic chronic kidney disease; N18.9 Chronic kidney disease, unspecified; E10.43 Type 1 diabetes mellitus with diabetic autonomic (poly)neuropathy; K31.84 Gastroparesis; E78.5 Hyperlipidemia, unspecified; Z91.013 Allergy to seafood

== ENCOUNTER 2017-01-14 16:15 | Emergency (ER) | payer OTHER ==
[~2017-01-14] VITALS: Ht 182.9 cm; Wt 99.8 kg
[~2017-01-14 16:15] MED LIST changes: +PHENERGAN12.5 M2 RECTAL; +ZOFRAN ODT4 M1 PO
[2017-01-14 17:06] LABS: ABSOLUTE NEUTROPHILS 3.8 thou/uL (1.4-8.2); BASOPHILS 0.7 % (0.0-2.0); EOSINOPHILS 1.7 % (0.0-3.0); HEMATOCRIT 29.3 % (42.0-52.0); HEMOGLOBIN 10.3 gm/dL (14.0-18.0); LYMPHOCYTES 23.5 % (24.0-44.0); MCH 28.5 pg (26.0-34.0); MCHC 35.1 g/dL (28.0-37.0); MCV 81.2 fL (80.0-100.0); MONOCYTES 4.3 % (1.0-8.0); PLATELET COUNT 299 thou/uL (150-400); POLYS 69.8 % (36.0-66.0); RBC 3.61 mil/uL (4.50-6.00); RDW 14.8 % (10.5-14.5); WBC 5.4 thou/uL (4.0-11.0)
[2017-01-14 17:24] LABS: MANUAL DIFF NO
[2017-01-14 17:25] LABS: ANION GAP 4 mmol/L (7-16); BUN 30 mg/dL (7-18); CALCIUM 8.1 mg/dL (8.5-10.1); CHLORIDE 105 mmol/L (98-107); CO2 27 mmol/L (21-32); CREATININE 4.4 mg/dL (0.7-1.3); GLUCOSE 229 mg/dL (74-106); POTASSIUM 4.4 mmol/L (3.5-5.1); SODIUM 136 mmol/L (136-145)
[2017-01-14 17:30] LABS: ALBUMIN 1.6 g/dL (3.4-5.0); ALKALINE PHOSPHATASE 104 U/L (46-116); DIRECT BILIRUBIN < 0.1 mg/dL (<0.1-0.3); SGOT 93 U/L (15-37); SGPT 62 U/L (30-65); TOTAL BILIRUBIN 0.3 mg/dL (<0.1-1.0); TOTAL PROTEIN 5.6 g/dL (6.4-8.2)
[2017-01-14] MEDS ORDERED: REGLAN 10 MG TA10 MG PO (18:31)
[2017-01-14] MEDS ORDERED: NORCO 5-325 TA1 EACH PO (18:31)
== END 2017-01-14 19:03 | disposition home or self-care (01) ==
LOC: ER 16:15
PROVIDERS: Nurse Practitioner
DX: G89.29 Other chronic pain (principal); R10.9 Unspecified abdominal pain; G43.A0 Cyclical vomiting, in migraine, not intractable; I12.9 Hypertensive chronic kidney disease with stage 1 through stage 4 chronic kidney disease, or unspecified chronic kidney disease; E11.22 Type 2 diabetes mellitus with diabetic chronic kidney disease; N18.9 Chronic kidney disease, unspecified; Z79.4 Long term (current) use of insulin; E78.5 Hyperlipidemia, unspecified; E11.43 Type 2 diabetes mellitus with diabetic autonomic (poly)neuropathy; K31.84 Gastroparesis; Z88.8 Allergy status to other drugs, medicaments and biological substances; Z91.013 Allergy to seafood

== ENCOUNTER 2017-06-29 19:08 | Emergency (ER) | payer OTHER ==
[~2017-06-29] VITALS: Ht 182.9 cm; Wt 102.1 kg
--- NOTE | ~2017-06-29 | EKG ---
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 Sales Consultant: MZOOK : 1985 Requested By: Farhan Angulo Order Number: [id number] MD: Facundo Polanco Measurements Intervals [place] Rate: 105 P: 26 [place]: 152 QRS: 21 QRSD: 82 T: 103 QT: 356 QTc: 471 Interpretive Statements Sinus tachycardia Anteroseptal infarct, old Abnormal T, consider ischemia, lateral leads Baseline wander in lead(s) V1 Compared to ECG 10/25/2016 20:04:25 lateral T wave abnormality is more pronounced septal Q waves are now present Electronically Signed On 06-30-2017 8:12:49 CDT by Facundo Polanco [email or web address] <ELECTRONICALLY SIGNED> By: Facundo Polanco MD, [facility] 06/30/17 08 29 29 Facundo Polanco MD, [facility] /EPI
[2017-06-29 19:49] LABS: ABSOLUTE NEUTROPHILS 3.7 thou/uL (1.4-8.2); EOSINOPHILS 1.9 % (0.0-3.0); HEMOGLOBIN 10.8 gm/dL (14.0-18.0); LYMPHOCYTES 25.6 % (24.0-44.0); MCH 29.3 pg (26.0-34.0); MCHC 33.9 g/dL (28.0-37.0); MCV 86.4 fL (80.0-100.0); MONOCYTES 4.7 % (1.0-8.0); PLATELET COUNT 289 thou/uL (150-400); POLYS 66.8 % (36.0-66.0); RDW 15.7 % (10.5-14.5); WBC 5.5 thou/uL (4.0-11.0)
[2017-06-29 19:58] LABS: CALCIUM 8.2 mg/dL (8.5-10.1); CREATININE 8.7 mg/dL (0.7-1.3); POTASSIUM 5.4 mmol/L (3.5-5.1)
[2017-06-29 20:04] LABS: ALBUMIN 2.7 g/dL (3.4-5.0); TOTAL BILIRUBIN 0.6 mg/dL (<0.1-1.0); TOTAL PROTEIN 6.4 g/dL (6.4-8.2)
[2017-06-29] MEDS ORDERED: REGLAN 10 MG TA10 MG PO (23:43)
== END 2017-06-30 00:17 | disposition home or self-care (01) ==
LOC: ER 19:08
PROVIDERS: Physician Assistant
DX: I16.0 Hypertensive urgency (principal); E10.22 Type 1 diabetes mellitus with diabetic chronic kidney disease; I12.0 Hypertensive chronic kidney disease with stage 5 chronic kidney disease or end stage renal disease; N18.6 End stage renal disease; Z91.013 Allergy to seafood; R00.2 Palpitations; R10.9 Unspecified abdominal pain; E78.5 Hyperlipidemia, unspecified

== ENCOUNTER 2017-11-20 14:15 | Inpatient (IN) | payer OTHER ==
[~2017-11-20] VITALS: Ht 182.9 cm; Wt 98.4 kg
[2017-11-20] VITALS (22 sets, daily range): BP systolic 123–229; BP diastolic 67–125
--- NOTE | ~2017-11-20 | HC ---
[facility] [place] [address] CONSULTATION Name: [address] Room #: 358-P ADM IN M.R.#: [id number] Admission: 11/20/17 Attend Phys: Michael Greene MD Discharge: Date of : 83 Report #: [id number] THIS REPORT FOR: //name// CC: JERAMIE physician/PCP Michael Greene DATE OF SERVICE: 11/21/2017 INCOMPLETE DICTATION NEPHROLOGY CONSULTATION REASON FOR CONSULTATION: End-stage renal disease. HISTORY OF PRESENT ILLNESS: The patient is well known to our service from previous admissions to this hospital with chronic kidney disease, who has been on dialysis for the past 10 months or so. He has had long-standing issues with nausea and vomiting, history of gastroparesis and history of cyclic vomiting, now comes in with a recurrence of his same problem, also abdominal pain. PAST MEDICAL HISTORY: Long-standing diabetes with retinopathy, history of gastroparesis, peripheral neuropathy and hypertension. FAMILY HISTORY: Positive for diabetes and hypertension. SOCIAL HISTORY: Denies cigarettes or alcohol. MEDICATIONS: Current medications as listed in the record include amlodipine 10 mg daily, clonidine 0.1 mg b.i.d., hydralazine 75 mg b.i.d., hydrocodone, insulin, metoclopramide 10 mg a.c. and at bedtime and Zofran. REVIEW OF SYSTEMS: GENERAL: The patient is rather lethargic and he answers some questions. It is difficult to get really much in the way of history from. As far as I can tell, he has had the nausea and the vomiting over the last several days, but no bloody emesis. He has had some abdominal pain. EYES: His vision is okay. ENT: Hearing okay, swallows okay. ENDOCRINE: Positive for the diabetes. RESPIRATORY: Denies shortness of breath or pleuritic pain. CARDIAC: He is denying chest pain or swelling. He does have hypertension. GASTROINTESTINAL: He has got the nausea and vomiting, as mentioned. GENITOURINARY: No dysuria or hematuria. NEUROLOGIC: He has got peripheral neuropathy. MUSCULOSKELETAL: Negative. [facility] [address] [place] [address] CONSULTATION Name: MONET L[address] Room #: 358-P [facility] IN ..#: [id number] Admission: 11/20/17 Attend Phys: Michael Greene MD Discharge: Date of : 83 Report #: [id number] ALLERGIES: REPORTEDLY TO SHRIMP. PHYSICAL EXAMINATION: GENERAL: This is a somewhat ill-appearing gentleman. He is rather sedated with narcotics. SKIN: Unremarkable. SKELETAL: Well developed, well nourished. HEENT: Extraocular movements are full. NECK: Supple. CHEST: Clear to auscultation. HEART: Regular. ABDOMEN: Actually rather soft and nontender. EXTREMITIES: Show no edema. NEUROLOGIC: Grossly intact. LABORATORY DATA: Sodium 130, potassium is 4.3, chloride 93, bicarbonate 33, BUN 24 and creatinine 7.4. ASSESSMENT: 1. End-stage renal disease, on dialysis. We will order his dialysis for today. 2. Recurrent vomiting, may be due to gastroparesis. 3. Abdominal pain, nonspecific, appears to be chronically taking opiates. 4. Diabetes mellitus with triopathy. 5. Hypertension. DICTATION ENDS HERE. <ELECTRONICALLY SIGNED> By: Aleksey Zaldivar MD 11/22/17 0636 1100 0030 Aleksey Zaldivar MD /nt
[2017-11-20 14:44] LABS: ABSOLUTE NEUTROPHILS 2.9 thou/uL (1.4-8.2); EOSINOPHILS 1.5 % (0.0-3.0); HEMATOCRIT 29.6 % (42.0-52.0); HEMOGLOBIN 10.3 gm/dL (14.0-18.0); LYMPHOCYTES 23.8 % (24.0-44.0); MCH 30.2 pg (26.0-34.0); MCHC 34.6 g/dL (28.0-37.0); MCV 87.5 fL (80.0-100.0); MONOCYTES 4.8 % (1.0-8.0); PLATELET COUNT 216 thou/uL (150-400); POLYS 68.9 % (36.0-66.0); RBC 3.39 mil/uL (4.50-6.00); RDW 15.3 % (10.5-14.5); WBC 4.2 thou/uL (4.0-11.0)
[2017-11-20 15:05] LABS: CALCIUM 8.1 mg/dL (8.5-10.1); CREATININE 6.2 mg/dL (0.7-1.3); POTASSIUM 4.5 mmol/L (3.5-5.1)
[2017-11-20 15:06] LABS: ALBUMIN 2.7 g/dL (3.4-5.0); TOTAL BILIRUBIN 0.7 mg/dL (<0.1-1.0); TOTAL PROTEIN 6.6 g/dL (6.4-8.2)
[2017-11-20 15:38] LABS: BE(vivo) 4.1 mmol/L (-2 to +3); HCO3 28.5 mmol/L (22.0-26.0); PCO2 VENOUS 42.1 mmHg (41.0-51.0); PO2 VENOUS 44.7 mmHg (35.0-45.0)
[2017-11-20] MEDS ORDERED: CLONIDINE0.1 PO (16:35)
[2017-11-20] MEDS ORDERED: ONDANSETRON HCL4 M2 PO (16:37)
[2017-11-20] MEDS ORDERED: REGLAN 10 MG TA10 MG PO (16:37)
[2017-11-20] MEDS ORDERED: AMLODIPINE BESY10 MG PO (16:37)
[2017-11-21] VITALS (41 sets, daily range): BP systolic 128–176; BP diastolic 56–113
[2017-11-21 07:30] LABS: ABSOLUTE NEUTROPHILS 3.2 thou/uL (1.4-8.2); BASOPHILS 1.2 % (0.0-2.0); EOSINOPHILS 1.8 % (0.0-3.0); HEMATOCRIT 31.4 % (42.0-52.0); HEMOGLOBIN 10.6 gm/dL (14.0-18.0); LYMPHOCYTES 24.7 % (24.0-44.0); MCH 29.3 pg (26.0-34.0); MCHC 33.9 g/dL (28.0-37.0); MCV 86.4 fL (80.0-100.0); MONOCYTES 5.9 % (1.0-8.0); PLATELET COUNT 245 thou/uL (150-400); POLYS 66.4 % (36.0-66.0); RBC 3.64 mil/uL (4.50-6.00); RDW 15.6 % (10.5-14.5); WBC 4.8 thou/uL (4.0-11.0)
[2017-11-21 07:38] LABS: CALCIUM 8.4 mg/dL (8.5-10.1); CREATININE 7.4 mg/dL (0.7-1.3); MAGNESIUM 1.9 mg/dL (1.8-2.4); POTASSIUM 4.3 mmol/L (3.5-5.1)
[2017-11-22] VITALS (7 sets, daily range): BP systolic 126–152; BP diastolic 78–93
[2017-11-22 12:03] LABS: HEMATOCRIT 29.1 % (42.0-52.0); HEMOGLOBIN 9.7 gm/dL (14.0-18.0); MCH 29.5 pg (26.0-34.0); MCHC 33.4 g/dL (28.0-37.0); MCV 88.3 fL (80.0-100.0); RBC 3.29 mil/uL (4.50-6.00); RDW 15.1 % (10.5-14.5); WBC 3.4 thou/uL (4.0-11.0)
[2017-11-22 12:15] LABS: ALBUMIN 2.5 g/dL (3.4-5.0); CALCIUM 8.3 mg/dL (8.5-10.1); CREATININE 5.9 mg/dL (0.7-1.3); MAGNESIUM 2.1 mg/dL (1.8-2.4); PHOSPHORUS 4.5 mg/dL (2.5-4.9); POTASSIUM 4.8 mmol/L (3.5-5.1); TOTAL BILIRUBIN 0.5 mg/dL (<0.1-1.0); TOTAL PROTEIN 6.4 g/dL (6.4-8.2)
== END 2017-11-22 18:42 | disposition home or self-care (01) | DRG 73 ==
LOC: ER 14:15 → EROBS 15:50 → 3W 15:50
PROVIDERS: Emergency Medicine; Internal Medicine; Nurse Practitioner
PROC: 5A1D70Z Performance of Urinary Filtration, Intermittent, Less than 6 Hours Per Day (ICD-10-PCS; principal; 2017-11-21)
DX: E10.43 Type 1 diabetes mellitus with diabetic autonomic (poly)neuropathy (principal); N18.6 End stage renal disease; R18.8 Other ascites; E87.1 Hypo-osmolality and hyponatremia; E46 Unspecified protein-calorie malnutrition; I16.9 Hypertensive crisis, unspecified; I12.0 Hypertensive chronic kidney disease with stage 5 chronic kidney disease or end stage renal disease; K52.9 Noninfective gastroenteritis and colitis, unspecified; E10.22 Type 1 diabetes mellitus with diabetic chronic kidney disease; E78.5 Hyperlipidemia, unspecified; I16.0 Hypertensive urgency; E10.319 Type 1 diabetes mellitus with unspecified diabetic retinopathy without macular edema; E87.6 Hypokalemia; E10.42 Type 1 diabetes mellitus with diabetic polyneuropathy; E83.51 Hypocalcemia; E10.65 Type 1 diabetes mellitus with hyperglycemia; D63.8 Anemia in other chronic diseases classified elsewhere; K31.84 Gastroparesis; Z91.013 Allergy to seafood; Z83.3 Family history of diabetes mellitus; Z82.49 Family history of ischemic heart disease and other diseases of the circulatory system; Z68.29 Body mass index [BMI] 29.0-29.9, adult; Z87.442 Personal history of urinary calculi; Z99.2 Dependence on renal dialysis
CPT/HCPCS: 10779; 32100

== ENCOUNTER 2017-11-25 21:57 | Emergency (ER) | payer OTHER ==
[~2017-11-25] VITALS: Ht 182.9 cm; Wt 99.8 kg
[~2017-11-25 21:57] MED LIST changes: +CLONIDINE0.1 PO
[2017-11-25 23:05] LABS: ABSOLUTE NEUTROPHILS 2.7 thou/uL (1.4-8.2); BASOPHILS 1.2 % (0.0-2.0); EOSINOPHILS 2.4 % (0.0-3.0); HEMATOCRIT 28.5 % (42.0-52.0); LYMPHOCYTES 30.9 % (24.0-44.0); MCH 30.3 pg (26.0-34.0); MCHC 35.1 g/dL (28.0-37.0); MCV 86.4 fL (80.0-100.0); MONOCYTES 3.1 % (1.0-8.0); PLATELET COUNT 203 thou/uL (150-400); POLYS 62.4 % (36.0-66.0); RDW 14.8 % (10.5-14.5); WBC 4.3 thou/uL (4.0-11.0)
[2017-11-25 23:11] LABS: CALCIUM 8.4 mg/dL (8.5-10.1); POTASSIUM 5.1 mmol/L (3.5-5.1)
[2017-11-25 23:19] LABS: ALBUMIN 2.9 g/dL (3.4-5.0); TOTAL BILIRUBIN 0.7 mg/dL (<0.1-1.0); TOTAL PROTEIN 7.3 g/dL (6.4-8.2)
[2017-11-26] MEDS ORDERED: ONDANSETRON HCL4 M2 PO (00:53)
== END 2017-11-26 01:44 | disposition home or self-care (01) ==
LOC: ER 21:57
PROVIDERS: Emergency Medicine
DX: I12.0 Hypertensive chronic kidney disease with stage 5 chronic kidney disease or end stage renal disease (principal); R11.2 Nausea with vomiting, unspecified; R10.84 Generalized abdominal pain; E78.5 Hyperlipidemia, unspecified; E10.22 Type 1 diabetes mellitus with diabetic chronic kidney disease; N18.6 End stage renal disease; E10.43 Type 1 diabetes mellitus with diabetic autonomic (poly)neuropathy; K31.84 Gastroparesis; Z91.013 Allergy to seafood; Z99.2 Dependence on renal dialysis

== ENCOUNTER 2017-12-11 15:31 | Inpatient (IN) | payer OTHER ==
[~2017-12-11] VITALS: Ht 182.9 cm; Wt 97.1 kg
--- NOTE | ~2017-12-11 | EKG ---
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 Nurse Practitioner: JALIL : 1985 Requested By: Goran Kwan Order Number: [id number] MD: Facundo Polanco Measurements Intervals [place] Rate: 96 P: 31 IN: 168 QRS: -9 QRSD: 84 T: 92 QT: 357 QTc: 452 Interpretive Statements Sinus rhythm Nonspecific T wave abnormality Poor R wave progression Compared to ECG 06/29/2017 20:30:15 No significant change was found Electronically Signed On 12-12-2017 16:54:47 CDT by Facundo Polanco [email or web address] <ELECTRONICALLY SIGNED> By: Facundo Polanco MD, [facility] 12/12/17 1654 1538 1538 Facundo Polanco MD, [facility] /EPI
--- NOTE | ~2017-12-11 | EXE ---
[facility] [address] [employer] [place] [address] STRESS ECHOCARDIOGRAM Name: ZEN LANEAnnika De León Room #: 349-I ADM IN ..#: [id number] Admission: 12/11/17 Attend Phys: Ezra Prajapati Discharge: Date of : 83 Date of Service: 12/12/17 1227 Report #: [id number] THIS REPORT FOR: //name// APPROVED REPORT Study performed: 12/12/2017 10:37:37 Exam: Stress Echocardiogram Indication: Chest pain Stress Nurse: Mahnaz Huerta RN Room #: 349 Status: routine Ht: 6 ft 0 in HR: 95 bpm BP: 168/88 mmHg Medical History Medical History: Diabetes, HTN Procedure The patient underwent an Exercise Stress Test using the John Protocol. Blood pressure, heart rate, and EKG were monitored. An Echocardiogram was performed by vtc technician in four stages in quad fashion. At peak stress, four selected images were obtained and placed side by side with resting images for comparison. Stress Test Details Stress Test: Exercise stress testing was performed using a John protocol. HR Resting HR: 95 bpm Max Heart Rate (APMHR): 187 bpm Target HR (85% APMHR): 158 bpm BP Resting BP: 168/88 mmHg ECG Clinical Reason for Termination: Leg pain/Claudication Exercise duration: 2 min 30 sec Highest Stage Achieved: Stage 1: 1.7 mph at 10% grade. Pre-Stress Echo The resting Echocardiogram showed normal left ventricular [facility] [address] [place] [address] STRESS ECHOCARDIOGRAM Name: MONET LANE Room #: 349-I [facility] IN .R.#: [id number] Admission: 12/11/17 Attend Phys: Ezra Prajapati Discharge: Date of : 83 Date of Service: 12/12/17 122 Report #: [id number] contractility with an estimated Ejection Fraction of about 55%. Post-Stress Echo Patient was only able to complete 2 minutes on the treadmill. Patient complained of leg pain and fatigue then sat down. Test was terminated. No post exercise images were obtained. <ELECTRONICALLY SIGNED> By: Aleksey Mota MD, FACC 12/12/171226 26 26 Aleksey Mota MD, FACC /INF
--- NOTE | ~2017-12-11 | 2DMMODE ---
[facility] [address] [place] [address] 2 D/M-MODE ECHOCARDIOGRAM Name: DOMINGOMONET W Room #: 349-I ADM IN [facility]#: [id number] Admission: 12/11/17 Attend Phys: Ezra Prajapati Discharge: Date of : 83 Date of Service: 12/12/17 1226 Report #: [id number] THIS REPORT FOR: //name// APPROVED REPORT Study performed: 12/12/2017 11:29:46 EXAM: Comprehensive 2D, Doppler, and color-flow Echocardiogram Patient Location: In-Patient Room #: 349 Status: routine BSA: 2.19 HR: 91 bpm BP: 168/88 mmHg Other Information Study Quality: Good Indications Diabetes Chest Pain Hypertension/HDD 2D Dimensions RVDd: 41.20 mm IVSd: 21.15 (7-11mm) LVOT Diam: 23.10 (18-24mm) LVDd: 46.88 mm PWd: 21.19 (7-11mm) Ascending Ao: 30.97 (22-36mm) LVDs: 34.48 (25-40mm) Aortic Root: 30.30 mm IVC: 22.00 mm Volumes Left Atrial Volume (Systole) Single Plane 4CH: 87.34 mL Single Plane 2CH: 118.56 mL LA ESV Index: 53.00 mL/m2 Aortic Valve AoV Peak Swapnil.: 1.33 m/s AO Peak Gr.: 7.08 mmHg LVOT Max P.97 mmHg LVOT Max V: 1.22 m/s NATE Vmax: 3.84 cm2 Mitral Valve MV Decel. Time: 153.84 ms MV E Max Swapnil.: 1.02 m/s [facility] [address] [address] 2 D/M-MODE ECHOCARDIOGRAM Name: ZEN LANEAnnika De León Room #: 349-I [facility] IN ..#: [id number] Admission: 12/11/17 Attend Phys: Ezra Prajapati Discharge: Date of : 83 Date of Service: 12/12/17 1226 Report #: [id number] IVRT: 62.28 ms Pulmonary Valve PV Peak Swapnil.: 1.01 m/s PV Peak Gr.: 4.09 mmHg Pulmonary Vein P Vein S: 0.49 m/s P Vein A: 0.12 m/s P Vein D: 0.77 m/s P Vein A Dur.: 83.0 msec P Vein S/D Ratio: 0.64 Tricuspid Valve TR Peak Swapnil.: 3.48 m/s RAP Estimate: 10.00 mmHg TR Peak Gr.: 48.51 mmHg PA Pressure: 58.00 mmHg Left Ventricle The left ventricle is normal size. Severe concentric left ventricular hypertrophy. The left ventricular systolic function is normal. The left ventricular ejection fraction is within the normal range. LVEF is 55-60%. Right Ventricle Right ventricle is at the upper limits of normal. The right ventricular systolic function is normal. Atria Left atrium is dilated. Right atrium is mildly dilated. Aortic Valve The aortic valve is normal in structure. Trace aortic regurgitation. There is no aortic valvular stenosis. Mitral Valve The mitral valve is normal in structure. Mild mitral regurgitation. No evidence of mitral valve stenosis. Tricuspid Valve The tricuspid valve is normal in structure. Mild tricuspid regurgitation. PAP is estimated at 58 mmHg. Pulmonic Valve The pulmonary valve is normal in structure. Mild pulmonic regurgitation. Great Vessels The aortic root is normal in size. IVC is upper limits of normal in [facility] [address] [place] [address] 2 D/M-MODE ECHOCARDIOGRAM Name: ZEN LANEL Room #: 349-I [facility] IN ..#: [id number] Admission: 12/11/17 Attend Phys: Ezra Prajapati Discharge: Date of : 83 Date of Service: 12/12/17 1226 Report #: [id number] size and collapses <50% with inspiration. Pericardium Trace circumferential pericardial effusion. No echo indications of pericardial tamponade. <Conclusion> The left ventricle is normal size. Severe concentric left ventricular hypertrophy. LVEF is 55-60%. Right ventricle is at the upper limits of normal. Left atrium is dilated. Right atrium is mildly dilated. Trace aortic regurgitation. Mild mitral regurgitation. Mild tricuspid regurgitation. PAP is estimated at 58 mmHg. The aortic root is normal in size. Trace circumferential pericardial effusion. No echo indications of pericardial tamponade. <ELECTRONICALLY SIGNED> By: Aleksey Mota MD, FACC 12/12/17 1226 122 25 Aleksey Mota MD, FACC /INF
--- NOTE | ~2017-12-11 | HC ---
[facility] [place] [address] CONSULTATION Name: [address] Room #: 349-I ADM IN .R.#: [id number] Admission: 12/11/17 Attend Phys: Anny Jackson Discharge: Date of : 83 Report #: [id number] THIS REPORT FOR: //name// CC: Frank Cervantes DATE OF SERVICE: 12/12/2017 ATTENDING PHYSICIAN: Dr. Lam. REASON FOR CONSULTATION: End-stage renal disease requiring dialysis. HISTORY OF PRESENT ILLNESS: The patient is well known to our service, status post frequent admissions to this hospital for nausea, vomiting, gastroparesis and renal failure. He was most recently admitted approximately 4 weeks ago with a very similar presentation at that time. At that time, he was hospitalized for 2-3 days. His severe gastroparesis resolved. He was discharged home. At that time, we did dialyze him here in the hospital. He again presents with very similar presentation, nausea, vomiting, chest tightness and abdominal pain, which has resolved this morning. PAST MEDICAL HISTORY: Longstanding diabetes mellitus. He has been on dialysis for the past 10 months. He has had retinopathy, severe gastroparesis, peripheral neuropathy and hypertension. FAMILY HISTORY: Positive for diabetes and hypertension. SOCIAL HISTORY: Denies cigarettes or alcohol. REVIEW OF SYSTEMS: GENERAL: He has been chronically ill with frequent episodes of nausea and vomiting. EYES: His vision is okay. ENT: Hearing okay, swallows okay. No mouth sores. ENDOCRINE: Positive for the diabetes. RESPIRATORY: No pleuritic pain or shortness of breath. No hemoptysis. CARDIAC: He had some chest discomfort, sort of atypical type chest pain. He has had pretty bad hypertension at times. GASTROINTESTINAL: Nausea and vomiting. No bloody stools. GENITOURINARY: No dysuria or hematuria. NEUROLOGIC: Peripheral neuropathy with some numbness. MUSCULOSKELETAL: Negative. SKIN: No skin rashes. ALLERGIES: REPORTEDLY TO SHRIMP. [facility] [address] [place] [address] CONSULTATION Name: [address] Sarthak Room #: [address] [place] [address] [place] [facility].#: [id number] Admission: 12/11/17 Attend Phys: Anny Jackson Discharge: Date of : 83 Report #: [id number] PHYSICAL EXAMINATION: GENERAL: Slightly ill-appearing gentleman, seen in his hospital bed. SKIN: Unremarkable. SKELETAL: Well developed, well nourished. HEENT: Extraocular movements are full. Vision intact. Hearing intact. Mucous membranes moist. NECK: Supple. CHEST: Clear to auscultation. HEART: Regular. ABDOMEN: Soft and nontender. EXTREMITIES: Show 1+ peripheral edema. NEUROLOGIC: Intact. LABORATORY DATA: Hemoglobin is 7.1. No recent iron studies are noted. Sodium 129, potassium 4.5, chloride is 93, CO2 30, creatinine 6.8, BUN 26. ASSESSMENT AND PLAN: 1. End-stage renal disease. Continue on 3 times weekly. Today is his usual dialysis day. I will order dialysis. We will dialyze him on a 3 potassium bath with a potassium of 4.5. He is still volume overloaded with some edema and hypertension despite his nausea and vomiting. So, we will engage with some ultrafiltration. His right arm fistula seems quite good, which did not have much problem with his treatments. 2. Anemia. I will check iron studies. May need erythropoietic stimulating agent. 3. Diabetes mellitus with triopathy. 4. Gastroparesis with recurrent episodes. By: [phone] Aleksey Zaldivar MD /nt
[2017-12-11 15:32] VITALS: BP 191/100
[2017-12-11 15:57] LABS: HEMATOCRIT 22.8 % (42.0-52.0); HEMOGLOBIN 8.1 gm/dL (14.0-18.0); MCH 30.7 pg (26.0-34.0); MCHC 35.7 g/dL (28.0-37.0); MCV 85.8 fL (80.0-100.0); RBC 2.65 mil/uL (4.50-6.00); RDW 15.1 % (10.5-14.5)
[2017-12-11 16:05] LABS: CALCIUM 8.3 mg/dL (8.5-10.1); POTASSIUM 4.3 mmol/L (3.5-5.1)
[2017-12-11 16:11] LABS: ALBUMIN 2.8 g/dL (3.4-5.0); TOTAL BILIRUBIN 0.5 mg/dL (<0.1-1.0); TOTAL PROTEIN 7.1 g/dL (6.4-8.2)
[2017-12-11 18:10] LABS: MAGNESIUM 1.8 mg/dL (1.8-2.4); TROPONIN-I <0.06 ng/mL (<0.06)
[2017-12-11 19:13] VITALS: BP 198/109
[2017-12-11 19:40] VITALS: BP 198/109
[2017-12-11 20:15] VITALS: BP 222/122
[2017-12-11 21:31] VITALS: BP 180/100
[2017-12-12] VITALS (8 sets, daily range): BP systolic 135–208; BP diastolic 75–120
[2017-12-12 07:34] LABS: HEMATOCRIT 20.5 % (42.0-52.0); HEMOGLOBIN 7.1 gm/dL (14.0-18.0); MCH 29.6 pg (26.0-34.0); MCHC 34.4 g/dL (28.0-37.0); RBC 2.39 mil/uL (4.50-6.00); RDW 15.1 % (10.5-14.5); WBC 4.1 thou/uL (4.0-11.0)
[2017-12-12 07:54] LABS: ANION GAP 6 mmol/L (7-16); BUN 26 mg/dL (7-18); CALCIUM 7.9 mg/dL (8.5-10.1); CHLORIDE 93 mmol/L (98-107); CHOLESTEROL 105 mg/dL (<200); CO2 30 mmol/L (21-32); CREATININE 6.8 mg/dL (0.7-1.3); GLUCOSE 206 mg/dL (74-106); HDL CHOLESTEROL 49 mg/dL (>40); LDL CHOLESTEROL 51 mg/dL (<100); POTASSIUM 4.5 mmol/L (3.5-5.1); SODIUM 129 mmol/L (136-145); TC:HDL 2.1 Ratio (Not establshd); TRIGLYCERIDE 28 mg/dL (<150); VLDL 6 mg/dL (<40)
[2017-12-12 18:11] LABS: GLYCOHEMOGLOBIN (HGB A1C) 11.3 % (4.8-5.6)
[2017-12-13 03:55] VITALS: BP 150/93
[2017-12-13 05:54] LABS: HEMATOCRIT 23.2 % (42.0-52.0); HEMOGLOBIN 7.9 gm/dL (14.0-18.0); MCHC 33.9 g/dL (28.0-37.0); MCV 88.5 fL (80.0-100.0); RBC 2.62 mil/uL (4.50-6.00); RDW 15.8 % (10.5-14.5); WBC 3.4 thou/uL (4.0-11.0)
[2017-12-13 06:18] LABS: ALBUMIN 2.6 g/dL (3.4-5.0); CALCIUM 8.1 mg/dL (8.5-10.1); PHOSPHORUS 4.2 mg/dL (2.5-4.9); POTASSIUM 5.3 mmol/L (3.5-5.1)
[2017-12-13 06:22] LABS: CREATININE 5.1 mg/dL (0.7-1.3)
[2017-12-13 07:20] VITALS: BP 175/102
[2017-12-13 10:46] VITALS: BP 135/84
[2017-12-13] MEDS ORDERED: CLONIDINE0.1 PO (13:10)
[2017-12-13] MEDS ORDERED: BYSTOLIC10 MG PO (13:10)
[2017-12-13] MEDS ORDERED: MIRALAX17 GM PO (13:11)
[2017-12-13 14:02] VITALS: BP 135/84
== END 2017-12-13 16:21 | disposition home or self-care (01) | DRG 391 ==
LOC: ER 15:31 → 3W 18:16 → EROBS 18:16 → 3W 19:50
PROVIDERS: Emergency Medicine; Hospitalist; Nurse Practitioner Family
DX: K59.03 Drug induced constipation (principal); N18.6 End stage renal disease; I12.0 Hypertensive chronic kidney disease with stage 5 chronic kidney disease or end stage renal disease; E87.1 Hypo-osmolality and hyponatremia; F11.23 Opioid dependence with withdrawal; E10.22 Type 1 diabetes mellitus with diabetic chronic kidney disease; E88.09 Other disorders of plasma-protein metabolism, not elsewhere classified; E10.319 Type 1 diabetes mellitus with unspecified diabetic retinopathy without macular edema; E10.65 Type 1 diabetes mellitus with hyperglycemia; I16.0 Hypertensive urgency; E78.00 Pure hypercholesterolemia, unspecified; I08.3 Combined rheumatic disorders of mitral, aortic and tricuspid valves; E10.43 Type 1 diabetes mellitus with diabetic autonomic (poly)neuropathy; K31.84 Gastroparesis; T40.695A Adverse effect of other narcotics, initial encounter; Y92.89 Other specified places as the place of occurrence of the external cause; Z99.2 Dependence on renal dialysis; Z87.442 Personal history of urinary calculi; Z79.4 Long term (current) use of insulin; Z79.899 Other long term (current) drug therapy; Z91.013 Allergy to seafood; Z82.49 Family history of ischemic heart disease and other diseases of the circulatory system; Z83.3 Family history of diabetes mellitus
CPT/HCPCS: 10879; 32100

== ENCOUNTER 2017-12-31 05:03 | Emergency (ER) | payer OTHER ==
[~2017-12-31] VITALS: Ht 182.9 cm; Wt 97.5 kg
--- NOTE | ~2017-12-31 | EKG ---
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 : 1985 Requested By: Goran Kwan Order Number: [id number] MD: Facundo Polanco Measurements Intervals [place] Rate: 99 P: 52 [place]: 154 QRS: -2 QRSD: 84 T: 94 QT: 379 QTc: 487 Interpretive Statements Sinus rhythm Poor R wave progression Nonspecific T wave abnormality Compared to ECG 12/11/2017 15:38:13 No significant change was found Electronically Signed On 12-31-2017 7:54:20 SHOE IRONER by Facundo Polanco [email or web address] <ELECTRONICALLY SIGNED> By: Facundo Polanco MD, [facility] 12/31/17 0754 D: 11/599 06 Facundo Polanco MD, FACC /EPI
[~2017-12-31 05:03] MED LIST changes: +BYSTOLIC10 MG PO; +MIRALAX17 GM PO
[2017-12-31 06:31] LABS: ABSOLUTE NEUTROPHILS 3.5 thou/uL (1.4-8.2); BASOPHILS 0.3 % (0.0-2.0); EOSINOPHILS 2.3 % (0.0-3.0); HEMATOCRIT 23.8 % (42.0-52.0); HEMOGLOBIN 8.5 gm/dL (14.0-18.0); LYMPHOCYTES 19.9 % (24.0-44.0); MCH 30.3 pg (26.0-34.0); MCHC 35.7 g/dL (28.0-37.0); MCV 84.8 fL (80.0-100.0); PLATELET COUNT 196 thou/uL (150-400); POLYS 72.5 % (36.0-66.0); RBC 2.81 mil/uL (4.50-6.00); RDW 14.8 % (10.5-14.5); WBC 4.9 thou/uL (4.0-11.0)
[2017-12-31 06:48] LABS: ANION GAP 5 mmol/L (7-16); BUN 33 mg/dL (7-18); CALCIUM 8.3 mg/dL (8.5-10.1); CHLORIDE 91 mmol/L (98-107); CO2 33 mmol/L (21-32); CREATININE 7.4 mg/dL (0.7-1.3); GLUCOSE 392 mg/dL (74-106); SODIUM 129 mmol/L (136-145)
[2017-12-31 06:56] LABS: ALBUMIN 2.8 g/dL (3.4-5.0); LIPASE 222 U/L (73-393); SGOT 20 U/L (15-37); SGPT 27 U/L (30-65); TOTAL BILIRUBIN 0.5 mg/dL (<0.1-1.0); TOTAL PROTEIN 6.9 g/dL (6.4-8.2); TROPONIN-I <0.06 ng/mL (<0.06)
[2017-12-31 09:20] VITALS: BP 186/99
== END 2017-12-31 09:20 | disposition home or self-care (01) ==
LOC: ER 05:03
PROVIDERS: Emergency Medicine
DX: R10.84 Generalized abdominal pain (principal); R11.2 Nausea with vomiting, unspecified; E10.22 Type 1 diabetes mellitus with diabetic chronic kidney disease; I12.0 Hypertensive chronic kidney disease with stage 5 chronic kidney disease or end stage renal disease; N18.6 End stage renal disease; E10.43 Type 1 diabetes mellitus with diabetic autonomic (poly)neuropathy; K31.84 Gastroparesis; E78.5 Hyperlipidemia, unspecified; Z99.2 Dependence on renal dialysis; Z91.018 Allergy to other foods; Z91.013 Allergy to seafood

== ENCOUNTER 2018-01-22 19:03 | Emergency (ER) | payer OTHER ==
[~2018-01-22] VITALS: Ht 198.1 cm; Wt 97.5 kg
[2018-01-22 21:08] LABS: ABSOLUTE NEUTROPHILS 2.9 thou/uL (1.4-8.2)
[2018-01-22 21:09] LABS: BASOPHILS 1.1 % (0.0-2.0); EOSINOPHILS 1.9 % (0.0-3.0); HEMOGLOBIN 6.8 gm/dL (14.0-18.0); LYMPHOCYTES 21.5 % (24.0-44.0); MCH 30.5 pg (26.0-34.0); MCHC 35.3 g/dL (28.0-37.0); MCV 86.4 fL (80.0-100.0); MONOCYTES 5.2 % (1.0-8.0); PLATELET COUNT 176 thou/uL (150-400); POLYS 70.3 % (36.0-66.0); RBC 2.24 mil/uL (4.50-6.00); RDW 14.7 % (10.5-14.5); WBC 4.2 thou/uL (4.0-11.0)
[2018-01-22 21:20] LABS: CALCIUM 8.9 mg/dL (8.5-10.1); CREATININE 5.9 mg/dL (0.7-1.3); POTASSIUM 5.1 mmol/L (3.5-5.1)
[2018-01-22 21:21] LABS: HEMATOCRIT 19.3 % (42.0-52.0)
[2018-01-22 21:25] LABS: ALBUMIN 2.9 g/dL (3.4-5.0); TOTAL BILIRUBIN 0.5 mg/dL (<0.1-1.0); TOTAL PROTEIN 6.8 g/dL (6.4-8.2)
[2018-01-22 22:33] LABS: URINE BILIRUBIN NEGATIVE (Negative); URINE BLOOD 2+ (Negative); URINE CLARITY CLEAR; URINE COLOR YELLOW; URINE GLUCOSE-RANDOM* 3+ (Negative); URINE KETONES NEGATIVE (Negative); URINE LEUKOCYTES-REFLEX NEGATIVE (Negative); URINE NITRITE-REFLEX NEGATIVE (Negative); URINE PROTEIN (DIPSTICK) 3+ (Negative); URINE UROBILINOGEN 0.2 E.U./dl (0.2-1.0)
[2018-01-22 22:55] LABS: CASTS None Seen /LPF (None Seen); MUCUS None Seen strn/LPF (None Seen); SQUAMOUS None Seen /LPF (0-3); URINE WBC-REFLEX None Seen /HPF (0-5)
[2018-01-22 22:56] LABS: BACTERIA-REFLEX None Seen /HPF (None Seen); CRYSTALS None Seen /LPF (None Seen)
[2018-01-22] MEDS ORDERED: MIRALAX17 GM PO (23:01)
[2018-01-22] MEDS ORDERED: PHENERGAN 25 MG25 M1 PO (23:01)
[2018-01-22 23:15] VITALS: BP 164/89
== END 2018-01-22 23:30 | disposition home or self-care (01) ==
LOC: ER 19:03
PROVIDERS: Emergency Medicine
DX: R10.817 Generalized abdominal tenderness (principal); R11.2 Nausea with vomiting, unspecified; E78.5 Hyperlipidemia, unspecified; E10.22 Type 1 diabetes mellitus with diabetic chronic kidney disease; I12.0 Hypertensive chronic kidney disease with stage 5 chronic kidney disease or end stage renal disease; N18.6 End stage renal disease; E10.43 Type 1 diabetes mellitus with diabetic autonomic (poly)neuropathy; Z91.013 Allergy to seafood

== ENCOUNTER 2018-02-01 17:30 | Emergency (ER) | payer OTHER ==
[~2018-02-01] VITALS: Ht 182.9 cm; Wt 90.7 kg
--- NOTE | ~2018-02-01 | EKG ---
[address] [address] ELECTROCARDIOGRAM REPORT Name: ZEN LANEL Sarthak Room #: [facility]#: [id number] Admission: 02/01/18 Attend Phys: Discharge: 02/01/18 Date of : 83 Report #: [id number] THIS REPORT FOR: //name// [facility] ED Test Date: 2018-02-01 Test Time: 17:35:54 Pat Name: MONET LANE Department: Room: Gender: M Sap Administrator: ALFREDO : 1985 Requested By: Albaro [place] Order Number: [id number] MD: Facundo Polanco Measurements Intervals [place] Rate: 106 P: 54 [place]: 145 QRS: -9 QRSD: 83 T: 94 QT: 348 QTc: 463 Interpretive Statements Sinus tachycardia RSR' in V1 or V2, probably normal variant Nonspecific T abnormalities, lateral leads Compared to ECG 12/31/2017 06:00:44 No significant change was found Electronically Signed On 02-02-2018 8:53:52 DISPLAYER MERCHANDISE by Facundo Polanco [email or web address] <ELECTRONICALLY SIGNED> By: Facundo Polanco MD, [facility] 02/02/18 0853 1735 1735 Facundo Polanco MD, [facility] /EPI
[2018-02-01 18:04] LABS: ABSOLUTE NEUTROPHILS 4.3 thou/uL (1.4-8.2); BASOPHILS 0.6 % (0.0-2.0); EOSINOPHILS 1.6 % (0.0-3.0); HEMATOCRIT 24.8 % (42.0-52.0); HEMOGLOBIN 8.8 gm/dL (14.0-18.0); LYMPHOCYTES 19.1 % (24.0-44.0); MCH 30.5 pg (26.0-34.0); MCHC 35.5 g/dL (28.0-37.0); MONOCYTES 4.5 % (1.0-8.0); PLATELET COUNT 170 thou/uL (150-400); POLYS 74.2 % (36.0-66.0); RBC 2.88 mil/uL (4.50-6.00); WBC 5.8 thou/uL (4.0-11.0)
[2018-02-01 18:08] LABS: CALCIUM 9.3 mg/dL (8.5-10.1); CREATININE 7.3 mg/dL (0.7-1.3); POTASSIUM 4.5 mmol/L (3.5-5.1)
[2018-02-01 18:13] LABS: ALBUMIN 3.2 g/dL (3.4-5.0); TOTAL BILIRUBIN 0.6 mg/dL (<0.1-1.0); TOTAL PROTEIN 7.3 g/dL (6.4-8.2)
[2018-02-01] MEDS ORDERED: PHENERGAN 25 MG25 M1 PO (20:11)
[2018-02-01 23:09] VITALS: BP 180/97
== END 2018-02-01 23:30 | disposition home or self-care (01) ==
LOC: ER 17:30
PROVIDERS: Physician Assistant
DX: R10.84 Generalized abdominal pain (principal); I10 Essential (primary) hypertension; E78.5 Hyperlipidemia, unspecified; E10.22 Type 1 diabetes mellitus with diabetic chronic kidney disease; N18.6 End stage renal disease; E10.43 Type 1 diabetes mellitus with diabetic autonomic (poly)neuropathy; K31.84 Gastroparesis; Z91.013 Allergy to seafood

== ENCOUNTER 2018-02-10 08:38 | Inpatient (IN) | payer OTHER ==
[~2018-02-10] VITALS: Ht 182.9 cm; Wt 97.5 kg
[2018-02-10] VITALS (7 sets, daily range): BP systolic 137–198; BP diastolic 72–111
--- NOTE | ~2018-02-10 | EKG ---
[address] [address] ELECTROCARDIOGRAM REPORT Name: MONET LANE Room #: 211-P ADM IN M.R.#: [id number] Admission: 02/10/18 Attend Phys: Billy Navarrete MD Discharge: Date of : 83 Report #: [id number] THIS REPORT FOR: //name// [facility] ED Test Date: 2018-02-10 Test Time: 08:42:20 Pat Name: MONET LANE Department: Room: 211 Gender: M Consumer Loan Manager: MAGGIE : 1985 Requested By: Donnie Johnson Order Number: [id number] MD: Zach Altman Measurements Intervals [place] Rate: 93 P: 41 [place]: 172 QRS: 12 QRSD: 86 T: 107 QT: 367 QTc: 457 Interpretive Statements Sinus rhythm Probable left atrial enlargement Compared to ECG 02/01/2018 17:35:54 Sinus tachycardia no longer present Electronically Signed On 02-11-2018 8:40:51 ERRAND RUNNER by Zach Altman [email or web address] <ELECTRONICALLY SIGNED> By: Zach Altman MD 02/11/18 0840 1 Zach Altman MD /ANANDA
--- NOTE | ~2018-02-10 | HC ---
[facility] [place] [address] CONSULTATION Name: MONET L[address] JR Room #: 211-P [facility] IN M.R.#: [id number] Admission: 02/10/18 Attend Phys: Billy Navarrete MD Discharge: Date of : 83 Report #: [id number] THIS REPORT FOR: //name// CC: FAM unknown Billy Navarrete DATE OF SERVICE: 02/11/2018 REASON FOR THE CONSULTATION: End-stage renal disease. REASON FOR PRESENTATION: Nausea, vomiting and abdominal pain. HISTORY OF PRESENT ILLNESS: This is a very well-known patient to me from previous admissions. He has end-stage renal disease, maintained on hemodialysis every Friday, Friday and Friday. He suffered from longstanding diabetes mellitus and hypertension with complications related to that including gastroparesis demanding numerous and repeated admissions. He presented with the same symptoms, reports that he was not able to eat or drink in the last 24 hours with associated epigastric abdominal pain. He also had persistent vomiting. He was admitted for further evaluation and management. I am being consulted to manage his end-stage renal disease. PAST MEDICAL HISTORY: 1. Longstanding hypertension. 2. Diabetes mellitus with all of its complications including diabetic retinopathy and diabetic gastroparesis. 3. Hypertension with extreme blood pressure readings most of the time. 4. AV fistula. ALLERGIES: None. MEDICATIONS: Reviewed. FAMILY HISTORY: Significant for diabetes mellitus and hypertension. REVIEW OF SYSTEMS: GENERAL: Significant for weakness. CARDIOVASCULAR: Significant for chest pain. PULMONARY: No cough or hemoptysis. GASTROINTESTINAL: As per the history of present illness. MUSCULOSKELETAL: No myalgias, no back pain. PHYSICAL EXAMINATION: GENERAL: He is alert, oriented. VITAL SIGNS: Blood pressure was 190/100, pulse rate was 75. HEAD AND NECK: No jugular venous distention. [facility] [address] [place] [address] CONSULTATION Name: MONET LANE Room #: 211-P [facility] IN [facility]#: [id number] Admission: 02/10/18 Attend Phys: Billy Navarrete MD Discharge: Date of : 83 Report #: [id number] CHEST: Decreased air entry bilaterally. CARDIOVASCULAR: No rubs detected. ABDOMEN: Soft, with slight epigastric tenderness. No guarding, no rebound, no rigidity. LOWER EXTREMITIES: No edema. LABORATORY DATA: Reviewed. Potassium was mildly elevated at 5.2. ASSESSMENT, IMPRESSION AND PLAN: 1. End-stage renal disease. 2. Diabetes mellitus. 3. Hypertension, out of control. 4. Diabetic gastroparesis. 5. The patient is being admitted to monitor his symptoms and treat symptomatically as on previous admissions. 6. I will arrange for the patient to have his usual hemodialysis on a Friday, Friday, Friday schedule. Continue to address his GI symptoms with appropriate medications for his gastroparesis. By: [phone] Silver Fisher MD /nt
[2018-02-10 09:57] LABS: ABSOLUTE NEUTROPHILS 4.3 thou/uL (1.4-8.2); BASOPHILS 0.7 % (0.0-2.0); EOSINOPHILS 0.7 % (0.0-3.0); HEMATOCRIT 23.2 % (42.0-52.0); LYMPHOCYTES 17.7 % (24.0-44.0); MCH 29.9 pg (26.0-34.0); MCHC 34.5 g/dL (28.0-37.0); MCV 86.6 fL (80.0-100.0); MONOCYTES 3.3 % (1.0-8.0); PLATELET COUNT 172 thou/uL (150-400); POLYS 77.6 % (36.0-66.0); RBC 2.68 mil/uL (4.50-6.00); RDW 13.6 % (10.5-14.5); WBC 5.6 thou/uL (4.0-11.0)
[2018-02-10 10:19] LABS: ANION GAP 5 mmol/L (7-16); BUN 34 mg/dL (7-18); CALCIUM 8.6 mg/dL (8.5-10.1); CHLORIDE 92 mmol/L (98-107); CO2 33 mmol/L (21-32); CREATININE 6.7 mg/dL (0.7-1.3); GLUCOSE 318 mg/dL (74-106); POTASSIUM 5.2 mmol/L (3.5-5.1); SODIUM 130 mmol/L (136-145)
[2018-02-10 10:26] LABS: LIPASE 344 U/L (73-393); SGOT 33 U/L (15-37); SGPT 56 U/L (30-65); TOTAL BILIRUBIN 0.5 mg/dL (<0.1-1.0); TOTAL PROTEIN 6.8 g/dL (6.4-8.2); TROPONIN-I <0.06 ng/mL (<0.06)
[2018-02-11 04:21] LABS: ANION GAP 5 mmol/L (7-16); BUN 44 mg/dL (7-18); CALCIUM 8.4 mg/dL (8.5-10.1); CHLORIDE 96 mmol/L (98-107); CHOLESTEROL 90 mg/dL (<200); CO2 30 mmol/L (21-32); GLUCOSE 160 mg/dL (74-106); HDL CHOLESTEROL 48 mg/dL (>40); LDL CHOLESTEROL 36 mg/dL (<100); POTASSIUM 5.5 mmol/L (3.5-5.1); SODIUM 131 mmol/L (136-145); TC:HDL 1.9 Ratio (Not establshd); TRIGLYCERIDE 32 mg/dL (<150); VLDL 6 mg/dL (<40)
[2018-02-11 04:22] LABS: CREATININE 8.1 mg/dL (0.7-1.3); SERUM ASSESSMENT Clear
[2018-02-11 04:57] VITALS: BP 147/79
[2018-02-11 05:07] LABS: HEMATOCRIT 21.7 % (42.0-52.0); HEMOGLOBIN 7.7 gm/dL (14.0-18.0); MCH 30.7 pg (26.0-34.0); MCHC 35.3 g/dL (28.0-37.0); RBC 2.49 mil/uL (4.50-6.00); RDW 13.9 % (10.5-14.5); WBC 3.7 thou/uL (4.0-11.0)
[2018-02-11 07:10] VITALS: BP 153/45
[2018-02-11 11:10] VITALS: BP 154/96
[2018-02-11] MEDS ORDERED: LEVEMIR SUBQ ×2 (12:29→15:38)
[2018-02-11 15:15] VITALS: BP 175/102
[2018-02-11 17:43] VITALS: BP 175/102
[2018-02-11 23:06] LABS: HEPATITIS B SURFACE AG Negative (Negative)
== END 2018-02-11 18:16 | disposition home or self-care (01) | DRG 304 ==
LOC: ER 08:38 → EROBS 10:52 → 2N 10:52
PROVIDERS: Emergency Medicine; Hospitalist; Internal Medicine Nephrology
PROC: B543ZZA Ultrasonography of Right Jugular Veins, Guidance (ICD-10-PCS; 2018-02-10)
PROC: 05HM33Z Insertion of Infusion Device into Right Internal Jugular Vein, Percutaneous Approach (ICD-10-PCS; 2018-02-10)
PROC: 5A1D70Z Performance of Urinary Filtration, Intermittent, Less than 6 Hours Per Day (ICD-10-PCS; principal; 2018-02-11)
DX: I16.0 Hypertensive urgency (principal); I12.0 Hypertensive chronic kidney disease with stage 5 chronic kidney disease or end stage renal disease; N18.6 End stage renal disease; E10.43 Type 1 diabetes mellitus with diabetic autonomic (poly)neuropathy; K59.03 Drug induced constipation; K31.84 Gastroparesis; T40.605A Adverse effect of unspecified narcotics, initial encounter; E10.22 Type 1 diabetes mellitus with diabetic chronic kidney disease; E78.00 Pure hypercholesterolemia, unspecified; E10.65 Type 1 diabetes mellitus with hyperglycemia; E78.5 Hyperlipidemia, unspecified; Z99.2 Dependence on renal dialysis; Z91.013 Allergy to seafood; Z82.49 Family history of ischemic heart disease and other diseases of the circulatory system; Z83.3 Family history of diabetes mellitus; Y92.89 Other specified places as the place of occurrence of the external cause; Z87.442 Personal history of urinary calculi
CPT/HCPCS: 10081; 32100

== ENCOUNTER 2018-02-18 23:18 | Emergency (ER) | payer OTHER ==
[~2018-02-18] VITALS: Ht 182.9 cm; Wt 95.3 kg
[~2018-02-18 23:18] MED LIST changes: +LEVEMIR SUBQ
[2018-02-19 00:01] LABS: ABSOLUTE NEUTROPHILS 4.3 thou/uL (1.4-8.2); BASOPHILS 1.2 % (0.0-2.0); EOSINOPHILS 1.2 % (0.0-3.0); HEMATOCRIT 29.5 % (42.0-52.0); HEMOGLOBIN 10.5 gm/dL (14.0-18.0); LYMPHOCYTES 13.3 % (24.0-44.0); MCH 30.7 pg (26.0-34.0); MCHC 35.6 g/dL (28.0-37.0); MCV 86.2 fL (80.0-100.0); PLATELET COUNT 180 thou/uL (150-400); POLYS 79.3 % (36.0-66.0); RBC 3.42 mil/uL (4.50-6.00); RDW 14.7 % (10.5-14.5); WBC 5.4 thou/uL (4.0-11.0)
[2018-02-19 00:09] LABS: CALCIUM 8.1 mg/dL (8.5-10.1); CREATININE 5.8 mg/dL (0.7-1.3); POTASSIUM 4.3 mmol/L (3.5-5.1)
[2018-02-19 00:15] LABS: DIRECT BILIRUBIN 0.2 mg/dL (<0.1-0.3); TOTAL BILIRUBIN 0.7 mg/dL (<0.1-1.0); TOTAL PROTEIN 7.4 g/dL (6.4-8.2)
[2018-02-19 02:03] LABS: URINE BILIRUBIN NEGATIVE (Negative); URINE BLOOD 2+ (Negative); URINE CLARITY CLEAR; URINE COLOR YELLOW; URINE GLUCOSE-RANDOM* 3+ (Negative); URINE KETONES NEGATIVE (Negative); URINE PROTEIN (DIPSTICK) 3+ (Negative)
[2018-02-19 02:04] LABS: URINE LEUKOCYTES-REFLEX NEGATIVE (Negative); URINE NITRITE-REFLEX NEGATIVE (Negative); URINE UROBILINOGEN 0.2 E.U./dl (0.2-1.0)
[2018-02-19 02:14] LABS: SQUAMOUS 0-3 Few /LPF (0-3)
[2018-02-19 02:24] LABS: BACTERIA-REFLEX None Seen /HPF (None Seen); CASTS None Seen /LPF (None Seen); CRYSTALS None Seen /LPF (None Seen); MUCUS None Seen strn/LPF (None Seen); URINE RBC 3-10 Few /HPF (0-2); URINE WBC-REFLEX 0-5 Rare /HPF (0-5)
[2018-02-19] MEDS ORDERED: ONDANSETRON HCL4 M2 PO (03:04)
[2018-02-19 03:14] VITALS: BP 179/94
--- NOTE | 2018-02-19 08:30 | EKG ---
[place] [address] [facility] [place] [address] ELECTROCARDIOGRAM REPORT Name: LANEMONET Room #: DEP [facility]#: [id number] Admission: 02/18/18 Attend Phys: Discharge: 02/19/18 Date of : 83 Report #: [id number] THIS REPORT FOR: //name// [facility] ED Test Date: 2018-02-19 Test Time: 00:14:45 Pat Name: MONET LANE Department: Room: Gender: M Sales Marketing Director: eileen : 1985 Requested By: Park Conroy Order Number: [id number] MD: Facundo Polanco Measurements Intervals [place] Rate: 101 P: 36 [place]: 150 QRS: -16 QRSD: 91 T: 125 QT: 369 QTc: 479 Interpretive Statements Sinus tachycardia Borderline left axis deviation Poor R wave progression Abnormal T, consider ischemia, lateral leads Compared to ECG 02/10/2018 08:42:20 No significant change was found Electronically Signed On 02-19-2018 8:30:13 SHOESHINER by Facundo Polanco [email or web address] <ELECTRONICALLY SIGNED> By: Facundo Polanco MD, [facility] 02/19/18 0830 0014 0014 Facundo Polanco MD, [facility] /EPI
== END 2018-02-19 03:24 | disposition home or self-care (01) ==
LOC: ER 23:18
PROVIDERS: Student in an Organized Health Care Education/Training Program
DX: R11.2 Nausea with vomiting, unspecified (principal); Z76.5 Malingerer [conscious simulation]; I12.0 Hypertensive chronic kidney disease with stage 5 chronic kidney disease or end stage renal disease; E10.22 Type 1 diabetes mellitus with diabetic chronic kidney disease; N18.6 End stage renal disease; E78.5 Hyperlipidemia, unspecified; K31.84 Gastroparesis; Z91.013 Allergy to seafood; Z99.2 Dependence on renal dialysis

== ENCOUNTER 2018-03-14 09:24 | Emergency (ER) | payer OTHER ==
[~2018-03-14] VITALS: Ht 182.9 cm; Wt 95.3 kg
[2018-03-14 09:59] LABS: ABSOLUTE NEUTROPHILS 2.2 thou/uL (1.4-8.2); BASOPHILS 0.8 % (0.0-2.0); HEMOGLOBIN 8.5 gm/dL (14.0-18.0); LYMPHOCYTES 23.3 % (24.0-44.0); MCH 31.5 pg (26.0-34.0); MCHC 35.4 g/dL (28.0-37.0); MCV 88.9 fL (80.0-100.0); MONOCYTES 9.8 % (1.0-8.0); PLATELET COUNT 167 thou/uL (150-400); POLYS 64.1 % (36.0-66.0); RDW 15.2 % (10.5-14.5); WBC 3.5 thou/uL (4.0-11.0)
[2018-03-14 10:06] LABS: CALCIUM 8.5 mg/dL (8.5-10.1); CREATININE 5.6 mg/dL (0.7-1.3); POTASSIUM 4.3 mmol/L (3.5-5.1)
[2018-03-14 10:12] LABS: ALBUMIN 3.1 g/dL (3.4-5.0); TOTAL BILIRUBIN 0.5 mg/dL (<0.1-1.0); TOTAL PROTEIN 7.1 g/dL (6.4-8.2)
[2018-03-14] MEDS ORDERED: PHENERGAN 25 MG25 M1 PO (11:42)
[2018-03-14 11:59] VITALS: BP 200/111
== END 2018-03-14 12:00 | disposition home or self-care (01) ==
LOC: ER 09:24
PROVIDERS: Emergency Medicine
DX: E10.65 Type 1 diabetes mellitus with hyperglycemia (principal); R11.2 Nausea with vomiting, unspecified; E78.5 Hyperlipidemia, unspecified; E10.43 Type 1 diabetes mellitus with diabetic autonomic (poly)neuropathy; K31.84 Gastroparesis; I12.0 Hypertensive chronic kidney disease with stage 5 chronic kidney disease or end stage renal disease; E10.22 Type 1 diabetes mellitus with diabetic chronic kidney disease; N18.6 End stage renal disease; K86.1 Other chronic pancreatitis; Z99.2 Dependence on renal dialysis; Z91.013 Allergy to seafood

== ENCOUNTER 2018-03-29 16:08 | Inpatient (IN) | payer OTHER ==
[~2018-03-29] VITALS: Ht 188 cm; Wt 90.3 kg
[2018-03-29 16:11] VITALS: BP 200/110
--- NOTE | 2018-03-29 16:40 | NUR ---
LABS OBTAINED PER DR. JONES.
[2018-03-29 16:56] LABS: ABSOLUTE NEUTROPHILS 4.3 thou/uL (1.4-8.2); BASOPHILS 0.6 % (0.0-2.0); EOSINOPHILS 1.1 % (0.0-3.0); HEMATOCRIT 21.3 % (42.0-52.0); HEMOGLOBIN 7.3 gm/dL (14.0-18.0); MCH 31.1 pg (26.0-34.0); MCHC 34.5 g/dL (28.0-37.0); MCV 90.2 fL (80.0-100.0); MONOCYTES 7.4 % (1.0-8.0); PLATELET COUNT 190 thou/uL (150-400); POLYS 75.9 % (36.0-66.0); RBC 2.36 mil/uL (4.50-6.00); RDW 16.2 % (10.5-14.5); WBC 5.6 thou/uL (4.0-11.0)
[2018-03-29 17:10] LABS: CALCIUM 9.4 mg/dL (8.5-10.1); CREATININE 7.6 mg/dL (0.7-1.3)
[2018-03-29 17:14] LABS: POTASSIUM 6.6 mmol/L (3.5-5.1)
[2018-03-29 17:15] LABS: ALBUMIN 3.2 g/dL (3.4-5.0); TOTAL BILIRUBIN 0.5 mg/dL (<0.1-1.0); TOTAL PROTEIN 7.4 g/dL (6.4-8.2)
--- NOTE | 2018-03-29 17:52 | NUR ---
STILL UNABLE TO ESTABLISH IV ACCESS. NUMEROUS CALLS PLACED TO IV TEAM, NO RESPONSE. PAGED AGAIN. DR JONES AWARE.
--- NOTE | 2018-03-29 18:20 | NUR ---
IV NURSE AT BEDSIDE, LINE PLACED TO KEVIN
[2018-03-29 19:48] VITALS: BP 191/93
[2018-03-29 19:53] VITALS: BP 191/93
[2018-03-29] MEDS ORDERED: CARVEDILOL12.5 MG PO (23:40)
[2018-03-30 02:48] LABS: CALCIUM 8.9 mg/dL (8.5-10.1); CREATININE 8.3 mg/dL (0.7-1.3); MAGNESIUM 2.8 mg/dL (1.8-2.4)
[2018-03-30 03:00] LABS: POTASSIUM 5.5 mmol/L (3.5-5.1)
[2018-03-30 03:27] VITALS: BP 170/90
--- NOTE | 2018-03-30 05:18 | NUR ---
Received pt from ED. Pt has been having abd pain, N/V which started today. Pt had not taken his insulin and BP medication so BP was 200/100 upon arrival. Blood sugar was in the 200s. Called OFFICE RECEPTIONIST she approved clonidine and fentanyl. Pt hasnt had any episode of N/V. His right foot is swollen. His been feeling itchy but he stated he always feel like that before dialysis. He has a right upper arm fistula. Up at andres. Left upper arm IV. His SR on TELE. No identified needs at the moment. Call light within reach. Will continue to monitor.
--- NOTE | 2018-03-30 08:23 | EKG ---
[address] [place] [address] ELECTROCARDIOGRAM REPORT Name: MONET LANE Room #: 455-P ADM IN M.R.#: [id number] Admission: 03/29/18 Attend Phys: Rich Arellano MD Discharge: Date of : 83 Report #: [id number] THIS REPORT FOR: //name// [facility] ED Test Date: 2018-03-29 Test Time: 17:55:26 Pat Name: MONET LANE Department: Room: [facility] Gender: M Cow Buyer: at : 1985 Requested By: Donnie Johnson Order Number: [id number] MD: Facundo Polanco Measurements Intervals [place] Rate: 99 P: 53 [place]: 177 QRS: -8 QRSD: 92 T: 83 QT: 359 QTc: 461 Interpretive Statements Sinus rhythm Poor R wave progression Compared to ECG 02/19/2018 00:14:45 no significant change was found Electronically Signed On 03-30-2018 8:23:38 CASH REGISTER BALANCER by Facundo Polanco [email or web address] <ELECTRONICALLY SIGNED> By: Facundo Polanco MD, [facility] 03/30/18 08 54 54 Facundo Polanco MD, [facility] /EPI
[2018-03-30] MEDS ORDERED: BENTYL 10 MG CA10 MG PO (09:04)
--- NOTE | 2018-03-30 10:38 | NUR ---
Assess due to RD consult received. Pt with correction hx dm, ESRD/dialysis. Also hx gastroparesis and admitted with cyclic vomiting. Currently on clear liquids and stated tolerated. BG 166. Pt reports usual wt around 202 lb (92kg) and admit wt 199 lb. On reglan. Await for timely diet advance, otherwise low nutrition risk.
[2018-03-30 12:11] VITALS: BP 183/84
[2018-03-30 13:32] VITALS: BP 183/84
--- NOTE | 2018-03-30 13:43 | NUR ---
pt stable throughout shift. pt had dialysis which he tolerated well. pt discharged home, left unit via wheelchair to cab.
--- NOTE | 2018-04-03 09:22 | HC ---
[facility] [place] [address] CONSULTATION Name: MONET L[address] Room #: 455-P [facility] IN M.R.#: [id number] Admission: 03/29/18 Attend Phys: Rich Arellano MD Discharge: 03/30/18 Date of : 83 Report #: [id number] THIS REPORT FOR: //name// CC: Rich BOBO unknown DATE OF SERVICE: 03/30/2018 NEPHROLOGY CONSULTATION REASON FOR CONSULTATION: End-stage renal disease and hyperkalemia. HISTORY OF PRESENT ILLNESS: The patient is well known to our service due to numerous and repeated admissions at this hospital, usually for nausea and vomiting. He is a chronic dialysis patient dialyzing Friday, Friday and Friday at [facility] in [place]. He presents at this time with nausea, vomiting, abdominal and chest pain. Of note, at virtually every visit to the Emergency Room, which are numerous, the patient does receive IV morphine and IV fentanyl, which he is currently receiving. PAST MEDICAL HISTORY: Hypertension, end-stage renal disease, diabetes, apparently has a history of retinopathy and gastroparesis according to the old charts and he has got severe hypertension. PAST SURGICAL HISTORY: Have included an AV fistula in his right arm. Of note, he did have a negative cardiac nuclear stress test about a month and a half ago. ALLERGIES: None reported. MEDICATIONS: Are reviewed. FAMILY HISTORY: Positive for diabetes and hypertension. REVIEW OF SYSTEMS: GENERAL: He says he has been feeling reasonably well, but now, with the nausea, vomiting, chest and abdominal pain, not short of air. EYES: His vision is reasonably good. ENT: He swallows okay. Denies mouth sores. ENDOCRINE: Positive for the diabetes. RESPIRATORY: He is not short of breath. CARDIOVASCULAR: He is having nonspecific chest pains. He has had negative workup in the past. GASTROINTESTINAL: He has some nausea and vomiting and does carry a diagnosis of gastroparesis. GENITOURINARY: No dysuria or hematuria. NEUROLOGIC: He has got some numbness in his feet. [facility] [address] [place] [address] CONSULTATION Name: MONET LANE Room #: 455-P [facility] IN ..#: [id number] Admission: 03/29/18 Attend Phys: Rich Arellano MD Discharge: 03/30/18 Date of : 83 Report #: [id number] PHYSICAL EXAMINATION: GENERAL: This is a reasonably well-appearing gentleman with somewhat flat affect. EYES: Vision is okay. HEENT: Extraocular movements are full. No scleral icterus. Hearing okay. Mucous membranes moist. Tongue, buccal mucosa benign. NECK: Supple, no carotid bruits. CHEST: Clear to auscultation. HEART: Regular. ABDOMEN: Soft and nontender. EXTREMITIES: Right AV fistula looks okay. No peripheral edema. LABORATORY DATA: Potassium, which was 6.6 yesterday, is 5.5 today. Sodium 132, the creatinine is 8.3, BUN 70. White count 5.6, hemoglobin is only 7.3. ASSESSMENT AND PLAN: 1. End-stage renal disease, on dialysis currently. 2. Hyperkalemia, on a 2K bath to remove potassium. 3. Anemia. I will order some Procrit and we will check some iron studies. 4. Nausea and vomiting, unknown etiology, possible gastroparesis. 5. Chest and abdominal pain, these are nonspecific. He usually demands and requires IV narcotics for these issues and as to whether that is indicated or not is a difficult question. 6. Diabetes mellitus with retinopathy, end-stage renal disease. 7. Hypertension related to his renal disease. <ELECTRONICALLY SIGNED> By: Aleksey Zaldivar MD 04/03/18 0922 0906 1756 Aleksey Zaldivar MD /nt
== END 2018-03-30 13:45 | disposition home or self-care (01) | DRG 640 ==
LOC: ER 16:08 → 4W 19:39 → EROBS 19:39 → 4W 19:54
PROVIDERS: Emergency Medicine; Nurse Practitioner Acute Care; ADMIT Hospitalist
PROC: 5A1D70Z Performance of Urinary Filtration, Intermittent, Less than 6 Hours Per Day (ICD-10-PCS; principal; 2018-03-30)
DX: E87.5 Hyperkalemia (principal); N18.6 End stage renal disease; I12.0 Hypertensive chronic kidney disease with stage 5 chronic kidney disease or end stage renal disease; R11.2 Nausea with vomiting, unspecified; E10.43 Type 1 diabetes mellitus with diabetic autonomic (poly)neuropathy; R10.9 Unspecified abdominal pain; E10.319 Type 1 diabetes mellitus with unspecified diabetic retinopathy without macular edema; D64.9 Anemia, unspecified; E10.22 Type 1 diabetes mellitus with diabetic chronic kidney disease; E78.5 Hyperlipidemia, unspecified; Z99.2 Dependence on renal dialysis; Z91.013 Allergy to seafood; Z83.3 Family history of diabetes mellitus; Z82.49 Family history of ischemic heart disease and other diseases of the circulatory system; Z87.891 Personal history of nicotine dependence
CPT/HCPCS: 10045; 32100

== ENCOUNTER 2018-04-02 21:16 | Emergency (ER) | payer OTHER ==
[~2018-04-02] VITALS: Ht 182.9 cm; Wt 99.8 kg
[~2018-04-02 21:16] MED LIST changes: +BENTYL 10 MG CA10 MG PO
[2018-04-02 21:53] LABS: HEMOGLOBIN 6.9 gm/dL (14.0-18.0); MCV 90.8 fL (80.0-100.0); WBC 4.1 thou/uL (4.0-11.0)
[2018-04-02 21:54] LABS: ABSOLUTE NEUTROPHILS 2.9 thou/uL (1.4-8.2); BASOPHILS 0.9 % (0.0-2.0); EOSINOPHILS 1.6 % (0.0-3.0); LYMPHOCYTES 18.6 % (24.0-44.0); MCH 31.2 pg (26.0-34.0); MCHC 34.3 g/dL (28.0-37.0); MONOCYTES 6.7 % (1.0-8.0); PLATELET COUNT 160 thou/uL (150-400); POLYS 72.2 % (36.0-66.0); RDW 15.7 % (10.5-14.5)
[2018-04-02 21:56] LABS: BE(vivo) 5.9 mmol/L (-2 to +3); PCO2 VENOUS 41.9 mmHg (41.0-51.0); PO2 VENOUS 38.2 mmHg (35.0-45.0)
[2018-04-02 22:04] LABS: CALCIUM 7.9 mg/dL (8.5-10.1); CREATININE 6.8 mg/dL (0.7-1.3); POTASSIUM 4.9 mmol/L (3.5-5.1)
[2018-04-02 22:09] LABS: DIRECT BILIRUBIN 0.2 mg/dL (<0.1-0.3); TOTAL BILIRUBIN 0.5 mg/dL (<0.1-1.0); TROPONIN-I 0.06 ng/mL (<0.06)
[2018-04-03] MEDS ORDERED: PHENERGAN 25 MG25 M1 PO (01:02)
[2018-04-03] MEDS ORDERED: ZOFRAN ODT4 MG PO (01:02)
[2018-04-03 01:04] VITALS: BP 173/91
--- NOTE | 2018-04-03 08:15 | EKG ---
[address] [place] [address] ELECTROCARDIOGRAM REPORT Name: MONET LANE [id number] Admission: 04/02/18 Attend Phys: Discharge: 04/03/18 Date of : 83 Report #: [id number] THIS REPORT FOR: //name// [facility] ED Test Date: 2018-04-02 Test Time: 21:52:34 Pat Name: MONET LANE Department: Room: Gender: M Marketing Program Coordinator: : 1985 Requested By: Silvano Bradley Order Number: [id number] MD: Facundo Polanco Measurements Intervals [place] Rate: 112 P: 46 [place]: 152 QRS: -12 QRSD: 86 T: 90 QT: 342 QTc: 467 Interpretive Statements Sinus tachycardia Poor R wave progression Compared to ECG 03/29/2018 17:55:26 No significant change was found Electronically Signed On 04-03-2018 8:14:52 SALES DEVELOPMENT EXECUTIVE by Facundo Polanco [email or web address] <ELECTRONICALLY SIGNED> By: Facundo Polanco MD, [facility] 04/03/18 0814 51 51 Facundo Polanco MD, [facility] /EPI
== END 2018-04-03 01:15 | disposition home or self-care (01) ==
LOC: ER 21:16
PROVIDERS: Emergency Medicine
DX: R10.9 Unspecified abdominal pain (principal); G89.29 Other chronic pain; R11.2 Nausea with vomiting, unspecified; E78.5 Hyperlipidemia, unspecified; E10.43 Type 1 diabetes mellitus with diabetic autonomic (poly)neuropathy; K31.84 Gastroparesis; I12.0 Hypertensive chronic kidney disease with stage 5 chronic kidney disease or end stage renal disease; E10.22 Type 1 diabetes mellitus with diabetic chronic kidney disease; N18.6 End stage renal disease; K86.1 Other chronic pancreatitis; Z99.2 Dependence on renal dialysis

== ENCOUNTER 2018-07-19 16:28 | Inpatient (IN) | payer OTHER ==
[~2018-07-19] VITALS: Ht 182.9 cm; Wt 85.2 kg
--- NOTE | ~2018-07-19 | HC ---
[facility] [place] [address] CONSULTATION Name: MONET L[address] JR Room #: 240-P ADM IN M.R.#: [id number] Admission: 07/19/18 ������������������ Attend Phys: Levi Freedman MD Discharge: ������������������ Date of : 83 Report #: [id number] THIS REPORT FOR: //name// CC: FAM unknown Levi Freedman DATE OF SERVICE: 07/19/2018 REASON FOR CONSULTATION: End-stage renal disease with hyperkalemia. HISTORY OF PRESENT ILLNESS: This is a 33-year-old male who presents to the Emergency Room with nausea and vomiting throughout the day today. He also has abdominal pain with that. He has numerous admissions to this hospital with similar type symptoms related to gastroparesis. In addition, the patient has end-stage renal disease and has been a chronic hemodialysis patient for the past year. He dialyzes at [facility] in [place]. He normally dialyzes on a Friday, Friday, Friday basis. He went to dialysis and received dialysis on 07/15/2018. He missed his next scheduled dialysis, which was on 07/17/2018. It is now 07/19/2018, so he has been 4 days without dialysis. Initial labs when he got to the Emergency Room showed a potassium level of 7. EKG showed peaked T waves across the precordium. He received treatment in the Emergency Room with albuterol, insulin, dextrose, and calcium. He needs urgent dialysis. The patient has end-stage renal disease due to diabetes and hypertension. He has been admitted to this hospital many times with similar type symptoms of gastroparesis and abdominal pain. Diabetes dates back to about age 17. He had numerous hospitalizations at which time we saw progressive chronic kidney disease. Blood pressure has always been difficult to treat. He has had a right upper arm brachiobasilic vein transposition fistula placed and he is using that for his dialysis. MEDICATIONS: Include insulin, carvedilol 12.5 mg b.i.d., metoclopramide 10 mg before meals and bedtime and amlodipine 10 mg daily. Also, clonidine 0.1 mg b.i.d., some Bentyl and some Zofran. Uncertain what medications he receives at dialysis, but I am sure he prior received some erythropoietin stimulating agent, possibly some vitamin D or vitamin D analog. ALLERGIES: No known medical allergies. SOCIAL HISTORY: The patient is , lives in [place], [place]. He is medically disabled. REVIEW OF SYSTEMS: He states he felt pretty well yesterday. He says he did fine on dialysis on Friday. His normal dialysis run is 4 hours and he will get 4-6 liters of ultrafiltration off with dialysis. That is fairly massive [facility] [address] [place] [address] CONSULTATION Name: MON[address] Room #: 240-P [facility] IN M.R.#: [id number] Admission: 07/19/18 ������������������ Attend Phys: Levi Freedman MD Discharge: ������������������ Date of : 83 Report #: [id number] amount for someone who is not all that big. He does not get much edema. He still makes a small amount of urine, maybe a couple of times a day. No hematuria. He is unaware of fevers, chills or sweats. Denies chest pain or palpitations or dyspnea at this time. PHYSICAL EXAMINATION: GENERAL: A 33-year-old male, seen in the Emergency Room. VITAL SIGNS: Blood pressure 195/89, heart rate 100, oxygen saturation 99%, respiratory rate 10, temperature 99.2 degrees Fahrenheit. HEENT: Shows pupils are equal and reactive. Sclerae nonicteric. Oral mucosa is moist, without lesions. NECK: Supple without adenopathy, thyromegaly, JVD or bruit. CHEST: Fairly clear bilaterally. CARDIOVASCULAR: Heart has prominent heart tones with regular tachycardia. No gallop. ABDOMEN: Has diminished bowel sounds. It is soft, mild diffuse tenderness. No point tenderness, guarding, or rebound. No organomegaly or masses. EXTREMITIES: Show a very nice right upper arm brachiobasilic vein transposition fistula in place with excellent flow. He has trace bilateral ankle edema. LABORATORY DATA: On arrival to the Emergency Room, sodium 129, potassium 7.0, chloride 88, bicarbonate 37, BUN 68, creatinine 11.7, glucose 415, calcium 7.8, phosphorus 7.2, magnesium 2.5, amylase 117, lipase 400. Total protein 7.1, albumin 3.1. White count 5.4, hemoglobin 8.0, hematocrit 23.1, platelets 199,000. Differential on the white count, 77 neutrophils, 17 lymphs, 4 monos, 1 eosinophil, 1 basophil. I reviewed his chest x-ray. He has cardiomegaly. There is some fluid in the fissure on the right, but not dramatic pulmonary venous changes. I reviewed his EKG, which showed peaked T waves and across the precordium. ASSESSMENT: 1. End-stage renal disease. He has been 4 days without dialysis. He is volume overloaded. He is hyperkalemic. He needs urgent dialysis tonight. I have already called the dialysis nurse and we will get him dialyzed to help some of this correct. 2. Critical hyperkalemia. He has received initial treatment in the Emergency Room. We will dialyze him against a 2 potassium dialysate and that should take care of the hyperkalemia. Certainly keeping sugar better controlled will also help us. He is rather hyperglycemic. 3. Hypertension, severe and poorly controlled. He has not dialyzed in 4 days. He is likely many liters over his dry weight, at which point he did have good blood pressure. He says he normally takes off 4-6 liters with each dialysis. We will target 5 liters tonight. 4. Nausea, vomiting, abdominal pain, all consistent with his recurring diabetic [facility] [address] [place] [address] CONSULTATION Name: DOMINGOMONETAnnika SIFUENTES Room #: 240-P ADM IN M.R.#: [id number] Admission: 07/19/18 ������������������ Attend Phys: Levi Freedman MD Discharge: ������������������ Date of : 83 Report #: [id number] gastropathy. 5. Longstanding diabetes mellitus. PLAN: 1. Emergent dialysis. We will run him 4 hours with 2 potassium dialysate and a 5-liter ultrafiltration. 2. Repeat labs in the morning. 3. Blood pressure should improve with the volume removal on dialysis. 4. We will follow along in the care of this patient. ��������������������������������������������� ���������������������������������������� By: ��������������������������������������������� 1937 [facility] Kanu Torrez MD /nt
[2018-07-19 16:39] VITALS: BP 199/102
[2018-07-19 16:59] LABS: HEMATOCRIT 23.1 % (42.0-52.0); MCHC 34.8 g/dL (28.0-37.0); MCV 89.1 fL (80.0-100.0); PLATELET COUNT 199 thou/uL (150-400); RBC 2.59 mil/uL (4.50-6.00); RDW 15.6 % (10.5-14.5); WBC 5.4 thou/uL (4.0-11.0)
[2018-07-19 17:08] LABS: MAGNESIUM 2.5 mg/dL (1.8-2.4); PHOSPHORUS 7.2 mg/dL (2.5-4.9)
[2018-07-19 17:30] LABS: ALBUMIN 3.1 g/dL (3.4-5.0); CALCIUM 7.8 mg/dL (8.5-10.1); CREATININE 11.7 mg/dL (0.7-1.3); DIRECT BILIRUBIN 0.2 mg/dL (<0.1-0.3); TOTAL BILIRUBIN 0.5 mg/dL (<0.1-1.0); TOTAL PROTEIN 7.1 g/dL (6.4-8.2)
[2018-07-19 17:35] LABS: ABSOLUTE NEUTROPHILS 4.2 thou/uL (1.4-8.2)
[2018-07-19 17:36] LABS: ANISOCYTOSIS 2+; POLYCHROMASIA OCCASIONAL
[2018-07-19 19:33] LABS: ALBUMIN 3.2 g/dL (3.4-5.0); CALCIUM 8.2 mg/dL (8.5-10.1); CREATININE 11.5 mg/dL (0.7-1.3); PHOSPHORUS 7.3 mg/dL (2.5-4.9)
[2018-07-19 19:37] LABS: POTASSIUM 7.1 mmol/L (3.5-5.1)
[2018-07-20] VITALS (32 sets, daily range): BP systolic 119–196; BP diastolic 60–104
--- NOTE | 2018-07-20 07:41 | NUR ---
PT ARRIVED IN ICU FROM ER AT 0210. PT HAD JUST FINISHED DIALYSIS IN THE ER. PT HYPERTENSIVE UPON ARRIVAL. CLONIDINE PATCH APPLIED. BP DID NOT IMPROVE, HYDRALAZINE GIVEN. BP IMPROVED SLIGHTLY, BUT ELEVATED AGAIN SOON AFTER. Fabiana SPANN FURNACE ROASTER CALLED AND NOTIFIED; METOPROLOL GIVEN EARLY. BP DID LOWER SLIGHTLY, BUT WAS STILL ELEVATED. PT MAY NEED TO BE RESTARTED ON HOME BP MEDS. LAB WAS UNABLE TO DRAW PT'S LABS THIS MORNING. OTHER ATTEMPTS ARE BEING MADE TO OBTAIN THEM. WILL CONTINUE TO MONITOR.
--- NOTE | 2018-07-20 08:47 | EKG ---
[address] [place] [address] ELECTROCARDIOGRAM REPORT Name: DOMINGORADHAMONETAnnika SIFUENTES Room #: 240-P ADM IN M.R.#: [id number] ������������������ Admission: 07/19/18 ������������������ Attend Phys: Levi Freedman MD Discharge: ������������������ Date of : 83 Report #: [id number] ����������������������������������������������������������������� [id number] THIS REPORT FOR: //name// [facility] ED Test Date: 2018-07-19 Test Time: 17:42:32 Pat Name: MONET LANE Department: Room: 240 Gender: M Stacker Operator: ren : 1985 Requested By: Guillaume Lockhart Order Number: [id number] MD: Facundo Polanco Measurements Intervals [place] Rate: 96 P: 59 AR: 171 QRS: -20 QRSD: 98 T: 100 QT: 367 QTc: 464 Interpretive Statements Sinus rhythm Borderline left axis deviation Poor R wave progression Nonspecific T wave abnormality Compared to ECG 04/02/2018 21:52:34 nonspecific change in the T wave abnormality Electronically Signed On 07-20-2018 8:47:45 CDT by Facundo Polanco [email or web address] ��������������������������������������������� <ELECTRONICALLY SIGNED> ���������������������������������������� By: Facundo Polanco MD, [facility] ��������������������������������������������� 07/20/18 0847 1742 1742 Facundo Polanco MD, [facility] /EPI
--- NOTE | 2018-07-20 10:34 | NUR ---
Nutrition: Pt admit with hyperkalemia due to missed dialysis. HX ESRD. Good appetite and stable weights reported. Requesting Nepro on trays. Low risk
--- NOTE | 2018-07-20 12:09 | NUR ---
INITIAL ASSESSMENT/DISCHARGE NOTE: Received consult due to pt missing dialysis on 07/17. LYNNE reviewed chart and spoke with nursing and attending physician. Pt was admitted from home due to hypertensive urgency/ESRD. Pt to have dialysis today and will discharge home. LYNNE met with pt at bedside. Introduced role of SW. Pt is alert/orientated x 4. Pt reports he lives at home with his grandmother. Prior to admission, pt was independent with ADLs. No use of DME. No hx of services or SNF/Rehab placement. Pt goes to the [facility] for outpatient dialysis on at 1100. Pt states he uses [employer] for transportation to/from dialysis. Pt's PCP is Dr. Yasmin Currie. Pt is aware and agreeable with discharge plan. Pt will need transportatino home when discharge. SW confirmed pt's home address: [address] [place] [address]. [facility] [address]. maintenance planner to fax clinical info and discharge orders/summary to [facility] when medically stable. LYNNE is following to assist as needed with discharge planning. [facility]--
[2018-07-20 14:54] LABS: HEMATOCRIT 22.2 % (42.0-52.0); HEMOGLOBIN 7.7 gm/dL (14.0-18.0); MCH 30.7 pg (26.0-34.0); MCHC 34.6 g/dL (28.0-37.0); MCV 88.6 fL (80.0-100.0); RBC 2.51 mil/uL (4.50-6.00); RDW 15.8 % (10.5-14.5); WBC 4.3 thou/uL (4.0-11.0)
[2018-07-20 15:27] LABS: ALBUMIN 2.8 g/dL (3.4-5.0); CALCIUM 8.2 mg/dL (8.5-10.1); MAGNESIUM 2.2 mg/dL (1.8-2.4); POTASSIUM 5.5 mmol/L (3.5-5.1); TOTAL BILIRUBIN 0.5 mg/dL (<0.1-1.0); TOTAL PROTEIN 6.5 g/dL (6.4-8.2)
[2018-07-20 15:32] LABS: CREATININE 7.2 mg/dL (0.7-1.3)
--- NOTE | 2018-07-20 16:30 | NUR ---
PT HAS DIALYSIS AT [facility] FAXED CLINICAL UPDATE SPOKE WITH HOOD SHE RECEIVED UPDATE AND JACOB THE DRUM OPERATOR GIVING TX WILL FAX FLOWSHEET TO CLINIC. PT TO DC AFTER DIALYSIS.
--- NOTE | 2018-07-20 20:30 | NUR ---
PT D/C FROM THE ICU, D/C SUMMARY REVIEWED WITH PT AND SIGNED BY PT AT 2015. PT TRANSPORTED TO MAIN ENTRANCE BY [facility]. TRANSPORT SERVICE TO TAKE PT HOME. PT DENIED ANY CONCERNS.
--- NOTE | 2018-07-21 10:22 | NUR ---
LATE ENTRY: SW spoke wit pt's nurse last evening around 1745 regarding pt's discharge. Pt had just finished dialysis. Awiating final discharge orders. SW provided pt's nurse with contact number for [employer] and requested pt's nurse ask for cab rate. Pt was discharged home last evening. community development planner to fax discharge orders/summary/flow sheet to [facility]. No further SW needs identified at this time, but is available to assist should needs arise.
[2018-07-22 07:10] LABS: HEPATITIS B SURFACE AG Negative (Negative)
== END 2018-07-20 20:30 | disposition home or self-care (01) | DRG 640 ==
LOC: ER 16:28 → EROBS 18:09 → ICU 18:09 → EROBS 18:17 → ICU 07-20 02:16
PROVIDERS: Emergency Medicine; Internal Medicine Nephrology; ADMIT Internal Medicine
PROC: 5A1D70Z Performance of Urinary Filtration, Intermittent, Less than 6 Hours Per Day (ICD-10-PCS; principal; 2018-07-19)
PROC: 5A1D70Z Performance of Urinary Filtration, Intermittent, Less than 6 Hours Per Day (ICD-10-PCS; 2018-07-20)
DX: E87.5 Hyperkalemia (principal); N18.6 End stage renal disease; I12.0 Hypertensive chronic kidney disease with stage 5 chronic kidney disease or end stage renal disease; K31.9 Disease of stomach and duodenum, unspecified; E78.5 Hyperlipidemia, unspecified; E10.69 Type 1 diabetes mellitus with other specified complication; E10.22 Type 1 diabetes mellitus with diabetic chronic kidney disease; I16.0 Hypertensive urgency; E10.43 Type 1 diabetes mellitus with diabetic autonomic (poly)neuropathy; K31.84 Gastroparesis; Z79.899 Other long term (current) drug therapy; Z79.2 Long term (current) use of antibiotics; Z88.8 Allergy status to other drugs, medicaments and biological substances; Z83.3 Family history of diabetes mellitus; Z91.013 Allergy to seafood; Z82.49 Family history of ischemic heart disease and other diseases of the circulatory system; Z79.4 Long term (current) use of insulin
CPT/HCPCS: 32100

== ENCOUNTER 2018-07-26 18:30 | Emergency (ER) | payer OTHER ==
[~2018-07-26] VITALS: Ht 182.9 cm; Wt 95.3 kg
[2018-07-26 19:24] LABS: ABSOLUTE NEUTROPHILS 2.7 thou/uL (1.4-8.2); BASOPHILS 0.7 % (0.0-2.0); EOSINOPHILS 2.8 % (0.0-3.0); HEMATOCRIT 20.9 % (42.0-52.0); HEMOGLOBIN 7.2 gm/dL (14.0-18.0); LYMPHOCYTES 26.3 % (24.0-44.0); MCHC 34.6 g/dL (28.0-37.0); MCV 89.7 fL (80.0-100.0); MONOCYTES 5.7 % (1.0-8.0); PLATELET COUNT 204 thou/uL (150-400); POLYS 64.5 % (36.0-66.0); RBC 2.34 mil/uL (4.50-6.00); RDW 15.1 % (10.5-14.5); WBC 4.2 thou/uL (4.0-11.0)
[2018-07-26 19:32] LABS: CALCIUM 8.4 mg/dL (8.5-10.1); CREATININE 12.2 mg/dL (0.7-1.3); POTASSIUM 5.2 mmol/L (3.5-5.1)
[2018-07-26 19:38] LABS: ALBUMIN 3.1 g/dL (3.4-5.0); DIRECT BILIRUBIN 0.2 mg/dL (<0.1-0.3); TOTAL BILIRUBIN 0.4 mg/dL (<0.1-1.0); TOTAL PROTEIN 7.3 g/dL (6.4-8.2)
[2018-07-26] MEDS ORDERED: REGLAN 10 MG TA10 MG PO (20:46)
[2018-07-26 20:55] VITALS: BP 192/89
== END 2018-07-26 21:15 | disposition home or self-care (01) ==
LOC: ER 18:30
PROVIDERS: Nurse Practitioner
DX: R11.2 Nausea with vomiting, unspecified (principal); R10.84 Generalized abdominal pain; E78.5 Hyperlipidemia, unspecified; I12.0 Hypertensive chronic kidney disease with stage 5 chronic kidney disease or end stage renal disease; E10.22 Type 1 diabetes mellitus with diabetic chronic kidney disease; N18.6 End stage renal disease; Z99.2 Dependence on renal dialysis; Z91.013 Allergy to seafood

== ENCOUNTER 2018-11-28 21:02 | Emergency (ER) | payer OTHER ==
[~2018-11-28] VITALS: Ht 185.4 cm; Wt 90.7 kg
[2018-11-28 22:09] LABS: HEMATOCRIT 30.1 % (42.0-52.0); HEMOGLOBIN 10.3 gm/dL (14.0-18.0); MCH 30.8 pg (26.0-34.0); MCHC 34.4 g/dL (28.0-37.0); MCV 89.4 fL (80.0-100.0); PLATELET COUNT 238 thou/uL (150-400); RBC 3.36 mil/uL (4.50-6.00); RDW 14.7 % (10.5-14.5); WBC 4.5 thou/uL (4.0-11.0)
[2018-11-28 22:17] LABS: CALCIUM 9.4 mg/dL (8.5-10.1); CREATININE 7.8 mg/dL (0.7-1.3); POTASSIUM 4.6 mmol/L (3.5-5.1)
[2018-11-28 22:23] LABS: ALBUMIN 3.7 g/dL (3.4-5.0); TOTAL BILIRUBIN 0.8 mg/dL (<0.1-1.0); TOTAL PROTEIN 8.2 g/dL (6.4-8.2)
[2018-11-28 23:04] LABS: PLATELET ESTIMATE NORMAL
[2018-11-28] MEDS ORDERED: ZOFRAN ODT4 MG PO (23:30)
[2018-11-29 00:40] VITALS: BP 173/73
--- NOTE | 2018-11-29 11:43 | EKG ---
[place] [address] [place] [address] ELECTROCARDIOGRAM REPORT Name: MONET LANE [id number] Admission: 11/28/18 Attend Phys: Discharge: 11/29/18 Date of : 83 Report #: [id number] THIS REPORT FOR: //name// [facility] [place] ED Test Date: 2018-11-28 Test Time: 21:37:44 Pat Name: MONET LANE Department: Room: Gender: M Central Service Tech: PIYUSH : 1985 Requested By: Ken Sultana Order Number: [id number] MD: Carlos Urban Measurements Intervals [place] Rate: 96 P: 37 [place]: 159 QRS: -10 QRSD: 84 T: 120 QT: 378 QTc: 478 Interpretive Statements Sinus rhythm Probable left atrial enlargement RSR' in V1 or V2, probably normal variant Probable LVH with secondary repol abnrm Anterior ST elevation, probably due to LVH Borderline prolonged QT interval Compared to ECG 07/19/2018 17:42:32 RSR' in V1 or V2 now present Left ventricular hypertrophy now present ST (T wave) deviation now present Poor R-wave progression no longer present T-wave abnormality no longer present Electronically Signed On 11-29-2018 11:42:50 CDT by Carlos Urban [email or web address] <ELECTRONICALLY SIGNED> By: Carlos Urban MD 11/29/18 1142 36 36 Carlos Urban MD /EPI
== END 2018-11-29 00:50 | disposition home or self-care (01) ==
LOC: ER 21:02
PROVIDERS: Emergency Medicine
DX: R11.2 Nausea with vomiting, unspecified (principal); I12.0 Hypertensive chronic kidney disease with stage 5 chronic kidney disease or end stage renal disease; E10.22 Type 1 diabetes mellitus with diabetic chronic kidney disease; N18.6 End stage renal disease; E78.5 Hyperlipidemia, unspecified; Z99.2 Dependence on renal dialysis; Z91.013 Allergy to seafood

== ENCOUNTER 2019-02-11 12:40 | Emergency (ER) | payer OTHER ==
[2019-02-11] VITALS (8 sets, daily range): BP systolic 168–1171; BP diastolic 82–141
[~2019-02-11] VITALS: Ht 182.9 cm; Wt 93.0 kg
[2019-02-11 14:13] LABS: ABSOLUTE NEUTROPHILS 3.4 thou/uL (1.4-8.2); BASOPHILS 1.1 % (0.0-2.0); EOSINOPHILS 0.9 % (0.0-3.0); HEMATOCRIT 33.5 % (42.0-52.0); HEMOGLOBIN 11.1 gm/dL (14.0-18.0); MCH 29.4 pg (26.0-34.0); MCV 88.9 fL (80.0-100.0); MONOCYTES 4.6 % (1.0-8.0); PLATELET COUNT 233 thou/uL (150-400); POLYS 76.4 % (36.0-66.0); RBC 3.77 mil/uL (4.50-6.00); WBC 4.4 thou/uL (4.0-11.0)
[2019-02-11 14:21] LABS: ANION GAP 11 mmol/L (7-16); BUN 30 mg/dL (7-18); CALCIUM 9.3 mg/dL (8.5-10.1); CHLORIDE 93 mmol/L (98-107); CO2 32 mmol/L (21-32); CREATININE 9.5 mg/dL (0.7-1.3); GLUCOSE 333 mg/dL (74-106); POTASSIUM 5.1 mmol/L (3.5-5.1); SODIUM 136 mmol/L (136-145)
[2019-02-11 14:31] LABS: ALBUMIN 3.7 g/dL (3.4-5.0); LIPASE 1791 U/L (73-393); SGOT 20 U/L (15-37); SGPT 26 U/L (30-65); TOTAL BILIRUBIN 0.8 mg/dL (<0.1-1.0); TROPONIN-I <0.06 ng/mL (<0.06)
--- NOTE | 2019-02-11 16:11 | EKG ---
[address] [place] [address] ELECTROCARDIOGRAM REPORT Name: MONET LANE Room #: 170-6 ADM IN M.R.#: [id number] Admission: 02/11/19 Attend Phys: All Sam Discharge: Date of : 83 Report #: [id number] THIS REPORT FOR: //name// [facility] ED Test Date: 2019-02-11 Test Time: 12:42:30 Pat Name: MONET LANE Department: Room: 170 Gender: M Computer Engineering Technologist: MARIELLE : 1985 Requested By: Goran Kwan Order Number: [id number] MD: Zach Altman Measurements Intervals [place] Rate: 111 P: 55 [place]: 154 QRS: -16 QRSD: 83 T: 96 QT: 347 QTc: 472 Interpretive Statements Sinus tachycardia Borderline left axis deviation Anteroseptal infarct, old Repol abnrm suggests ischemia, lateral leads Baseline wander in lead(s) V2 Compared to ECG 11/28/2018 21:37:44 Electronically Signed On 02-11-2019 16:11:27 ALIGNMENT TECHNICIAN by Zach Altman [email or web address] <ELECTRONICALLY SIGNED> By: Zach Altman MD 02/11/19 1611 1242 124 Zach Altman MD /EPI
== END 2019-02-11 19:40 | disposition left against medical advice (07) ==
LOC: ER 12:40 → EROBS 15:05 → ER 15:05 → EROBS 17:34 → ER 19:40
PROVIDERS: Emergency Medicine
DX: K85.90 Acute pancreatitis without necrosis or infection, unspecified (principal); K31.84 Gastroparesis; R11.2 Nausea with vomiting, unspecified; I12.0 Hypertensive chronic kidney disease with stage 5 chronic kidney disease or end stage renal disease; E10.43 Type 1 diabetes mellitus with diabetic autonomic (poly)neuropathy; E10.22 Type 1 diabetes mellitus with diabetic chronic kidney disease; E78.5 Hyperlipidemia, unspecified; N18.6 End stage renal disease; Z99.2 Dependence on renal dialysis; Z79.4 Long term (current) use of insulin; Z91.013 Allergy to seafood

== ENCOUNTER 2019-02-21 11:14 | Inpatient (IN) | payer OTHER ==
[2019-02-21] VITALS (8 sets, daily range): BP systolic 175–239; BP diastolic 83–114
[~2019-02-21] VITALS: Ht 185.4 cm; Wt 90.7 kg
--- NOTE | ~2019-02-21 | HC ---
[facility] [place] [address] CONSULTATION Name: MONET LANE Room #: 204-P [facility] IN M.R.#: [id number] Admission: 02/21/19 Attend Phys: Liya Harrington MD Discharge: Date of : 83 Report #: [id number] THIS REPORT FOR: //name// CC: FAM unknown Liya Harrington REASON FOR CONSULTATION: End-stage renal disease. REASON FOR PRESENTATION: Abdominal pain. HISTORY OF PRESENT ILLNESS: A 33-year-old who is maintained on hemodialysis every Friday, Friday and Friday. He is known to have longstanding diabetes mellitus and hypertension. He has major issues with narcotic dependence. He also has major issues with gastroparesis and was admitted on numerous times for the same complaint with extensive workup in the past. He presented yesterday reporting the same issues and was admitted for further evaluation and management. I am being consulted to manage his end-stage renal disease. PAST MEDICAL HISTORY: 1. End-stage renal disease. 2. Gastroparesis. 3. Diabetes mellitus. 4. Hypertension. MEDICATIONS: 1. Reglan. 2. Insulin. 3. Carvedilol. PERSONAL HISTORY: He uses marijuana. He denies other drug abuse. PAST SURGICAL HISTORY: AV fistula. ALLERGIES: SHELLFISH. FAMILY HISTORY: Significant for diabetes mellitus and hypertension. REVIEW OF SYSTEMS: GENERAL: Significant for weakness. CARDIOVASCULAR: No chest pain or palpitation. PULMONARY: No cough or hemoptysis. GASTROINTESTINAL: As per the history of present illness. GENITOURINARY: No frequency, no urgency. MUSCULOSKELETAL: Occasional myalgias. PHYSICAL EXAMINATION: VITAL SIGNS: His blood pressure is 162/100. He is afebrile with a temperature [facility] [address] [place] [address] CONSULTATION Name: MONET LANE Room #: 204-P [facility] IN M.R.#: [id number] Admission: 02/21/19 Attend Phys: Liya Harrington MD Discharge: Date of : 83 Report #: [id number] of 37.6. Pulse rate is 117. HEAD AND NECK: No jugular venous distention. CHEST: Decreased air entry bilaterally. CARDIOVASCULAR: Regular with no rub detected. ABDOMEN: Soft, nontender with slight tenderness, but no rebound, no guarding, no rigidity. LOWER EXTREMITIES: No edema. LABORATORY VALUES: Reviewed. Sodium 131, potassium 4.9, BUN 31, creatinine 10.7, phosphorus 6. IMPRESSION AND PLAN: 1. End-stage renal disease. 2. Hypertension. 3. Diabetes mellitus. 4. Gastroparesis. 5. Narcotic dependence. 6. We will arrange for the patient to have his usual hemodialysis today. 7. I will manage his blood pressure with the dialysis. 8. Try to minimize narcotics as much as possible. 9. Blood sugar control per primary team. By: [id number] Silver Fisher MD /malcom
--- NOTE | ~2019-02-21 | H ---
[facility] [place] [address] HISTORY AND PHYSICAL Name: MONET LANE Room #: 204-P ADM IN M.R.#: [id number] Admission: 02/21/19 Attend Phys: Liya Harrington MD Discharge: Date of : 83 Report #: [id number] THIS REPORT FOR: //name// CC: FAM unknown Liya Harrington DATE OF SERVICE: 02/21/2019 CHIEF COMPLAINT: Abdominal pain with nausea and vomiting for the last 2 days. HISTORY OF PRESENT ILLNESS: The patient is a very pleasant 33-year-old gentleman with end-stage renal disease, who is on hemodialysis on Friday, Friday and Friday and he informs me that Friday, he did go for dialysis, but could not complete and he just got 2.5 liters taken off and had to stop secondary to intractable nausea and vomiting. The patient informs me that later on it was followed by abdominal pain. He does not recall having any alcohol for the last several weeks to months. He is very vague about his alcohol intake; however, he is very sure that he has not had any. He does smoke marijuana and informs me that the last use was 3 weeks ago and the patient said that the pain got progressively worse and therefore he came to the hospital for further evaluation. In the Emergency Room, the patient was noted to have blood pressure of 218/114, heart rate 102 and was started on Cardene drip as well as he did not respond to hydralazine IV. The patient informs me that the abdominal pain did not resolve with Dilaudid and he would like something stronger. He describes the abdominal pain in the mid abdominal area, nonradiating, sharp excruciating pain is similar to that pancreatitis episodes he has had before. The patient denies any associated hematemesis and has not had any diarrhea or constipation, hematochezia, melena. The patient has not had any dizziness, lightheadedness, or syncopal episodes. He denies any associated fever, chills, night sweats either and he informs me that since he has been in the Emergency Room. He has noted some chest discomfort, which is midsternal and it is very short lasting like within few seconds it goes away. The patient said that the Dilaudid pain medicine did help him with the pain in the chest as well and he is unable to tell me how many episodes he has had. He denies any orthopnea or paroxysmal nocturnal dyspnea or leg edema noted recently and has not had any exertional chest pain and exertional dyspnea at home either. The patient informs me that he has been compliant with his blood pressure medications, which are basically clonidine, hydralazine and amlodipine and then he was unsure whether he is still supposed to take carvedilol or not, but he informs me that he has not been able to keep anything down and so since Friday, he has not had any of his blood pressure medications on board. The patient denies any exposure to GI illness in any of the family members in the recent past. PAST MEDICAL HISTORY: Significant for: 1. End-stage renal disease with hemodialysis on Friday, Friday, and Friday. 2. Gastroparesis. [address] [address] HISTORY AND PHYSICAL Name: MONET LANE Room #: 204-P [facility] IN M.R.#: [id number] Admission: 02/21/19 Attend Phys: Liya Harrington MD Discharge: Date of : 83 Report #: [id number] 3. Hypertension. 4. Insulin-dependent diabetes mellitus, not on any medication right now as per the patient. 5. Hyperlipidemia. ALLERGIES: THE PATIENT IS ALLERGIC TO SHELLFISH AND SHRIMP, WHICH CAUSES HIVES. CURRENT MEDICATIONS: As indicated above are hydralazine and amlodipine and clonidine. However, the Nephrology note indicates that he is supposed to be on Reglan, insulin, carvedilol in addition to these 3 medications. The patient gets his medications from [facility] pharmacy and so we will get that updated list. PERSONAL AND SOCIAL HISTORY: The patient had last marijuana use was 3 weeks ago and alcohol approximately one year ago and he denies any tobacco use for the last couple of months. The patient denies any IV drug abuse either. PAST SURGICAL HISTORY: He has had hemodialysis fistula placed on his right upper extremity and he denied any other surgeries. There has been has been liver biopsy also, according to the chart review, which the patient failed to mention. FAMILY HISTORY: The patient's mother had diabetes and high blood pressure. Father had some accidental at work. The patient denies any family history of cancer. Interestingly, the patient tells me he does not smoke, but he does smoke marijuana. Does not use tobacco or chewing or smoking form. REVIEW OF SYSTEMS: CONSTITUTIONAL: The patient informs me that he has had just generalized weakness and malaise, but denies any fever, shaking chills, night sweats. HEENT: Denies any sore throat, sinus drainage or ear infection. CARDIOLOGY: Denies any orthopnea, paroxysmal nocturnal dyspnea, palpitations or diaphoresis. The chest pain that he noticed in the Emergency Room was very short, lasting few seconds and was nonradiating and it was not associated with any dyspnea or any other symptoms. GASTROINTESTINAL: The patient has been having intractable nausea and vomiting since Friday and he could not complete dialysis secondary to that and also has mid abdominal pain. Denies any abdominal distention, hematochezia, melena or hematemesis. GENITOURINARY: Denies any dysuria or any hematuria. MUSCULOSKELETAL: Denies any pain or any joint pain or joint stiffness. SKIN: Denies any rash. PHYSICAL EXAMINATION: VITAL SIGNS: The patient has had temperature 36.7, heart rate 102, respiration 14, blood pressure 218/114, and pulse oximeter 99% at the time of arrival to the Emergency Room and when I saw the patient, he had a heart rate of 110, [facility] [address] [place] [address] HISTORY AND PHYSICAL Name: MONET LANE Room #: 204-P [facility] IN [facility]#: [id number] Admission: 02/21/19 Attend Phys: Liya Harrington MD Discharge: Date of : 83 Report #: [id number] respirations 17, blood pressure 239/112 and pulse oximeter 95% on room air. GENERAL: Alert and oriented to time, place and person, very pleasant 33-year-old gentleman who is uncomfortable with his hand in the mid abdominal area and complaining of pain 8/10 and has just received Dilaudid approximately 5 minutes ago and is not in any cardiopulmonary distress. HEENT: Normocephalic, atraumatic. Pupils equally round, reactive to light. Conjunctivae clear. Sclerae nonicteric. Extraocular muscle movements are intact. Mucous membranes dry. No thrush or any mucous membrane lesions noted. HEART: S1, S2, regular. No murmur, no S3, no S4. Tachycardia noted. LUNGS: Clear to auscultation bilaterally without any crackles or wheezes. Both lung nassar are bilaterally symmetrical. No chest wall tenderness noted. ABDOMEN: Soft, mild epigastric as well as mid abdominal tenderness without any rebound or rigidity and soft abdomen present. No hepatosplenomegaly appreciated. EXTREMITIES: The patient has extremely dry skin and 1+ pitting edema of both lower extremities and right upper extremity with AV fistula. NEUROLOGIC: Nonfocal. LABORATORY DATA AND X-RAYS: The patient has a point of contact glucose 162, lactic acid 0.9. Troponin I 0.06. Serum alcohol less than 10. WBC 3.7, hemoglobin 9.8, hematocrit 30.0 and platelet count 166. The patient has 68.6% segmented neutrophils, no band cells noted. Chemistry indicate sodium 134, potassium 4.9, chloride 94, bicarbonate 33, anion gap 7, BUN 26, creatinine 9.4, GFR 8, glucose 180, calcium 8.5, total bilirubin 0.7, direct bilirubin 0.2, AST 19, ALT 23, alkaline phosphatase 96, total protein 7.1, albumin 3.2. Lipase is elevated at 1017. Electrocardiogram indicates a QT interval corrected is 469 and sinus tachycardia and chest x-ray is pending at the time of dictation. ASSESSMENT AND PLAN: 1. Hypertensive urgency. 2. Atypical chest pain, likely secondary to hypertensive urgency. 3. Acute pancreatitis with chronic recurrent pancreatitis and intractable nausea and vomiting secondary to pancreatitis. 4. End-stage renal disease with hemodialysis Friday, Friday and Friday. 5. Diabetes mellitus, insulin-dependent. However, the patient informs me he is not on any medication and glucose has been normal. 6. Uncontrolled hypertension with noncompliance. 7. Hyperlipidemia. 8. DVT prophylaxis with heparin and GI prophylaxis with Protonix. PLAN: 1. The patient is being admitted to CCU and a Cardene drip started in the Emergency Room, has been weaned off as the patient responded to labetalol as well as hydralazine and Cardene drip. He is going to be on hydralazine scheduled IV as well as IV p.r.n. and we will go ahead and write for labetalol IV as well for systolic blood pressure greater than 160 mmHg. [facility] [address] [place] [address] HISTORY AND PHYSICAL Name: MONET LANE Room #: 204-P ADM IN M.R.#: [id number] Admission: 02/21/19 Attend Phys: Liya Harrington MD Discharge: Date of : 83 Report #: [id number] 2. Pain management with fentanyl as morphine and hydromorphone both have not helped him with pain management in the Emergency Room. 3. Continue n.p.o. 4. Gentle IV fluid. 5. Renal consult has been placed for dialysis as the patient will require dialysis tomorrow. His potassium today is 4.9 and we will go ahead and add magnesium and phosphorus for renal panel for tomorrow morning. 6. Follow up lipase tomorrow morning and the patient may need CT scan of abdomen if his abdominal pain persists. 7. For diabetes, we will write for sliding scale insulin q.i.d. as the patient is n.p.o. and we will leave it at a low dose sliding scale. 8. If the patient does not have improvement in symptoms, then we will consider putting GI consult for intractable nausea and vomiting. Advised the patient to stop using marijuana as cannabis has been known to cause significant nausea and vomiting in the setting the patient already has history of gastroparesis, so we will go ahead and give Reglan IV as well scheduled for next 24 hours and reassess tomorrow morning. Plan of care was discussed with the patient as well as the RN taking care of the patient in the Emergency Room. By: [id number] Liya Harrington MD /nt
[2019-02-21 12:40] LABS: ABSOLUTE NEUTROPHILS 2.5 thou/uL (1.4-8.2); BASOPHILS 1.3 % (0.0-2.0); EOSINOPHILS 2.8 % (0.0-3.0); HEMOGLOBIN 9.8 gm/dL (14.0-18.0); LYMPHOCYTES 21.6 % (24.0-44.0); MCH 29.4 pg (26.0-34.0); MCHC 32.7 g/dL (28.0-37.0); MCV 90.1 fL (80.0-100.0); MONOCYTES 5.7 % (1.0-8.0); PLATELET COUNT 166 thou/uL (150-400); POLYS 68.6 % (36.0-66.0); RBC 3.33 mil/uL (4.50-6.00); RDW 15.2 % (10.5-14.5); WBC 3.7 thou/uL (4.0-11.0)
[2019-02-21 12:51] LABS: CALCIUM 8.5 mg/dL (8.5-10.1); CREATININE 9.4 mg/dL (0.7-1.3); POTASSIUM 4.9 mmol/L (3.5-5.1)
[2019-02-21 12:57] LABS: ALBUMIN 3.2 g/dL (3.4-5.0); DIRECT BILIRUBIN 0.2 mg/dL (<0.1-0.2); TOTAL BILIRUBIN 0.7 mg/dL (<0.1-1.0); TOTAL PROTEIN 7.1 g/dL (6.4-8.2)
[2019-02-21] MEDS ORDERED: HYDRALAZINE 2525 MG PO (14:36)
--- NOTE | 2019-02-21 16:28 | NUR ---
CCU CALLED AND THIS A R COLLECTIONS REP SPOKE TO MAGDA TO INFORM HER THAT THE PT WAS TAKEN OFF OF THE NICARIPINE DRIP AND GIVEN LABETOLOL IVP. THE PT'S BP HAS COME DOWN FROM WHAT IT WAS WHEN THE NICARDIPINE WAS INITIALLY STARTED.
--- NOTE | 2019-02-21 19:23 | NUR ---
PATIENT ARRIVED FROM ED, ALERT AND ORIENTED. BP 172/112 AND TACHYCARDIAC. PATIENT UP AND RESTLESS, HE WAS DIAPHORETIC AND REFUSING TO GET BACK IN THE BED, HE SAID THAT HE IS HAVING ANXIETY ATTACK AND WANTED TO LEAVE THE ROOM. RAPID RESPONSE ACTIVATED, PATIENT ASSISSIT BACK TO BED, AND WAS CALM AND COOPERATIVE. SCHEDULLED MEDS GIVEN AND DR CARDOZO NOTIFIED. AND WILL CONTINUE TO MONITOR.
[2019-02-22] VITALS (14 sets, daily range): BP systolic 142–217; BP diastolic 54–103
--- NOTE | 2019-02-22 01:25 | NUR ---
ASSUMED CARE OF PATIENT AT 1899. BP ELEVATED. DIRECTOR BUSINESS INTEGRATION NOTIFIED, AMLODIPINE GIVEN. PATIENT REQUESTING PAIN MEDS, FENTYNAL GIVEN, PATIENT THEN SLEEPING. AT 2034, PT ATTEMPTED TO JUMP OUT OF BED, BECAME VERY CONFUSED, ARMS RIGID AND HARD TO RE-ORIENT. THIS RN IN THE ROOM, CALLED FOR HELP AND 3 COWORKERS IN TO ASSIST INCLUDING STORE TEAM MEMBER. PATIENT APPEARED TO BE HAVING SEIZURE LIKE ACTIVITY, HOWEVER WAS ABLE TO TALK AND ANSWER SOME QUESTIONS. STATES HE HAS HAD SEIZURES BEFORE AND NEEDED ATIVAN. PRN ATIVAN GIVEN, PATIENT MORE RELAXED AND FOLLOWING COMMANDS. PLACED ON CONTINUOUS MONITORING OF VITALS, O2 IN THE 80'S. PLACED ON 2L NC. NURSE PRACTITIONER UPDATED ON EVENTS. DIRECTOR BUSINESS INTEGRATION TO THE FLOOR TO EVALUATE PATIENT, AT THAT TIME PATIENT RESTING BUT AROUSABLE. BP CONTINUES TO BE SIGNIFICANTLY ELEVATED, CARDENE GTT ORDERED BY DR CARDOZO. CURRENTLY INFUSING, WILL CONTINUE TO MONITOR. WHEN THE PATIENT WAS ASKED ABOUT HX OF SEIZURES, HE STATED THAT THIS HAD HAPPENED BEFORE AT [facility] THE [place] 5 MONTHS AGO BUT HE HADN'T BEEN ABLE TO FOLLOW UP WITH A NEUROLOGIST DUE TO LACK OF INSURANCE. STATES HE IS ON DISABILITY AND LIVES AT HOME ALONE AND IS IN THE MIDDLE OF A DIVORCE. DENIES DRINKING ALCOHOL OR ANY PRESCRIBED PAIN MEDS OR STREET DRUGS. WAITING ON URINE SAMPLE PER ORDERS. SLEEPING AT THIS TIME, WHEN HE WAKES UP ASKS FOR PAIN MEDS. NPO DUE TO NAUSEA. NOT PROGRESSING TOWARDS POC GOALS.
[2019-02-22 05:50] LABS: ALBUMIN 3.5 g/dL (3.4-5.0); CALCIUM 8.6 mg/dL (8.5-10.1); MAGNESIUM 2.3 mg/dL (1.8-2.4); POTASSIUM 4.9 mmol/L (3.5-5.1); TOTAL BILIRUBIN 1.1 mg/dL (<0.1-1.0); TOTAL PROTEIN 7.9 g/dL (6.4-8.2)
[2019-02-22 05:53] LABS: CREATININE 10.7 mg/dL (0.7-1.3)
[2019-02-22 05:54] LABS: ABSOLUTE NEUTROPHILS 2.3 thou/uL (1.4-8.2); BASOPHILS 0.6 % (0.0-2.0); EOSINOPHILS 0.6 % (0.0-3.0); HEMATOCRIT 34.5 % (42.0-52.0); LYMPHOCYTES 28.7 % (24.0-44.0); MCH 29.2 pg (26.0-34.0); MCHC 31.9 g/dL (28.0-37.0); MCV 91.3 fL (80.0-100.0); MONOCYTES 5.6 % (1.0-8.0); POLYS 64.5 % (36.0-66.0); RBC 3.78 mil/uL (4.50-6.00); RDW 15.8 % (10.5-14.5); WBC 3.6 thou/uL (4.0-11.0)
[2019-02-22 05:56] LABS: PLATELET COUNT 21 thou/uL (150-400)
--- NOTE | 2019-02-22 10:16 | EKG ---
[address] [address] ELECTROCARDIOGRAM REPORT Name: MONET LANENE Room #: 204-P ADM IN M.R.#: [id number] Admission: 02/21/19 Attend Phys: Liya Harrington MD Discharge: Date of : 83 Report #: [id number] THIS REPORT FOR: //name// [facility] ED Test Date: 2019-02-21 Test Time: 15:53:48 Pat Name: MONET LANE Department: Room: [facility] Gender: M Storage Receipt Poster: [facility] : 1985 Requested By: Liya Harrington Order Number: [id number] MD: Facundo Ploanco Measurements Intervals [place] Rate: 119 P: 45 KS: 146 QRS: 9 QRSD: 89 T: 64 QT: 333 QTc: 469 Interpretive Statements Sinus tachycardia Probable anteroseptal infarct, old Repolarization abnormality, lateral leads Compared to ECG 02/11/2019 12:42:30 No significant change was found Electronically Signed On 02-22-2019 10:16:24 MOVEMENT EDUCATION SPECIALIST by Facundo Polanco [email or web address] <ELECTRONICALLY SIGNED> By: Facundo Polanco MD, FACC 02/22/19 1016 1553 1553 Facundo Polanco MD, [facility] /EPI
--- NOTE | 2019-02-22 15:14 | NUR ---
pt told HD nurse he was "going home" at 1300. at 1330 pt told me he wanted to leave AMA. we discussed why it was a bad idea. pt still insisted, Dr Lam called and made aware. At 1440 AMA paper was signed by pt. IV dc'd at 1450. pt left at 1500 and took all belongings.
[2019-02-22 17:12] LABS: PLATELET ESTIMATE MARKEDLY DECREASED
== END 2019-02-22 15:17 | disposition left against medical advice (07) | DRG 438 ==
LOC: ER 11:14 → 2N 15:15 → EROBS 15:15 → 2N 16:30
PROVIDERS: Emergency Medicine; ADMIT Internal Medicine
PROC: 5A1D70Z Performance of Urinary Filtration, Intermittent, Less than 6 Hours Per Day (ICD-10-PCS; principal; 2019-02-22)
DX: K85.90 Acute pancreatitis without necrosis or infection, unspecified (principal); N18.6 End stage renal disease; I16.1 Hypertensive emergency; I12.0 Hypertensive chronic kidney disease with stage 5 chronic kidney disease or end stage renal disease; F11.20 Opioid dependence, uncomplicated; E10.22 Type 1 diabetes mellitus with diabetic chronic kidney disease; E10.43 Type 1 diabetes mellitus with diabetic autonomic (poly)neuropathy; E78.5 Hyperlipidemia, unspecified; F12.90 Cannabis use, unspecified, uncomplicated; Z53.29 Procedure and treatment not carried out because of patient's decision for other reasons; K31.84 Gastroparesis; K86.1 Other chronic pancreatitis; Z91.19 Patient's noncompliance with other medical treatment and regimen; Z91.013 Allergy to seafood; Z83.3 Family history of diabetes mellitus; Z82.49 Family history of ischemic heart disease and other diseases of the circulatory system; Z79.4 Long term (current) use of insulin
CPT/HCPCS: 10797; 32100

== ENCOUNTER 2019-02-25 19:27 | Emergency (ER) | payer MEDICARE, OTHER ==
[~2019-02-25] VITALS: Ht 185.4 cm; Wt 90.7 kg
[2019-02-25 20:35] LABS: ABSOLUTE NEUTROPHILS 2.5 thou/uL (1.4-8.2); BASOPHILS 0.7 % (0.0-2.0); EOSINOPHILS 1.7 % (0.0-3.0); HEMATOCRIT 27.4 % (42.0-52.0); HEMOGLOBIN 8.9 gm/dL (14.0-18.0); LYMPHOCYTES 31.2 % (24.0-44.0); MCH 29.3 pg (26.0-34.0); MCHC 32.6 g/dL (28.0-37.0); MCV 89.9 fL (80.0-100.0); PLATELET COUNT 222 thou/uL (150-400); POLYS 58.4 % (36.0-66.0); RBC 3.05 mil/uL (4.50-6.00); RDW 14.9 % (10.5-14.5); WBC 4.2 thou/uL (4.0-11.0)
[2019-02-25 20:45] LABS: CALCIUM 8.4 mg/dL (8.5-10.1); CREATININE 7.5 mg/dL (0.7-1.3); POTASSIUM 4.7 mmol/L (3.5-5.1)
[2019-02-25 20:50] LABS: ALBUMIN 2.9 g/dL (3.4-5.0); DIRECT BILIRUBIN 0.1 mg/dL (<0.1-0.2); TOTAL BILIRUBIN 0.4 mg/dL (<0.1-1.0); TOTAL PROTEIN 6.8 g/dL (6.4-8.2)
[2019-02-26 07:09] VITALS: BP 198/83
--- NOTE | 2019-02-26 14:25 | EKG ---
[place] [address] [facility] [place] [address] ELECTROCARDIOGRAM REPORT Name: MONET L[address] [id number] Admission: 02/25/19 Attend Phys: Discharge: 02/26/19 Date of : 83 Report #: [id number] THIS REPORT FOR: //name// [facility] ED Test Date: 2019-02-25 Test Time: 19:37:32 Pat Name: MONET LANE Department: Room: Gender: M Coal Crusher Operator: DESI : 1985 Requested By: Emani Oakes Order Number: [id number] MD: Zach Altman Measurements Intervals [place] Rate: 90 P: 20 W[place]: 160 QRS: -24 QRSD: 84 T: 117 QT: 383 QTc: 469 Interpretive Statements Sinus rhythm Borderline left axis deviation ST elev, probable normal early repol pattern, unchanged from prior Compared to ECG 02/21/2019 15:53 Electronically Signed On 02-26-2019 14:24:33 SCIENTIFIC RECRUITER by Zach Altman [email or web address] <ELECTRONICALLY SIGNED> By: Zach Altman MD 02/26/19 1424 36 36 Zach Altman MD /EPI
== END 2019-02-26 07:11 | disposition home or self-care (01) ==
LOC: ER 19:27
PROVIDERS: Emergency Medicine
DX: E10.43 Type 1 diabetes mellitus with diabetic autonomic (poly)neuropathy (principal); K31.84 Gastroparesis; R56.9 Unspecified convulsions; R11.2 Nausea with vomiting, unspecified; E78.5 Hyperlipidemia, unspecified; E10.22 Type 1 diabetes mellitus with diabetic chronic kidney disease; I12.0 Hypertensive chronic kidney disease with stage 5 chronic kidney disease or end stage renal disease; N18.6 End stage renal disease; Z99.2 Dependence on renal dialysis; Z91.013 Allergy to seafood

== ENCOUNTER 2019-03-13 18:12 | Inpatient (IN) | payer MEDICARE, OTHER ==
[~2019-03-13] VITALS: Ht 182.9 cm; Wt 93.5 kg
[2019-03-13 18:13] VITALS: BP 203/170
[2019-03-13 19:35] LABS: HEMATOCRIT 26.8 % (42.0-52.0); HEMOGLOBIN 8.8 gm/dL (14.0-18.0); MCHC 32.8 g/dL (28.0-37.0); MCV 88.5 fL (80.0-100.0); RBC 3.02 mil/uL (4.50-6.00); RDW 15.6 % (10.5-14.5); WBC 4.8 thou/uL (4.0-11.0)
[2019-03-13 19:39] LABS: CALCIUM 8.5 mg/dL (8.5-10.1); CREATININE 11.1 mg/dL (0.7-1.3); POTASSIUM 5.8 mmol/L (3.5-5.1)
[2019-03-13 19:50] LABS: ALBUMIN 3.4 g/dL (3.4-5.0); DIRECT BILIRUBIN 0.2 mg/dL (<0.1-0.2); MAGNESIUM 2.4 mg/dL (1.8-2.4); TOTAL BILIRUBIN 0.7 mg/dL (<0.1-1.0); TOTAL PROTEIN 7.4 g/dL (6.4-8.2); TROPONIN-I 0.08 ng/mL (<0.06)
[2019-03-13 21:37] VITALS: BP 225/109
[2019-03-13 21:49] VITALS: BP 193/98
[2019-03-13 22:13] VITALS: BP 184/99
[2019-03-14 00:15] VITALS: BP 211/99
--- NOTE | 2019-03-14 01:32 | NUR ---
LAB STAFF UNABLE TO DRAW BLOOD FOR ORDERED LAB WORK. THIS NURSE ATTEMPTED. LAB STAFF SUGGESTS PT HAVE A LINE FOR LAB DRAWS. FORGESMITH NOTIFIED. NO NEED TO ESTABLISH LINE DRAWS AT THIS TIME. HOLD THE ORDERED LABS. PT BLOOD SUGAR 127 FORGESMITH NOTIFIED HOLD ORDERED 15 UNITS INSULIN GLARGINE.
[2019-03-14 01:55] VITALS: BP 200/92
[2019-03-14 04:39] VITALS: BP 187/109
[2019-03-14 05:18] VITALS: BP 185/94
--- NOTE | 2019-03-14 06:34 | NUR ---
PT ADMITTED TO THE FLOOR FROM ED APPROX 2215HRS. A&O X4. C/O GENERALIZED ABD PAIN PRN PAIN MEDS ORDERED. PT ASKING FOR FOR PAIN MEDS OCCASIONALLY. PT BP ELEVATED SCHEDULED AND PRN BP MEDS GIVEN OVERNITE. CONTINUING TO RECHECK BP. DIALYSIS PT MWF. LABS DRAWN THIS AM K REMAINS AT 5.8. PT HAS NEPHROLOGY CONSULTED. PT REPORTED MISSING DIALYSIS LAST FRI. DIALYSIS [facility] ON [place]. PT ANXIOUS OCCASIONALLY WALKING TO THE NURSE STATION. PT COOPERATIVE WITH CARE. NO N/V OR CP SINCE ARRIVAL TO THE FLOOR. PT REMAINS NPO EXCEPT FOR MEDS WITH SIPS OF H2O, D/T N/V WHILE HE PRESENTED TO ED AT .
[2019-03-14 06:47] LABS: TROPONIN-I 0.08 ng/mL (<0.06)
[2019-03-14 06:50] VITALS: BP 169/79
--- NOTE | 2019-03-14 07:10 | NUR ---
RECIEVED CALL BACK FROM DR Callejas FOR NEPHROLOGY ROUTINE CONSULT. PLAN IS TO DIALYZE PT THIS MORNING
[2019-03-14 08:12] VITALS: BP 163/90
--- NOTE | 2019-03-14 10:27 | EKG ---
[place] [address] [employer] [facility] [place] [address] ELECTROCARDIOGRAM REPORT Name: MONET LANE Room #: 209-P ADM IN M.R.#: [id number] Admission: 03/13/19 Attend Phys: Jessica Delgadillo MD Discharge: Date of : 83 Report #: [id number] THIS REPORT FOR: //name// [facility] ED Test Date: 2019-03-13 Test Time: 18:18:18 Pat Name: MONET LANE Department: Room: 209 Gender: M Bulb Inspector: ALFREDO : 1985 Requested By: Tonya Gibbs Order Number: [id number] MD: Carlos Urban Measurements Intervals [place] Rate: 103 P: 53 MD: 154 QRS: -20 QRSD: 80 T: 112 QT: 363 QTc: 475 Interpretive Statements Sinus tachycardia Probable left atrial enlargement Borderline left axis deviation RSR' in V1 or V2, probably normal variant Abnormal T, consider ischemia, lateral leads Compared to ECG 02/25/2019 19:37:32 Sinus rhythm no longer present ST (T wave) deviation no longer present Electronically Signed On 03-14-2019 10:26:23 DATABASE SOFTWARE TECHNICIAN by Carlos Urban [email or web address] <ELECTRONICALLY SIGNED> By: Carlos Urban MD 03/14/19 1026 1818 1818 Carlos Urban MD /EPI
--- NOTE | 2019-03-14 11:14 | NUR ---
ASSUMED CARE AT 0700, SHIFT ASSESSMENT DONE, MEDS GIVEN, BP BETTER THIS AM, SEE DOCUMENTATION. REPORTED PAIN, PRN PAIN MEDS GIVEN PER eMAR ORDER. AT 11 AM, PT CAME OUT TO THE HALLWAY AND INDICATED PT WANTS TO LEAVE AMA, DR CUELLO NOTIFIED, ON THE FLOOR. DESPITE DR CUELLO TALKING TO THE PT, HE DID NOT WANT TO STAY, TOOK HIS IV OUT BY HIMSELF, THIS NURSE CONFIRMED THAT THE IV WAS TAKEN OUT. TELE REMOVED. SIGNED AMA FORM, DR LLANES AND JOB DEVELOPER FOR [employer] NOTIFIED. LEFT THE FLOOR WITH SECURITY AT 1115.
--- NOTE | 2019-03-15 07:43 | HC ---
[facility] [place] [address] CONSULTATION Name: MON[address] Room #: 209-P [facility] IN M.R.#: [id number] Admission: 03/13/19 Attend Phys: Jessica Delgadillo MD Discharge: 03/14/19 Date of : 83 Report #: [id number] THIS REPORT FOR: //name// CC: Jessica Delgadillo [facility] unknown DATE OF SERVICE: 03/14/2019 REASON FOR CONSULTATION: End-stage renal disease with hypertension and hyperkalemia. HISTORY OF PRESENT ILLNESS: This is a 33-year-old male who has had many hospitalizations here at [facility]. He has end-stage renal disease and is a chronic hemodialysis patient. He dialyzes at the [facility] in [place]. He has been on dialysis, probably about 18 months now. He states he had his usual dialysis on 03/10/2019. On 03/12/2019, there was some snowy weather. Although most individuals were able to get to the dialysis unit, he states that his transportation did not come, so he did not go to dialysis and he sought no other way of getting to dialysis. As is his usual, when he misses dialysis, his blood pressure starts going up. He also tends to have nausea, vomiting, abdominal pain, always comes to the Emergency Room and so that is what he did last night. He ended up getting admitted to the CCU. He states he has had no nausea or vomiting since he came in. He got some p.r.n. medications for his blood pressure. He typically requires a very high volume of ultrafiltration with dialysis because of his blood pressure. His labs are as noted below. PAST MEDICAL HISTORY: End-stage renal disease due to diabetes and hypertension, chronic abdominal pain, gastroparesis, recurring nausea and vomiting. He has had diabetes since age 17. He has had a right upper arm brachiobasilic vein transposition fistula placed and that continues to function well. MEDICATIONS: Appear to be carvedilol 12.5 mg b.i.d., hydralazine 25 mg daily, amlodipine 10 mg daily, metoclopramide 10 mg 4 times daily. ALLERGIES: No known medical allergies. SOCIAL HISTORY: The patient is and lives in [place], [place]. He is medically disabled. REVIEW OF SYSTEMS: States he had felt well prior to missing hemodialysis. He had some nausea and vomiting and abdominal pain, which is his frequent complaint. Currently no dyspnea, cough, chest pain or palpitations. He is unaware of fevers, chills or sweats. He says he is tired and fatigued. PHYSICAL EXAMINATION: [facility] [address] [place] [address] CONSULTATION Name: LANEMONET Room #: 209-P [facility] IN M.R.#: [id number] Admission: 03/13/19 Attend Phys: Jessica Delgadillo MD Discharge: 03/14/19 Date of : 83 Report #: [id number] GENERAL: A 33-year-old male, awake and responsive. VITAL SIGNS: Blood pressure 163/90, heart rate 93, temperature 98.5 degrees Fahrenheit, and oxygen saturation 100%. HEENT: Shows pupils are equal and reactive. Sclerae nonicteric. Oral mucosa is moist. NECK: Veins are not distended. CHEST: Fairly clear, slight decrease in breath sounds in the bases. BACK: Shows no CVA tenderness. CARDIOVASCULAR: Heart has a regular rate and rhythm. ABDOMEN: Has bowel sounds, which are present and normoactive, no organomegaly or masses, tenderness, guarding or rebound noted. EXTREMITIES: Show no peripheral edema. He has a right upper arm fistula with good flow. Chest x-ray actually looks fairly clear, might have a bit of fluid in the fissures. No josselin pulmonary edema. LABORATORY DATA: From admission, sodium 130, potassium 5.8, chloride 90, bicarbonate 32, BUN 58, creatinine 11.1, glucose 186, AST 19, ALT 37, calcium 8.5, phosphorus 6.0, total protein 7.4, albumin 3.4. White count 4.8, hemoglobin 8.8, hematocrit 26.8, platelets 210,000. ASSESSMENT: 1. End-stage renal disease with hyperkalemia and hypertension. This has been a recurring issue when he misses dialysis. We will get him dialyzed today. I will ask for 5 liters of ultrafiltration. We will run him on a 2 potassium dialysate and that should correct both of these problems, at least until he needs his next dialysis. 2. Hypertension as above. I will leave him on his current medications at this point. Long-term volume control will be the best thing for blood pressure management, but obviously when he misses dialysis and does not get his volume all the way up, his blood pressure is not well controlled. 3. Recurring nausea, vomiting, abdominal pain usually related to his gastroparesis. 4. Longstanding diabetes mellitus. PLAN: 1. Dialysis today. 2. Get him back on his usual medicines. 3. We will follow along in his care. <ELECTRONICALLY SIGNED> By: Kanu Torrez MD 03/15/19 0743 1051 1106 Kanu Torrez MD /nt
== END 2019-03-14 11:10 | disposition left against medical advice (07) | DRG 640 ==
LOC: ER 18:12 → EROBS 21:37 → 2N 22:03
PROVIDERS: Emergency Medicine Emergency Medical Services; ADMIT Hospitalist
DX: E87.5 Hyperkalemia (principal); K85.90 Acute pancreatitis without necrosis or infection, unspecified; N18.6 End stage renal disease; K86.1 Other chronic pancreatitis; I12.0 Hypertensive chronic kidney disease with stage 5 chronic kidney disease or end stage renal disease; I16.0 Hypertensive urgency; G89.29 Other chronic pain; E10.43 Type 1 diabetes mellitus with diabetic autonomic (poly)neuropathy; K31.84 Gastroparesis; D64.9 Anemia, unspecified; E10.22 Type 1 diabetes mellitus with diabetic chronic kidney disease; E78.5 Hyperlipidemia, unspecified; Z99.2 Dependence on renal dialysis; Z79.899 Other long term (current) drug therapy; Z91.013 Allergy to seafood; Z83.3 Family history of diabetes mellitus; Z82.49 Family history of ischemic heart disease and other diseases of the circulatory system; Z91.15 Patient's noncompliance with renal dialysis
CPT/HCPCS: 10081; 32100

== ENCOUNTER 2019-03-30 16:52 | Inpatient (IN) | payer MEDICARE, OTHER ==
[~2019-03-30] VITALS: Ht 185.4 cm; Wt 92.6 kg
[2019-03-30 16:53] VITALS: BP 235/117
[2019-03-30 17:37] LABS: ABSOLUTE NEUTROPHILS 3.6 thou/uL (1.4-8.2); BASOPHILS 1.3 % (0.0-2.0); EOSINOPHILS 1.2 % (0.0-3.0); HEMATOCRIT 24.6 % (42.0-52.0); HEMOGLOBIN 8.2 gm/dL (14.0-18.0); LYMPHOCYTES 18.5 % (24.0-44.0); MCH 30.1 pg (26.0-34.0); MCHC 33.2 g/dL (28.0-37.0); MCV 90.5 fL (80.0-100.0); MONOCYTES 4.5 % (1.0-8.0); PLATELET COUNT 207 thou/uL (150-400); POLYS 74.5 % (36.0-66.0); RBC 2.71 mil/uL (4.50-6.00); RDW 18.3 % (10.5-14.5); WBC 4.8 thou/uL (4.0-11.0)
[2019-03-30 17:55] LABS: CREATININE 7.2 mg/dL (0.7-1.3); POTASSIUM 4.9 mmol/L (3.5-5.1)
[2019-03-30 17:59] LABS: ALBUMIN 3.1 g/dL (3.4-5.0); ANISOCYTOSIS 2+; MICROCYTES 1+; OVALOCYTES FEW; PLATELET ESTIMATE NORMAL; POIKILOCYTOSIS 1+; TOTAL BILIRUBIN 0.5 mg/dL (<0.1-1.0); TOTAL PROTEIN 6.8 g/dL (6.4-8.2)
[2019-03-30 18:00] LABS: MACROCYTES 1+; POLYCHROMASIA SLIGHT
[2019-03-30 23:10] VITALS: BP 189/100
[2019-03-30 23:46] VITALS: BP 193/100
[2019-03-31 00:15] VITALS: BP 195/107
[2019-03-31 04:17] VITALS: BP 168/87
[2019-03-31 07:30] VITALS: BP 159/79
--- NOTE | 2019-03-31 10:37 | NUR ---
DISCUSSED WITH SYLVIA SERNA, PT HAS VERY LIMITED PIV ACCESS DUE TO SCARRING ANS VESSELS NONCOMPRESSIBLE ON LEFT ARM, RIGHT ARM HAS DIALYSIS SHUNT
[2019-03-31 11:30] VITALS: BP 170/92
[2019-03-31 13:29] VITALS: BP 167/101
--- NOTE | 2019-03-31 13:31 | NUR ---
ASSUMED CARE 0700, ORIENTED X4, SLEEPY, NAUSE TX WITH MEDICATIONS, BP MEDS GIVEN PER DR ANM. NPO, UP AB RAFAEL PT IS LEAVING AMA, DR HOFFMAN NOTIFIED, DIALYSIS NURSE NOTIFIED AND PASSING ON AMA STATUS TO DR NAM. BP 161/101 ADVICED PT IT'S NOT RECOMMENDE TO LEAVE. PT VOICED NOTED BP IS "ABOUT RIGHT FOR ME". SIGNED AMA PAPER, REMOVED IV AND TELE. ALL BELONGINGS LEFT WITH PATIENT.
--- NOTE | 2019-03-31 13:41 | NUR ---
ORDERS RECEIVED FOR P.Lillie DAVISAL. CHART REVIEWED. WHEN P.T. ASKED Pt'S NURSE TO WORK WITH Pt, KARINA (THE NURSE) STATES THAT Pt LEFT AMA.
--- NOTE | 2019-03-31 14:41 | NUR ---
patient left AMA he dializes at [facility] dialysis [phone] [facility]. sp with Zenaida at clinic to alert he did not dialize today.
== END 2019-03-31 13:55 | disposition left against medical advice (07) | DRG 438 ==
LOC: ER 16:52 → 2N 22:30 → EROBS 22:30 → 2N 23:50
PROVIDERS: Physician Assistant; ADMIT Hospitalist
PROC: 5A1D70Z Performance of Urinary Filtration, Intermittent, Less than 6 Hours Per Day (ICD-10-PCS; principal; 2019-03-31)
DX: K85.90 Acute pancreatitis without necrosis or infection, unspecified (principal); N18.6 End stage renal disease; I16.1 Hypertensive emergency; I12.0 Hypertensive chronic kidney disease with stage 5 chronic kidney disease or end stage renal disease; I16.0 Hypertensive urgency; F12.90 Cannabis use, unspecified, uncomplicated; E78.5 Hyperlipidemia, unspecified; K31.84 Gastroparesis; K86.1 Other chronic pancreatitis; E11.22 Type 2 diabetes mellitus with diabetic chronic kidney disease; D53.9 Nutritional anemia, unspecified; E11.43 Type 2 diabetes mellitus with diabetic autonomic (poly)neuropathy; Z99.2 Dependence on renal dialysis; Z79.899 Other long term (current) drug therapy; Z91.013 Allergy to seafood; Z83.3 Family history of diabetes mellitus; Z82.49 Family history of ischemic heart disease and other diseases of the circulatory system; Z91.14 Patient's other noncompliance with medication regimen
CPT/HCPCS: 10081; 32100

== ENCOUNTER 2019-06-09 17:00 | Emergency (ER) | payer OTHER ==
[~2019-06-09] VITALS: Ht 182.9 cm; Wt 90.7 kg
[2019-06-09 18:30] LABS: CALCIUM 7.9 mg/dL (8.5-10.1); CREATININE 5.3 mg/dL (0.7-1.3); POTASSIUM 4.3 mmol/L (3.5-5.1)
[2019-06-09 18:31] LABS: ABSOLUTE NEUTROPHILS 6.5 thou/uL (1.4-8.2); BASOPHILS 0.7 % (0.0-2.0); EOSINOPHILS 0.8 % (0.0-3.0); HEMOGLOBIN 9.5 gm/dL (14.0-18.0); LYMPHOCYTES 11.3 % (24.0-44.0); MCHC 33.9 g/dL (28.0-37.0); MCV 91.6 fL (80.0-100.0); MONOCYTES 4.5 % (1.0-8.0); PLATELET COUNT 232 thou/uL (150-400); POLYS 82.7 % (36.0-66.0); RBC 3.05 mil/uL (4.50-6.00); RDW 15.1 % (10.5-14.5); WBC 7.9 thou/uL (4.0-11.0)
[2019-06-09] MEDS ORDERED: CLEOCIN HCL150 MG PO (18:46)
[2019-06-09] MEDS ORDERED: NORCO 5-325 TA1 EAC1 PO (18:46)
[2019-06-09 19:30] VITALS: BP 202/89
== END 2019-06-09 19:25 | disposition home or self-care (01) ==
LOC: ER 17:00
PROVIDERS: Nurse Practitioner Family
DX: L02.01 Cutaneous abscess of face (principal); E78.5 Hyperlipidemia, unspecified; I12.0 Hypertensive chronic kidney disease with stage 5 chronic kidney disease or end stage renal disease; E10.22 Type 1 diabetes mellitus with diabetic chronic kidney disease; N18.6 End stage renal disease; Z99.2 Dependence on renal dialysis; Z79.899 Other long term (current) drug therapy; Z91.013 Allergy to seafood

== ENCOUNTER 2019-06-13 04:13 | Emergency (ER) | payer OTHER ==
[~2019-06-13] VITALS: Ht 182.9 cm; Wt 90.7 kg
[~2019-06-13 04:13] MED LIST changes: -AUGMENTIN 500-1 EACH PO
[2019-06-13 04:14] VITALS: BP 201/100
[2019-06-13] MEDS ORDERED: AUGMENTIN 500-1 EACH PO (05:06)
[2019-06-13] MEDS ORDERED: NORCO 5-325 TA1 EAC1 PO (05:17)
[2019-06-13] MEDS ORDERED: MIRALAX17 GM PO (05:18)
== END 2019-06-13 05:33 | disposition home or self-care (01) ==
LOC: ER 04:13
DX: K61.0 Anal abscess (principal); E78.5 Hyperlipidemia, unspecified; I12.0 Hypertensive chronic kidney disease with stage 5 chronic kidney disease or end stage renal disease; E10.22 Type 1 diabetes mellitus with diabetic chronic kidney disease; N18.6 End stage renal disease; Z99.2 Dependence on renal dialysis; Z79.4 Long term (current) use of insulin; Z79.899 Other long term (current) drug therapy; Z91.013 Allergy to seafood

== ENCOUNTER → 2019-06-13 | Emergency (ER) | payer OTHER ==
[~2019-06-13] VITALS: Ht 182.9 cm; Wt 97.5 kg
[~2019-06-13] MED LIST changes: +AUGMENTIN 500-1 EACH PO; +CLEOCIN HCL150 MG PO; +NORCO 5-325 TA1 EAC1 PO
[2019-06-13 13:24] LABS: ABSOLUTE NEUTROPHILS 10.4 thou/uL (1.4-8.2); BASOPHILS 0.6 % (0.0-2.0); EOSINOPHILS 0.3 % (0.0-3.0); HEMATOCRIT 26.1 % (42.0-52.0); HEMOGLOBIN 8.7 gm/dL (14.0-18.0); LYMPHOCYTES 3.6 % (24.0-44.0); MCH 30.8 pg (26.0-34.0); MCHC 33.3 g/dL (28.0-37.0); MCV 92.5 fL (80.0-100.0); MONOCYTES 2.9 % (1.0-8.0); PLATELET COUNT 215 thou/uL (150-400); POLYS 92.6 % (36.0-66.0); RBC 2.82 mil/uL (4.50-6.00); RDW 15.3 % (10.5-14.5); WBC 11.2 thou/uL (4.0-11.0)
[2019-06-13 13:31] LABS: CALCIUM 7.7 mg/dL (8.5-10.1); CREATININE 5.8 mg/dL (0.7-1.3); POTASSIUM 4.1 mmol/L (3.5-5.1)
[2019-06-13 13:38] LABS: ALBUMIN 2.6 g/dL (3.4-5.0); DIRECT BILIRUBIN 0.2 mg/dL (<0.1-0.2); TOTAL BILIRUBIN 0.5 mg/dL (<0.1-1.0); TOTAL PROTEIN 6.3 g/dL (6.4-8.2)
[2019-06-13 16:01] VITALS: BP 156/85
== END ==
LOC: ER 10:18
PROVIDERS: Emergency Medicine
DX: R11.2 Nausea with vomiting, unspecified (principal); R10.9 Unspecified abdominal pain; R50.9 Fever, unspecified; I12.0 Hypertensive chronic kidney disease with stage 5 chronic kidney disease or end stage renal disease; E10.22 Type 1 diabetes mellitus with diabetic chronic kidney disease; N18.6 End stage renal disease; F11.90 Opioid use, unspecified, uncomplicated; Z99.2 Dependence on renal dialysis; Z79.4 Long term (current) use of insulin; Z79.899 Other long term (current) drug therapy; Z91.013 Allergy to seafood

== ENCOUNTER 2019-06-17 12:44 | Emergency (ER) | payer OTHER ==
[~2019-06-17] VITALS: Ht 182.9 cm; Wt 93.0 kg
[~2019-06-17 12:44] MED LIST changes: +AUGMENTIN 500-1 EACH PO
[2019-06-17 14:09] LABS: ABSOLUTE NEUTROPHILS 3.1 thou/uL (1.4-8.2); BASOPHILS 0.9 % (0.0-2.0); HEMATOCRIT 28.3 % (42.0-52.0); HEMOGLOBIN 9.6 gm/dL (14.0-18.0); LYMPHOCYTES 20.7 % (24.0-44.0); MCH 31.4 pg (26.0-34.0); MCHC 34.1 g/dL (28.0-37.0); MCV 92.2 fL (80.0-100.0); MONOCYTES 3.7 % (1.0-8.0); PLATELET COUNT 209 thou/uL (150-400); POLYS 72.7 % (36.0-66.0); RBC 3.07 mil/uL (4.50-6.00); RDW 15.9 % (10.5-14.5); WBC 4.3 thou/uL (4.0-11.0)
[2019-06-17 14:39] LABS: ALBUMIN 2.6 g/dL (3.4-5.0); ANION GAP 5 mmol/L (7-16); BUN 32 mg/dL (7-18); CHLORIDE 85 mmol/L (98-107); CO2 32 mmol/L (21-32); CREATININE 6.3 mg/dL (0.7-1.3); DIRECT BILIRUBIN < 0.1 mg/dL (<0.1-0.2); LIPASE 209 U/L (73-393); POTASSIUM 5.4 mmol/L (3.5-5.1); SGOT 25 U/L (15-37); SGPT 36 U/L (30-65); SODIUM 122 mmol/L (136-145); TOTAL BILIRUBIN 0.6 mg/dL (<0.1-1.0); TOTAL PROTEIN 6.8 g/dL (6.4-8.2)
[2019-06-17 14:42] LABS: GLUCOSE 597 mg/dL (74-106)
[2019-06-17 15:21] LABS: BE(vivo) 5.9 mmol/L (-2 to +3); HCO3 30.3 mmol/L (22.0-26.0); PCO2 VENOUS 43.3 mmHg (41.0-51.0); PO2 VENOUS 33.6 mmHg (35.0-45.0)
[2019-06-17 17:36] VITALS: BP 211/104
--- NOTE | 2019-06-18 08:12 | EKG ---
[facility] [place] [address] ELECTROCARDIOGRAM REPORT Name: MONET L[address] Room #: DEP [facility]#: [id number] Admission: 06/17/19 Attend Phys: Discharge: 06/17/19 Date of : 83 Report #: [id number] THIS REPORT FOR: cc: JERAMIE Mcghee family physician/PCP JERAMIE - Litzy family physician/PCP Facundo Polanco MD [facility] THIS REPORT FOR: //name// [facility] ED Test Date: 2019-06-17 Test Time: 12:49:48 Pat Name: MONET LANE Department: Room: Gender: [facility] 1985 Requested By: Emani Oakes Order Number: [id number] MD: Facundo Polanco Measurements Intervals [place] Rate: 88 P: 30 ID: 172 QRS: -24 QRSD: 83 T: 94 QT: 383 QTc: 464 Interpretive Statements Sinus rhythm Borderline left axis deviation Poor R wave progression Nonspecific T wave abnormality Compared to ECG 03/13/2019 18:18:18 Sinus tachycardia no longer present Electronically Signed On 06-18-2019 8:11:06 CDT by Facundo Polanco [email or web address] <ELECTRONICALLY SIGNED> By: Facundo Polanco MD, [facility] 06/18/19 0811 1249 1249 Facundo Polanco MD, [facility] /EPI
== END 2019-06-17 17:37 | disposition home or self-care (01) ==
LOC: ER 12:44
PROVIDERS: Emergency Medicine
DX: E10.65 Type 1 diabetes mellitus with hyperglycemia (principal); E10.22 Type 1 diabetes mellitus with diabetic chronic kidney disease; I12.0 Hypertensive chronic kidney disease with stage 5 chronic kidney disease or end stage renal disease; N18.6 End stage renal disease; R06.00 Dyspnea, unspecified; Z91.14 Patient's other noncompliance with medication regimen; Z79.899 Other long term (current) drug therapy; Z91.013 Allergy to seafood

== ENCOUNTER 2019-06-26 05:59 | Inpatient (IN) | payer OTHER ==
[~2019-06-26] VITALS: Ht 188 cm; Wt 98.6 kg
[2019-06-26 06:00] VITALS: BP 220/123
[2019-06-26 07:26] LABS: ABSOLUTE NEUTROPHILS 3.9 thou/uL (1.4-8.2); EOSINOPHILS 1.1 % (0.0-3.0); HEMATOCRIT 27.8 % (42.0-52.0); HEMOGLOBIN 9.3 gm/dL (14.0-18.0); LYMPHOCYTES 21.6 % (24.0-44.0); MCH 31.7 pg (26.0-34.0); MCHC 33.5 g/dL (28.0-37.0); MCV 94.6 fL (80.0-100.0); MONOCYTES 3.3 % (1.0-8.0); PLATELET COUNT 201 thou/uL (150-400); RBC 2.93 mil/uL (4.50-6.00); RDW 17.5 % (10.5-14.5); WBC 5.3 thou/uL (4.0-11.0)
[2019-06-26 07:40] LABS: ALBUMIN 2.7 g/dL (3.4-5.0); CALCIUM 8.2 mg/dL (8.5-10.1); CREATININE 5.1 mg/dL (0.7-1.3); TOTAL BILIRUBIN 0.6 mg/dL (<0.1-1.0); TOTAL PROTEIN 6.5 g/dL (6.4-8.2); TROPONIN-I 0.06 ng/mL (<0.06)
[2019-06-26 07:44] LABS: POTASSIUM 6.7 mmol/L (3.5-5.1)
--- NOTE | 2019-06-26 10:07 | EKG ---
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: SHERYL : 1985 Requested By: Tonya Gibbs Order Number: [id number] MD: Facundo Polanco Measurements Intervals [place] Rate: 99 P: 38 NV: 160 QRS: -30 QRSD: 87 T: 111 QT: 368 QTc: 473 Interpretive Statements Sinus rhythm Left axis deviation Poor R wave progression Nonspecific T abnormalities, lateral leads Compared to ECG 06/17/2019 12:49:48 No significant change was found Electronically Signed On 06-26-2019 10:05:21 CDT by Facundo Polanco [email or web address] <ELECTRONICALLY SIGNED> By: Facundo Polanco MD, [facility] 06/26/19 1005 9 9 Facundo Polanco MD, [facility] /EPI
[2019-06-26 10:27] VITALS: BP 159/101
[2019-06-26 10:51] VITALS: BP 219/97
[2019-06-26 10:55] LABS: CALCIUM 8.4 mg/dL (8.5-10.1); CREATININE 5.2 mg/dL (0.7-1.3)
[2019-06-26 10:57] LABS: POTASSIUM 6.1 mmol/L (3.5-5.1)
[2019-06-26 11:30] VITALS: BP 219/97
[2019-06-26 16:30] VITALS: BP 235/118
[2019-06-26 19:45] VITALS: BP 194/94
[2019-06-27] VITALS (7 sets, daily range): BP systolic 130–196; BP diastolic 62–119
[2019-06-27 10:41] LABS: CALCIUM 8.5 mg/dL (8.5-10.1); CREATININE 4.7 mg/dL (0.7-1.3); POTASSIUM 5.7 mmol/L (3.5-5.1)
[2019-06-27] MEDS ORDERED: ZOFRAN 4 MG ORAL4 MG PO (12:35)
[2019-06-27] MEDS ORDERED: HYDRALAZINE 5050 MG PO (12:35)
== END 2019-06-27 15:05 | disposition left against medical advice (07) | DRG 73 ==
LOC: ER 05:59 → EROBS 09:18 → 2N 09:18
PROVIDERS: Emergency Medicine Emergency Medical Services; Hospitalist; ADMIT Hospitalist
PROC: 5A1D70Z Performance of Urinary Filtration, Intermittent, Less than 6 Hours Per Day (ICD-10-PCS; principal; 2019-06-26)
DX: E10.43 Type 1 diabetes mellitus with diabetic autonomic (poly)neuropathy (principal); N18.6 End stage renal disease; I12.0 Hypertensive chronic kidney disease with stage 5 chronic kidney disease or end stage renal disease; E87.5 Hyperkalemia; I16.0 Hypertensive urgency; K31.84 Gastroparesis; E78.5 Hyperlipidemia, unspecified; Z53.29 Procedure and treatment not carried out because of patient's decision for other reasons; E10.22 Type 1 diabetes mellitus with diabetic chronic kidney disease; Z91.013 Allergy to seafood; Z91.14 Patient's other noncompliance with medication regimen; Z79.4 Long term (current) use of insulin
CPT/HCPCS: 10081; 32100

== ENCOUNTER 2019-07-07 11:47 | Emergency (ER) | payer OTHER ==
[~2019-07-07] VITALS: Ht 182.9 cm; Wt 90.7 kg
[~2019-07-07 11:47] MED LIST changes: +HYDRALAZINE 5050 MG PO; +ZOFRAN 4 MG ORAL4 MG PO
[2019-07-07 12:32] LABS: HEMATOCRIT 33.4 % (42.0-52.0); HEMOGLOBIN 11.1 gm/dL (14.0-18.0); MCH 31.2 pg (26.0-34.0); MCHC 33.1 g/dL (28.0-37.0); MCV 94.1 fL (80.0-100.0); RBC 3.55 mil/uL (4.50-6.00); RDW 17.3 % (10.5-14.5); WBC 8.5 thou/uL (4.0-11.0)
[2019-07-07 12:44] LABS: CALCIUM 8.6 mg/dL (8.5-10.1); CREATININE 4.5 mg/dL (0.7-1.3); POTASSIUM 4.8 mmol/L (3.5-5.1)
[2019-07-07 12:46] LABS: APTT 25.3 Seconds (24.5-32.8); INR 1.1
[2019-07-07 12:58] LABS: ALBUMIN 3.1 g/dL (3.4-5.0); DIRECT BILIRUBIN 0.2 mg/dL (<0.1-0.2); TOTAL BILIRUBIN 0.8 mg/dL (<0.1-1.0); TOTAL PROTEIN 7.5 g/dL (6.4-8.2)
[2019-07-07 16:45] VITALS: BP 172/110
== END 2019-07-07 17:05 | disposition home or self-care (01) ==
LOC: ER 11:47
PROVIDERS: Emergency Medicine
DX: T82.838A Hemorrhage due to vascular prosthetic devices, implants and grafts, initial encounter (principal); R42 Dizziness and giddiness; R10.9 Unspecified abdominal pain; R11.0 Nausea; I12.0 Hypertensive chronic kidney disease with stage 5 chronic kidney disease or end stage renal disease; E10.22 Type 1 diabetes mellitus with diabetic chronic kidney disease; N18.6 End stage renal disease; E78.5 Hyperlipidemia, unspecified; Z03.818 Encounter for observation for suspected exposure to other biological agents ruled out; Z99.2 Dependence on renal dialysis; Z79.899 Other long term (current) drug therapy; Z91.013 Allergy to seafood; Y83.8 Other surgical procedures as the cause of abnormal reaction of the patient, or of later complication, without mention of misadventure at the time of the procedure; Y92.89 Other specified places as the place of occurrence of the external cause

== ENCOUNTER 2019-07-15 21:35 | Emergency (ER) | payer OTHER ==
[~2019-07-15] VITALS: Ht 182.9 cm; Wt 90.7 kg
[2019-07-16 00:14] LABS: HEMATOCRIT 27.7 % (42.0-52.0); HEMOGLOBIN 9.1 gm/dL (14.0-18.0); MCH 31.3 pg (26.0-34.0); MCHC 32.8 g/dL (28.0-37.0); MCV 95.5 fL (80.0-100.0); RBC 2.9 mil/uL (4.50-6.00); RDW 16.8 % (10.5-14.5); WBC 4.4 thou/uL (4.0-11.0)
[2019-07-16 00:23] LABS: CALCIUM 7.9 mg/dL (8.5-10.1); CREATININE 6.3 mg/dL (0.7-1.3); POTASSIUM 5.5 mmol/L (3.5-5.1)
[2019-07-16 00:29] LABS: ALBUMIN 2.9 g/dL (3.4-5.0); DIRECT BILIRUBIN 0.1 mg/dL (<0.1-0.2); TOTAL BILIRUBIN 0.5 mg/dL (0.2-1.0); TOTAL PROTEIN 7.1 g/dL (6.4-8.2)
[2019-07-16 02:16] VITALS: BP 172/98
--- NOTE | 2019-07-16 08:14 | EKG ---
[facility] [place] [address] ELECTROCARDIOGRAM REPORT Name: MONET L[address] [id number] Admission: 07/15/19 Attend Phys: Discharge: 07/16/19 Date of : 83 Report #: [id number] THIS REPORT FOR: cc: JERAMIE - Litzy family physician/PCP JERAMIE - Litzy family physician/PCP Facundo Polanco MD 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: NO : 1985 Requested By: Emani Oakes Order Number: [id number] MD: Facundo Polanco Measurements Intervals [place] Rate: 97 P: 46 IA: 166 QRS: -15 QRSD: 86 T: 115 QT: 364 QTc: 463 Interpretive Statements Sinus rhythm Borderline left axis deviation RSR' in V1 or V2, probably normal variant Nonspecific T abnormalities Baseline wander in lead(s) V3 Compared to ECG 06/26/2019 06:20:48 No significant change was found Electronically Signed On 07-16-2019 8:12:50 CDT by Facundo Polanco [email or web address] <ELECTRONICALLY SIGNED> By: Facundo Polanco MD, [facility] 07/16/19811 99 99 Facundo Polanco MD, [facility] /EPI
--- NOTE | 2019-07-16 08:14 | EKG ---
[facility] [place] [address] ELECTROCARDIOGRAM REPORT Name: MONET L[address] [id number] Admission: 07/15/19 Attend Phys: Discharge: 07/16/19 Date of : 83 Report #: [id number] THIS REPORT FOR: cc: JERAMIE Mcghee family physician/PCP JERAMIE - Litzy family physician/PCP Facundo Polanco MD [facility] THIS REPORT FOR: //name// 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 : 1985 Requested By: Emani Oakes Order Number: [id number] MD: Facundo Polanco Measurements Intervals [place] Rate: 102 P: 21 OR: 167 QRS: -29 QRSD: 85 T: 98 QT: 355 QTc: 463 Interpretive Statements Sinus tachycardia RSR' in V1 or V2, probably normal variant Poor R wave progression Nonspecific T wave abnormality Compared to ECG 06/26/2019 06:20:48 No significant change was found Electronically Signed On 07-16-2019 8:12:26 CDT by Facundo Polanco [email or web address] <ELECTRONICALLY SIGNED> By: Facundo Polanco MD, [facility] 07/16/19 0812 42 42 Facundo Polanco MD, [facility] /EPI
== END 2019-07-16 02:23 | disposition home or self-care (01) ==
LOC: ER 21:35
PROVIDERS: Emergency Medicine
DX: R60.0 Localized edema (principal); R10.9 Unspecified abdominal pain; R11.2 Nausea with vomiting, unspecified; I12.0 Hypertensive chronic kidney disease with stage 5 chronic kidney disease or end stage renal disease; E10.22 Type 1 diabetes mellitus with diabetic chronic kidney disease; N18.6 End stage renal disease; E10.65 Type 1 diabetes mellitus with hyperglycemia; Z99.2 Dependence on renal dialysis; Z98.84 Bariatric surgery status; E78.5 Hyperlipidemia, unspecified; Z79.899 Other long term (current) drug therapy; Z91.013 Allergy to seafood

== ENCOUNTER 2019-08-09 12:38 | Emergency (ER) | payer OTHER ==
[~2019-08-09] VITALS: Ht 182.9 cm; Wt 90.7 kg
[2019-08-09 13:06] LABS: ABSOLUTE NEUTROPHILS 2.2 thou/uL (1.4-8.2); BASOPHILS 1.2 % (0.0-2.0); EOSINOPHILS 2.4 % (0.0-3.0); HEMATOCRIT 31.6 % (42.0-52.0); HEMOGLOBIN 10.2 gm/dL (14.0-18.0); LYMPHOCYTES 30.3 % (24.0-44.0); MCH 30.8 pg (26.0-34.0); MCHC 32.3 g/dL (28.0-37.0); MCV 95.6 fL (80.0-100.0); MONOCYTES 5.3 % (1.0-8.0); PLATELET COUNT 254 thou/uL (150-400); POLYS 60.8 % (36.0-66.0); RDW 15.8 % (10.5-14.5); WBC 3.6 thou/uL (4.0-11.0)
[2019-08-09 13:14] LABS: CALCIUM 8.9 mg/dL (8.5-10.1); CREATININE 4.7 mg/dL (0.7-1.3); POTASSIUM 5.2 mmol/L (3.5-5.1)
[2019-08-09 13:23] LABS: TROPONIN-I 0.07 ng/mL (<0.06)
[2019-08-09 14:50] VITALS: BP 168/88
--- NOTE | 2019-08-10 07:59 | EKG ---
[facility] [place] [address] [place] [address] ELECTROCARDIOGRAM REPORT Name: MONET L[address] Room #: DEP [facility]#: [id number] Admission: 08/09/19 Attend Phys: Discharge: 08/09/19 Date of : 83 Report #: [id number] THIS REPORT FOR: cc: JERAMIE - Litzy family physician/PCP JERAMIE - Litzy family physician/PCP Facundo Polanco MD [facility] THIS REPORT FOR: //name// [facility] ED Test Date: 2019-08-09 Test Time: 12:43:30 Pat Name: MONET L[address] Department: Room: Gender: Knotter Hand: ESHEETS : 1985 Requested By: Silvano Bradley Order Number: [id number] MD: Facundo Polanco Measurements Intervals [place] Rate: 185 P: 0 [place]: QRS: 151 QRSD: 103 T: -39 QT: 284 QTc: 499 Interpretive Statements Supraventricular tachycardia Right axis deviation ST and T wave abnormality Prolonged QT interval Compared to ECG 07/15/2019 23:00:59 Heart rate has increased Electronically Signed On 08-10-2019 7:58:38 CDT by Facundo Polanco [email or web address] <ELECTRONICALLY SIGNED> By: Facundo Polanco MD, [facility] 08/10/19 0758 1243 1243 Facundo Polanco MD, [facility] /EPI
--- NOTE | 2019-08-10 08:00 | EKG ---
[facility] [place] [address] ELECTROCARDIOGRAM REPORT Name: MONET L[address] Room #: DEP [facility]#: [id number] Admission: 08/09/19 Attend Phys: Discharge: 08/09/19 Date of : 83 Report #: [id number] THIS REPORT FOR: cc: JERAMIE - Litzy family physician/PCP JERAMIE - Litzy family physician/PCP Facundo Polanco MD [facility] THIS REPORT FOR: //name// [facility] ED Test Date: 2019-08-09 Test Time: 12:50:04 Pat Name: MONET LANE Department: Room: Gender: Bag Patcher: ESHEETS : 1985 Requested By: Silvano Bradley Order Number: [id number] MD: Facundo Polanco Measurements Intervals [place] Rate: 101 P: 51 [place]: 180 QRS: -15 QRSD: 83 T: 62 QT: 361 QTc: 468 Interpretive Statements Sinus tachycardia Leftward axis Poor R wave progression Compared to ECG 07/15/2019 23:00:59 Sinus tachycardia has replaced supraventricular tachycardia Electronically Signed On 08-10-2019 7:59:49 CDT by Facundo Polanco [email or web address] <ELECTRONICALLY SIGNED> By: Facundo Polanco MD, [facility] 08/10/19 0759 1250 1250 Facundo Polanco MD, [facility] /EPI
== END 2019-08-09 14:40 | disposition home or self-care (01) ==
LOC: ER 12:38
PROVIDERS: Emergency Medicine
DX: I47.1 Supraventricular tachycardia (principal); E10.22 Type 1 diabetes mellitus with diabetic chronic kidney disease; I12.0 Hypertensive chronic kidney disease with stage 5 chronic kidney disease or end stage renal disease; N18.6 End stage renal disease; E87.5 Hyperkalemia; E78.00 Pure hypercholesterolemia, unspecified; R79.89 Other specified abnormal findings of blood chemistry; Z99.2 Dependence on renal dialysis; Z79.899 Other long term (current) drug therapy; Z79.4 Long term (current) use of insulin; Z91.013 Allergy to seafood

== ENCOUNTER 2019-08-14 18:48 | Inpatient (IN) | payer OTHER ==
[~2019-08-14] VITALS: Ht 182.9 cm; Wt 97.5 kg
[2019-08-14 18:58] VITALS: BP 198/115
[2019-08-14 19:46] LABS: HEMATOCRIT 27.4 % (42.0-52.0); HEMOGLOBIN 9.1 gm/dL (14.0-18.0); MCH 31.6 pg (26.0-34.0); MCHC 33.3 g/dL (28.0-37.0); MCV 94.9 fL (80.0-100.0); PLATELET COUNT 221 thou/uL (150-400); RBC 2.88 mil/uL (4.50-6.00); RDW 16.8 % (10.5-14.5)
[2019-08-14 20:23] LABS: ABSOLUTE NEUTROPHILS 3.6 thou/uL (1.4-8.2); ANISOCYTOSIS 1+
[2019-08-14 20:25] LABS: CALCIUM 8.3 mg/dL (8.5-10.1); CREATININE 6.3 mg/dL (0.7-1.3)
[2019-08-14 20:31] LABS: ALBUMIN 2.6 g/dL (3.4-5.0); TOTAL BILIRUBIN 0.7 mg/dL (0.2-1.0); TOTAL PROTEIN 7.5 g/dL (6.4-8.2)
[2019-08-14 22:20] VITALS: BP 208/113
[2019-08-14 22:48] VITALS: BP 187/107
[2019-08-14 23:00] VITALS: BP 184/88
[2019-08-14 23:15] VITALS: BP 177/86
[2019-08-15] VITALS (61 sets, daily range): BP systolic 120–187; BP diastolic 54–116
--- NOTE | 2019-08-15 08:00 | NUR ---
ASSUMED CARE OF PATIENT AT 2229. PT COMPLAINT OF ABDOMINAL PAIN RELIEVED BY PAIN MEDICATION. ON CARDIEN RESPONDING WELL. PT ABLE TO MAKE NEEDS KNOWN. PATIENT STABLE WILL CONTINUE TO MONITOR.
[2019-08-15 09:00] LABS: HDL CHOLESTEROL 51 mg/dL (>40); TRIGLYCERIDE 62 mg/dL (<150); VLDL 12 mg/dL (<40)
[2019-08-15 09:26] LABS: CHOLESTEROL 105 mg/dL (<200); LDL CHOLESTEROL 42 mg/dL (<100); TC:HDL 2.1 Ratio (Not establshd)
--- NOTE | 2019-08-15 10:02 | EKG ---
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 Market Clerk: SHERYL : 1985 Requested By: Silvano Bradley Order Number: [id number] MD: Facundo Polanco Measurements Intervals [place] Rate: 107 P: 27 [place]: 153 QRS: -29 QRSD: 88 T: 94 QT: 364 QTc: 486 Interpretive Statements Poor R wave progression Nonspecific T wave abnormality Compared to ECG 08/09/2019 12:50:04 No significant change was found Electronically Signed On 08-15-2019 10:01:34 CDT by Facundo Polanco [email or web address] <ELECTRONICALLY SIGNED> By: Facundo Polanco MD, [facility] 08/15/19 1001 22 22 Facundo Polanco MD, [facility] /EPI
[2019-08-15 12:22] LABS: ABSOLUTE NEUTROPHILS 3.4 thou/uL (1.4-8.2); BASOPHILS 0.9 % (0.0-2.0); HEMATOCRIT 26.9 % (42.0-52.0); LYMPHOCYTES 26.3 % (24.0-44.0); MCH 31.5 pg (26.0-34.0); MCHC 33.4 g/dL (28.0-37.0); MCV 94.5 fL (80.0-100.0); MONOCYTES 4.4 % (1.0-8.0); PLATELET COUNT 232 thou/uL (150-400); POLYS 65.4 % (36.0-66.0); RBC 2.84 mil/uL (4.50-6.00); WBC 5.3 thou/uL (4.0-11.0)
[2019-08-15 12:27] LABS: CALCIUM 8.1 mg/dL (8.5-10.1); MAGNESIUM 2.2 mg/dL (1.8-2.4); POTASSIUM 4.6 mmol/L (3.5-5.1)
[2019-08-15 12:30] LABS: CREATININE 7.5 mg/dL (0.7-1.3)
--- NOTE | 2019-08-15 18:34 | NUR ---
ASSUMED CARE @ 0700 08/15/19, PT ASSESSMENTS AND VSS COMPLETE PER ICU PROTOCOL. DR OSMAN HERE TO ROUND THIS AM, ORDERS FOR DIALYSIS TODAY PLACED. CARDENE IN PLACE TO KEEP SBP LESS THAN 160 @ START OF SHIFT, CARDENE OFF @ 1200. HD COMPLETED, 5L OFF, NO COMPLICATIONS. CCU ORDERS PLACED PER DR FLORES, WILL CONTINUE TO MONITOR.
[2019-08-16] VITALS (9 sets, daily range): BP systolic 151–189; BP diastolic 84–110
[2019-08-16 01:06] LABS: HEP B SURFACE Ab(ANTI-HBS Non Reactive (()); HEPATITIS B SURFACE AG Negative (Negative)
--- NOTE | 2019-08-16 04:13 | NUR ---
PT WAS HYPOGLYCEMIC (48) AT HS BLOOD SUGAR CHECK. 1 AMP OF D50 GIVEN AND PT ALSO REQUESTED CONNIE AND GELLO. BG CAME UP TO 160. PT COMPLAINED OF PAIN IN HIS ABDOMEN WHEN HE BRIEFLY WOKE UP & REQUESTED FOR MORPHINE. RN TOLD PT, TRICIA ROMERO IS NOT WANTING TO HAVE PT ON FREQUENT MORPHINE ADM. PT THEN FELL BACK ASLEEP AND SLEPT WELL FOR MOST OF THE NOC. NO FURTHER COMPLAINTS. LAB CAME THIS AM TO DRAW BLOOD BUT WAS UNSUUCESSFUL, RN ATTEMPTED WELL BUT TO NO AVAIL. WILL DRAW LABS DURING DIALYSIS TODAY. BP SYSTOLIC <160. PT IS STABLE, WILL CONTINUE TO CLOSELY MONITOR.
--- NOTE | 2019-08-16 07:37 | HC ---
[facility] [place] [address] CONSULTATION Name: MON[address] JR Room #: 243-P ADM IN M.R.#: [id number] Admission: 08/14/19 Attend Phys: Rich Arellano MD Discharge: Date of : 83 Report #: [id number] THIS REPORT FOR: cc: JERAMIE - No family physician/PCP JERAMIE - No family physician/PCP Kanu Torrez MD ~ CC: Rich BOBO physician/PCP DATE OF SERVICE: 08/15/2019 NEPHROLOGY CONSULTATION REASON FOR CONSULTATION: End-stage renal disease requiring hemodialysis. HISTORY OF PRESENT ILLNESS: This is a 34-year-old male well known to this service. He has frequent hospitalizations here at [facility]. He presented yesterday to the Emergency Room complaining of abdominal pain, which is a frequent complaint. He has also had nausea and vomiting. He was put into the ICU and put on regular doses of morphine, so he is very sleepy right now and very comfortable. From a dialysis standpoint, the patient has end-stage renal disease and is a chronic hemodialysis patient. He is frequently very hypertensive. He states he went to dialysis yesterday. [facility] [place]. He states he presented there, 13 kilograms above his target weight. He says he had 6 liters of ultrafiltration. Currently, denies dyspnea, but he is very sleepy related to his morphine that has been administered. I would note that he recently has been in the Emergency Room 5 days ago on 08/09/2019, prior to that on 07/15/2019, prior to that on 07/07/2019, prior to that, he was hospitalized for several days on around 06/26/2019 and prior to that, 06/17/2019, 06/13/2019, 06/09/2019. This makes 8 different Emergency Room visits for the same problems in the past 2 months. PAST MEDICAL HISTORY: End-stage renal disease due to diabetes and hypertension. He has chronic recurring abdominal pain, gastroparesis, recurrent nausea and vomiting as has been well described in the past. He has had diabetes since age 17. He has a right upper arm brachiobasilic vein transposition fistula in place, which continues to be as dialysis access. His hypertension requires several medications plus volume control and it has been demonstrated in the past that we can control his pressure with volume here in the hospital. MEDICATIONS: Reported as carvedilol 12.5 mg b.i.d., hydralazine 25 mg t.i.d., amlodipine 10 mg daily. Also, looks like he has had some clonidine. Also, metoclopramide. I am sure he gets additional medications at dialysis, but I do not have those records. ALLERGIES: No known medical allergies. [address] [address] CONSULTATION Name: [address] L[address] Room #: 243-P [facility] IN M.R.#: [id number] Admission: 08/14/19 Attend Phys: Rich Arellano MD Discharge: Date of : 83 Report #: [id number] SOCIAL HISTORY: The patient is single, lives in [place], [place]. He is medically disabled. REVIEW OF SYSTEMS: Currently, is comfortable, says he had his usual nausea, vomiting, abdominal pain. No diarrhea. Unaware of any fever. Has no dyspnea. He says he tolerated dialysis fine. In fact, he says he had multiple dialysis treatments last week, more than his usual because of his high volume overload state. PHYSICAL EXAMINATION: GENERAL: A 34-year-old male seen in the Intensive Care Unit. On a Cardene drip. VITAL SIGNS: Current blood pressure 149/74, heart rate is 110, temperature 99.1, oxygen saturation 95%. HEENT: Shows pupils are equal and reactive. Sclerae nonicteric. Oral mucosa is moist. NECK: Veins are not distended. CHEST: Clear bilaterally. CARDIOVASCULAR: Heart has a regular rate and rhythm with an S4 gallop. ABDOMEN: Has normoactive bowel sounds, is nontender. EXTREMITIES: Show no lower extremity edema. He has a right upper arm fistula in place. It has active flow. LABORATORY DATA: Sodium 128, potassium 5.0, chloride 88, bicarbonate 35, BUN 41, creatinine 6.3, glucose 354, AST 42, ALT 43, calcium 8.3, magnesium 2.3. White count 5.0, hemoglobin 9.1, hematocrit 27.4, platelets 221,000, normal differential on the white count. I reviewed his chest x-ray from the Emergency Room. It shows some cardiomegaly and diffuse vascular fullness as well as a bit of fluid in the fissures. ASSESSMENT: 1. End-stage renal disease with uncontrolled hypertension, volume overload. It sounds like he had a massive amount of ultrafiltration yesterday with dialysis as an outpatient. I have talk to him about this and we will dialyze him again today with more ultrafiltration. Once we get his volume down, his blood pressure will get better as it usually does. At that point, we can get him off the Cardene drip. Obviously, with his amount of volume overload that has been having, his outpatient control of intake is not good at all. This will need some further work. 2. Hypertension, volume related in his end-stage renal disease patient. If he kept his intake down, he would require much less in the way of antihypertensives, which obviously not working well anyway. 3. Longstanding diabetes with gastroparesis. Continued coming in.8 times over the past 2 months for this problem. Unfortunately, he gets very comfortable in [facility] [address] [place] [address] CONSULTATION Name: ZEN LANEAnnika De León Room #: 243-P [facility] IN .R.#: [id number] Admission: 08/14/19 Attend Phys: Rich Arellano MD Discharge: Date of : 83 Report #: [id number] the hospital with the morphine that he has given, concerned about ongoing rewards that he is getting for come to the Emergency Room with the same abdominal pain. 4. Anemia of end-stage renal disease, managed at the outpatient dialysis unit. 5. Ongoing issues with dietary compliance. PLAN: 1. I will dialyze him today with 5 liters of ultrafiltration. I have called the dialysis nurse. 2. During that dialysis, we can get him off his Cardene drip. 3. We would back off on the ongoing regular administration of morphine. 4. We will follow along in the care of this patient. <ELECTRONICALLY SIGNED> By: Kanu Torrez MD 08/16/19 0737 0956 1535 Kanu Torrez MD /nt
--- NOTE | 2019-08-16 07:58 | EKG ---
[facility] [place] [address] ELECTROCARDIOGRAM REPORT Name: MONET L[address] Room #: 243-P ADM IN M.R.#: [id number] Admission: 08/14/19 Attend Phys: Rich Arellano MD Discharge: Date of : 83 Report #: [id number] THIS REPORT FOR: cc: JERAMIE - No family physician/PCP FAM - No family physician/PCP Facundo Polanco MD [facility] THIS REPORT FOR: //name// [facility] Test Date: 2019-08-16 Test Time: 07:33:45 Pat Name: MONET LANE Department: Room: 243 P Gender: M Vice President Lending: Kati EVANS : 1985 Requested By: Facundo Polanco Order Number: [id number] MD: Facundo Polanco Measurements Intervals [place] Rate: 86 P: 37 [place]: 159 QRS: -37 QRSD: 90 T: 122 QT: 400 QTc: 479 Interpretive Statements Sinus rhythm Poor R wave progression T wave abnormality, consider lateral ischemia Compared to ECG 08/14/2019 20:23:04 No significant change was found Electronically Signed On 08-16-2019 7:57:43 CDT by Facundo Polanco [email or web address] <ELECTRONICALLY SIGNED> By: Facundo Polanco MD, [facility] 08/16/19 0757 0733 Facundo Polanco MD, [facility] /EPI
--- NOTE | 2019-08-16 08:28 | NUR ---
ASSUMED CARE OF PTR AT 0700, PT IS A/O TIMES 4 AND A GCS OF 15. PT WITH STABLE VSS. HE IS AFIBRILE. PT B/P SLIGHTLY HIGH AND BLOOD PRESSURE MEDS ADMINISTERED. PT CALLED THIS NURSE AND INFORMED HER THAT HE WANTED TO LEAVE AMA. DR FLORES CALLED AND NOTIFIED. INFORMATION AND WHY PATIENT SHOULD NOT LEAVE AMA GIVEN TO PATIENT INCLUDING THE MEDICAL CARE THAT HE STILL REQUIRES. PT CONT TO INSIST ON WANTING TO LEAVE. MEDICAL EQUIPMENTS DISCONNECTED FROM PT AND IV REMOVED. AMA FORM SIGNED AND PLACED IN CHART. PT LEFT AT 0817. PAN CLEANER AND CHARGE NURSE NOTIFIED.
== END 2019-08-16 08:17 | disposition left against medical advice (07) | DRG 291 ==
LOC: ER 18:48 → EROBS 22:12 → ICU 22:12
PROVIDERS: Emergency Medicine; Internal Medicine Nephrology; Nurse Practitioner; Nurse Practitioner Family; ADMIT Hospitalist; ATTEND Hospitalist
PROC: 5A1D70Z Performance of Urinary Filtration, Intermittent, Less than 6 Hours Per Day (ICD-10-PCS; principal; 2019-08-16)
DX: I13.2 Hypertensive heart and chronic kidney disease with heart failure and with stage 5 chronic kidney disease, or end stage renal disease (principal); N18.6 End stage renal disease; I50.33 Acute on chronic diastolic (congestive) heart failure; I16.1 Hypertensive emergency; K31.84 Gastroparesis; I16.0 Hypertensive urgency; E78.5 Hyperlipidemia, unspecified; R79.89 Other specified abnormal findings of blood chemistry; E10.43 Type 1 diabetes mellitus with diabetic autonomic (poly)neuropathy; E10.22 Type 1 diabetes mellitus with diabetic chronic kidney disease; Z99.2 Dependence on renal dialysis; Z79.891 Long term (current) use of opiate analgesic; Z79.899 Other long term (current) drug therapy; Z79.4 Long term (current) use of insulin; Z91.013 Allergy to seafood
CPT/HCPCS: 10078; 10203; 32100

== ENCOUNTER 2019-09-03 01:59 | Emergency (ER) | payer OTHER ==
[~2019-09-03] VITALS: Ht 182.9 cm; Wt 90.7 kg
[2019-09-03 02:48] LABS: ABSOLUTE NEUTROPHILS 3.8 thou/uL (1.4-8.2); BASOPHILS 1.2 % (0.0-2.0); EOSINOPHILS 1.4 % (0.0-3.0); HEMATOCRIT 26.3 % (42.0-52.0); HEMOGLOBIN 8.5 gm/dL (14.0-18.0); LYMPHOCYTES 16.3 % (24.0-44.0); MCH 31.1 pg (26.0-34.0); MCHC 32.5 g/dL (28.0-37.0); MCV 95.6 fL (80.0-100.0); MONOCYTES 3.6 % (1.0-8.0); PLATELET COUNT 103 thou/uL (150-400); POLYS 77.5 % (36.0-66.0); RBC 2.75 mil/uL (4.50-6.00); RDW 16.7 % (10.5-14.5)
[2019-09-03 03:01] LABS: CALCIUM 8.1 mg/dL (8.5-10.1); CREATININE 6.9 mg/dL (0.7-1.3); MAGNESIUM 2.4 mg/dL (1.8-2.4)
[2019-09-03 03:05] LABS: POTASSIUM 5.5 mmol/L (3.5-5.1)
[2019-09-03 04:45] VITALS: BP 240/131
--- NOTE | 2019-09-03 16:22 | EKG ---
[facility] [place] [address] ELECTROCARDIOGRAM REPORT Name: MONET LANE Room #: DEP [facility]#: [id number] Admission: 09/03/19 Attend Phys: Discharge: 09/03/19 Date of : 83 Report #: [id number] THIS REPORT FOR: cc: FAM - Family physician unknown FAM - Family physician unknown Facundo Polanco MD [facility] THIS REPORT FOR: //name// [facility] ED Test Date: 2019-09-03 Test Time: 02:10:27 Pat Name: MONET LANE Department: Room: Gender: Pets Salesperson: shay prabhakar : 1985 Requested By: Donnie Avalos Order Number: [id number] MD: Facundo Polanco Measurements Intervals [place] Rate: 99 P: 25 NH: 173 QRS: -28 QRSD: 87 T: 99 QT: 371 QTc: 477 Interpretive Statements Sinus rhythm Borderline left axis deviation Nonspecific T abnormalities, lateral leads Borderline prolonged QT interval Compared to ECG 08/16/2019 07:33:45 T wave abnormality is less prominent Electronically Signed On 09-03-2019 16:22:09 CDT by Facundo Polanco [email or web address] <ELECTRONICALLY SIGNED> By: Facundo Ploanco MD, [facility] 09/03/19 1622 9 9 Facundo Polanco MD, [facility] /EPI
== END 2019-09-03 04:45 | disposition home or self-care (01) ==
LOC: ER 01:59
PROVIDERS: Emergency Medicine
DX: R10.84 Generalized abdominal pain (principal); R11.2 Nausea with vomiting, unspecified; I12.0 Hypertensive chronic kidney disease with stage 5 chronic kidney disease or end stage renal disease; E11.22 Type 2 diabetes mellitus with diabetic chronic kidney disease; N18.6 End stage renal disease; Z99.2 Dependence on renal dialysis; Z91.013 Allergy to seafood; Z88.8 Allergy status to other drugs, medicaments and biological substances; Z79.899 Other long term (current) drug therapy

== ENCOUNTER 2019-09-16 14:20 | Inpatient (IN) | payer OTHER ==
[~2019-09-16] VITALS: Ht 182.9 cm; Wt 107.5 kg
[2019-09-16 14:21] VITALS: BP 179/104
[2019-09-16 14:50] LABS: ABSOLUTE NEUTROPHILS 3.6 thou/uL (1.4-8.2); BASOPHILS 0.5 % (0.0-2.0); EOSINOPHILS 0.4 % (0.0-3.0); HEMATOCRIT 28.6 % (42.0-52.0); HEMOGLOBIN 9.4 gm/dL (14.0-18.0); LYMPHOCYTES 18.5 % (24.0-44.0); MCH 31.1 pg (26.0-34.0); MONOCYTES 5.2 % (1.0-8.0); PLATELET COUNT 161 thou/uL (150-400); POLYS 75.4 % (36.0-66.0); RBC 3.04 mil/uL (4.50-6.00); RDW 16.7 % (10.5-14.5); WBC 4.7 thou/uL (4.0-11.0)
[2019-09-16 15:04] LABS: APTT 28.3 Seconds (24.5-32.8); INR 1.1; PROTIME 11.7 Seconds (9.3-11.4)
[2019-09-16 15:11] LABS: CALCIUM 8.3 mg/dL (8.5-10.1); CREATININE 5.5 mg/dL (0.7-1.3); POTASSIUM 4.5 mmol/L (3.5-5.1)
[2019-09-16 15:15] LABS: ALBUMIN 2.7 g/dL (3.4-5.0); MAGNESIUM 2.2 mg/dL (1.8-2.4); TOTAL PROTEIN 7.7 g/dL (6.4-8.2); TROPONIN-I 0.07 ng/mL (<0.06)
[2019-09-16] MEDS ORDERED: OXYCODONE HCL E10 MG PO (16:06)
[2019-09-16] MEDS ORDERED: METOCLOPRAMIDE10 MG PO (16:07)
[2019-09-17 02:44] VITALS: BP 182/97
[2019-09-17 04:43] LABS: HEMOGLOBIN 9.3 gm/dL (14.0-18.0); MCH 30.1 pg (26.0-34.0); MCHC 32.1 g/dL (28.0-37.0); MCV 93.7 fL (80.0-100.0); RBC 3.09 mil/uL (4.50-6.00); RDW 16.6 % (10.5-14.5); WBC 11.3 thou/uL (4.0-11.0)
[2019-09-17 05:07] LABS: CALCIUM 8.6 mg/dL (8.5-10.1); CREATININE 6.4 mg/dL (0.7-1.3); POTASSIUM 4.1 mmol/L (3.5-5.1); TROPONIN-I 0.14 ng/mL (<0.06)
--- NOTE | 2019-09-17 08:02 | NUR ---
pt admitted this morning. alert and oriented. Reports abdominal and chest pain that "does not radiate, and does not get alleviated by nitro." Morphine x1 prn given. admission complete. verbal consent obtained. Cardene started and maintained at 5ml/hr. Bp in 140s and 150s. pt goes to dialysis [facility]. Encouraged to limit water intake but pt does not adhere to commands, drinking out of the sink. pt otherwise admitted in stable condition. assessments as documented. Will continue to monitor
--- NOTE | 2019-09-17 08:58 | NUR ---
chart review. cm unable to visit with pt via phone call. per chart pt just left another hospital [facility] yesterday and is know here. noted noncompliance during past hospital stays here. " lives with family. independent. goes to [facility] location [facility]"/chart. pt bp elevated. going to have dialysis today. pending covid r/o.
--- NOTE | 2019-09-17 09:15 | EKG ---
[facility] [place] [address] ELECTROCARDIOGRAM REPORT Name: MONET LANE Room #: 244-P ADM IN M.R.#: [id number] Admission: 09/16/19 Attend Phys: Maribel Garnica MD Discharge: Date of : 83 Report #: [id number] THIS REPORT FOR: cc: FAM - Family physician unknown FAM - Family physician unknown Facundo Polanco MD [facility] THIS REPORT FOR: //name// [facility] ED Test Date: 2019-09-16 Test Time: 14:22:48 Pat Name: MONET LANE Department: Room: [facility] Gender: M Hiv/Aids Care Nurse: [facility] : 1985 Requested By: Goran Kwan Order Number: [id number] MD: Facundo Polanco Measurements Intervals [place] Rate: 181 P: 0 CA: 32 QRS: -26 QRSD: 86 T: 92 QT: 300 QTc: 521 Interpretive Statements Supraventricular tachycardia Prolonged QT interval Compared to ECG 09/03/2019 02:10:27 Heart rate has increased Electronically Signed On 09-17-2019 9:15:05 CDT by Facundo Polanco [email or web address] <ELECTRONICALLY SIGNED> By: Facundo Polanco MD, [facility] 09/17/19 0915 1422 1422 Facundo Polanco MD, [facility] /EPI
--- NOTE | 2019-09-17 09:16 | EKG ---
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 : 1985 Requested By: Goran Kwan Order Number: [id number] MD: Facundo Polanco Measurements Intervals [place] Rate: 115 P: 26 OK: 148 QRS: -24 QRSD: 85 T: 93 QT: 347 QTc: 480 Interpretive Statements Sinus tachycardia Borderline left axis deviation RSR' in V1 or V2, probably normal variant Borderline repolarization abnormality Borderline prolonged QT interval Compared to ECG 09/16/2019 14:22:48 SVT is no longer present Electronically Signed On 09-17-2019 9:16:08 CDT by Facundo Polanco [email or web address] <ELECTRONICALLY SIGNED> By: Facundo Polanco MD, [facility] 09/17/19 0916 145 145 Facundo Polanco MD, [facility] /EPI
--- NOTE | 2019-09-17 09:28 | EKG ---
[facility] Sherri Bird [employer] [place] [address] ELECTROCARDIOGRAM REPORT Name: MONET L[address] Room #: 244- ADM IN M.R.#: [id number] Admission: 09/16/19 Attend Phys: Maribel Garnica MD Discharge: Date of : 83 Report #: [id number] THIS REPORT FOR: cc: FAM - Family physician unknown FAM - Family physician unknown Facundo Polanco MD [facility] THIS REPORT FOR: //name// [facility] Test Date: 2019-09-17 Test Time: 08:05:05 Pat Name: MONET L[address] Department: Room: 244 Gender: M Pediatric Assistant: OW : 1985 Requested By: Mile Beard Order Number: [id number] MD: Facundo Polanco Measurements Intervals [place] Rate: 101 P: 31 MN: 169 QRS: -15 QRSD: 86 T: 118 QT: 374 QTc: 485 Interpretive Statements Sinus tachycardia Poor R wave progression Borderline left axis deviation Nonspecific T abnormalities, lateral leads Borderline prolonged QT interval Baseline wander in lead(s) I,II,aVR Compared to ECG 09/16/2019 14:52:41 No significant change was found Electronically Signed On 09-17-2019 9:28:14 CDT by Facundo Polanco [email or web address] <ELECTRONICALLY SIGNED> By: Facundo Polanco MD, [facility] 09/17/19927 4 4 Facundo Polanco MD, [facility] /EPI
--- NOTE | 2019-09-17 12:54 | 2DMMODE ---
[facility] [place] [address] 2 D/M-MODE ECHOCARDIOGRAM Name: MONET LANE Room #: 244-P ADM IN M.R.#: [id number] Admission: 09/16/19 Attend Phys: Maribel Garnica MD Discharge: Date of : 83 Report #: [id number] THIS REPORT FOR: cc: FAM - Family physician unknown FAM - Family physician unknown Facundo Polanco MD [facility] ~ APPROVED REPORT Study performed: 09/17/2019 12:06:55 EXAM: Limited 2D, Doppler, and color-flow Echocardiogram Patient Location: ICU Room #: 244 Status: routine BSA: 2.24 HR: 108 bpm BP: 141/79 mmHg Rhythm: Tachycardia Other Information Study Quality: Good/Patient in COVID isolation Technically limited study due to Limited patient cooperation.. Indications SVT, elevated troponin. Hx: DM, HTN. 2D Dimensions IVSd: 18.46 (7-11mm) LVDd: 47.87 mm PWd: 18.82 (7-11mm) LVDs: 32.53 (25-40mm) Aortic Root: 32.91 mm Aortic Valve AoV Peak Swapnil.: 1.30 m/s AO Peak Gr.: 6.76 mmHg LVOT Max P.93 mmHg LVOT Max V: 1.11 m/s Pulmonary Valve PV Peak Swapnil.: 0.77 m/s PV Peak Gr.: 2.40 mmHg Tricuspid Valve TR Peak Swapnil.: 3.83 m/s RAP Estimate: 10.00 mmHg [facility] [address] [place] [address] 2 D/M-MODE ECHOCARDIOGRAM Name: MONET LANE Room #: 244-P ADM IN M.R.#: [id number] Admission: 09/16/19 Attend Phys: Maribel Garnica MD Discharge: Date of : 83 Report #: [id number] TR Peak Gr.: 59.00 mmHg PA Pressure: 69.00 mmHg Left Ventricle The left ventricle is normal size. Severe concentric left ventricular hypertrophy. Left ventricular systolic function is normal. LVEF is 55%. This study is not technically sufficient to allow evaluation of the LV diastolic function. Right Ventricle Right ventricle appears dilated and hypokinetic. Atria Left atrium is dilated. Right atrium is dilated. Aortic Valve The aortic valve is normal in structure. Trace aortic regurgitation. There is no aortic valvular stenosis. Mitral Valve Mild mitral annular calcification Mild mitral regurgitation. No evidence of mitral valve stenosis. Tricuspid Valve The tricuspid valve is normal in structure. Mild to moderate tricuspid regurgitation. Estimated PAP is 70mmHg. Pulmonic Valve The pulmonary valve is normal in structure. Trace pulmonic regurgitation. Great Vessels The aortic root is normal in size. IVC is dilated and collapses <50% with inspiration. Pericardium Small pericardial effusion. <Conclusion> Left ventricular systolic function is normal. Severe concentric left ventricular hypertrophy. LVEF is 55%. Right ventricle appears dilated and hypokinetic. Both atria are dilated. The aortic valve is normal in structure. Trace aortic regurgitation, no stenosis. [facility] [address] [place] [address] 2 D/M-MODE ECHOCARDIOGRAM Name: ZEN LANEAnnika De León Room #: 244-P [facility] IN .R.#: [id number] Admission: 09/16/19 Attend Phys: Maribel Garnica MD Discharge: Date of : 83 Report #: [id number] Mild mitral annular calcification. Mild mitral regurgitation. Mild to moderate tricuspid regurgitation. Estimated pulmonary artery pressure of 70mmHg. Small pericardial effusion. <ELECTRONICALLY SIGNED> By: Facundo Polanco MD, [facility] 09/17/19 1254 1254 1254 Facundo Polanco MD, FAC /INF
[2019-09-17 20:00] VITALS: BP 134/73
[2019-09-17 21:00] VITALS: BP 139/69
[2019-09-17 22:00] VITALS: BP 140/77
[2019-09-17 23:00] VITALS: BP 134/76
--- NOTE | 2019-09-18 01:23 | NUR ---
ASSUMED PT CARE AT 1900, PT IS SLEEPY, AND MOURNING IN PAIN UPON ASSESSMENT, SR ON THE MONITOR, C/O GENERALIZED ABDOMINAL PAIN, PAIN MEDICATION GIVEN PRN WITH PARTIAL RELIEF, MEDICATIONS GIVEN ORDERED, ASSESSMENTS CHARTED, VSS, PT HAD A TEMP 102.3, TYLENOL GIVEN BEFORE TRANSFER TO CCU, PT WAS TRANSFERRED TO CCU AROUND 2230, NO DISTRESS NOTED ON TRANSFER
--- NOTE | 2019-09-18 04:04 | NUR ---
PT TRANSFER FROM ICU, 2244. ALERT AD ORIENTED. LOOKS LETHERGIC AND C/O ABDOMINAL PAIN AND CHEST PAIN BUT RESTING OTHERWISE COMFORTABLE. SR ON THE MONITOR. FEVER DURING THE NIGHT. [id number] GIVEN. WILL CONTINUE TO MONITOR.
[2019-09-18 04:20] VITALS: BP 184/105
[2019-09-18 06:41] LABS: ABSOLUTE NEUTROPHILS 7.9 thou/uL (1.4-8.2); BASOPHILS 0.4 % (0.0-2.0); EOSINOPHILS 0.2 % (0.0-3.0); HEMATOCRIT 27.9 % (42.0-52.0); LYMPHOCYTES 7.7 % (24.0-44.0); MCH 30.6 pg (26.0-34.0); MCHC 32.3 g/dL (28.0-37.0); MCV 94.6 fL (80.0-100.0); MONOCYTES 5.8 % (1.0-8.0); PLATELET COUNT 158 thou/uL (150-400); POLYS 85.9 % (36.0-66.0); RBC 2.95 mil/uL (4.50-6.00); RDW 16.6 % (10.5-14.5); WBC 9.2 thou/uL (4.0-11.0)
[2019-09-18 06:57] LABS: ALBUMIN 2.5 g/dL (3.4-5.0); CALCIUM 8.1 mg/dL (8.5-10.1); PHOSPHORUS 4.7 mg/dL (2.5-4.9); POTASSIUM 4.6 mmol/L (3.5-5.1); TOTAL BILIRUBIN 1.6 mg/dL (0.2-1.0); TOTAL PROTEIN 7.5 g/dL (6.4-8.2)
[2019-09-18 06:58] LABS: CREATININE 5.3 mg/dL (0.7-1.3)
[2019-09-18 07:00] VITALS: BP 143/89
--- NOTE | 2019-09-18 10:10 | HC ---
[facility] [place] [address] CONSULTATION Name: MON[address] JR Room #: 210-P ADM IN M.R.#: [id number] Admission: 09/16/19 Attend Phys: Maribel Garnica MD Discharge: Date of : 83 Report #: [id number] THIS REPORT FOR: cc: [employer] - Family physician unknown FAM - Family physician unknown Min Macias MD ~ CC: [employer] unknown Maribel Garnica DATE OF SERVICE: 09/18/2019 INFECTIOUS DISEASE CONSULTATION ATTENDING PHYSICIAN: Maribel Garnica MD REASON FOR EVALUATION: Fevers. The patient with chronic abdominal pain, dialysis patient. HISTORY OF PRESENT ILLNESS: Chart reviewed, patient examined. This is a 34-year-old gentleman with known diabetes mellitus, has been complicated by end-stage renal disease. He is on thrice weekly hemodialysis. He does have chronic pain as well. He presented to the Emergency Room, was found to have atrial fibrillation with rapid ventricular rate. Chest x-ray did show cardiomegaly, noted he had a markedly elevated BNP as well. He subsequently developed temperature elevations to 102.9. It is unclear to him whether he has had fevers prior to his admission. He did admit to some chills and shakes. Blood cultures have been collected, empirically started on combination with vancomycin, piperacillin and tazobactam. He is afebrile this morning. Vital signs are relatively stable. He is maintained on ambient air. He does admit to cough. He noted COVID testing was negative. He states his appetite has been somewhat diminished as well. ALLERGIES: LISTED TO HALDOL. CURRENT MEDICATIONS: Include vancomycin, Zosyn, nicardipine, metoprolol, hydralazine, lorazepam, diltiazem CD, carvedilol, and amlodipine. PAST MEDICAL HISTORY: As noted above, diabetes mellitus, has been complicated by end-stage renal disease, on hemodialysis, has a right upper extremity fistula, history of pancreatitis, gastroparesis, hyperlipidemia, hypertension. SOCIAL HISTORY: Nonsmoker, no ethanol, utilizes some marijuana. FAMILY HISTORY: Noncontributory. REVIEW OF SYSTEMS: Otherwise, unremarkable 10-point review of systems. [address] [address] CONSULTATION Name: MON[address] LANE Room #: 210-P [facility] [place] [facility]#: [id number] Admission: 09/16/19 Attend Phys: Maribel Garnica MD Discharge: Date of : 83 Report #: [id number] PHYSICAL EXAMINATION: GENERAL: Appears reasonably well nourished. He is in [id number] distress secondary to pain. He is generally lucid. VITAL SIGNS: Temperature this morning 98.3, T-max overnight 102.9, pulse 92, respirations 18, blood pressure 143/89. SKIN: Warm, dry, no rashes, but some changes in lower extremities, venous stasis insufficiency. HEENT: Normocephalic. Extraocular muscles are intact. NECK: Supple. LUNGS: Generally clear to auscultation. HEART: Irregular, borderline tachycardic. ABDOMEN: Distended, no percussible tenderness, no peritoneal signs. GENITOURINARY: Deferred. RECTAL: Deferred. LABORATORY DATA: Sodium 132, potassium 4.6, chloride 95, bicarbonate is 30, anion gap of 7, BUN and creatinine 31 and 5.3, down from 6.4; glucose of 113. LFTs unremarkable except alkaline phosphatase of 205. Albumin 2.5, total protein 7.5. CBC: White count 9.2, H and H 9.0 and 27.9, platelets of 158. Coronavirus was negative. Troponin 0.09. ProBNP elevated at 59, 98 on admission. TSH 3.639. ASSESSMENT AND PLAN: Febrile illness in a patient that certainly is at risk for infectious complications. Blood cultures are negative thus far. We will continue to follow those. He does make a small amount of urine that certainly could be a complicated urinary tract infection. We will continue empiric therapy with the combination. At this point, he is not overtly toxic and see if he has any additional signs or symptoms that may help clarify the situation. We will add incentive spirometry. Increase activity as allowed. He has persistent fevers, we would consider additional imaging studies. <ELECTRONICALLY SIGNED> By: Min Macias MD 09/18/19 1010 0819 0947 Min Macias MD /nt
[2019-09-18 11:15] VITALS: BP 130/83
[2019-09-18 15:20] VITALS: BP 113/69
--- NOTE | 2019-09-18 16:36 | NUR ---
SLEEP INTERRUPTED. REQUESTS PAIN MEDICATION WHEN AVAILABLE. BLOOD CULTURES POSITIVE FOR GRAM POS COCCI, DR. CARDOZO INFORMED, ORDERS RECEIVED. TAKEN TO RADIOLOGY FOR CXR. ATTEMPTING TO VOID FOR A UA. TEMPS OF 38.4 AND 39.4. SR/ST PER TELE. WILL CONTINUE TO FOLLOW CLOSELY.
[2019-09-18 20:30] VITALS: BP 158/89
[2019-09-19 04:15] VITALS: BP 136/65
--- NOTE | 2019-09-19 05:23 | NUR ---
ASSUMED PT CARE AT 1900, ALERT AND ORIENTED, SR ON THE MONITOR, NO C/O CHEST PAIN, C/O ABDOMINAL PAIN, PAIN MEDICATIONS GIVEN, MEDICATIONS GIVENN PER APR, ASSESSMENTS CHARTED, REMAINED STABLE THROUGH THE NIGHT, WILL CONTINUE TO MONITOR
[2019-09-19 05:36] LABS: ABSOLUTE NEUTROPHILS 5.1 thou/uL (1.4-8.2); BASOPHILS 1.3 % (0.0-2.0); EOSINOPHILS 0.8 % (0.0-3.0); HEMATOCRIT 25.5 % (42.0-52.0); HEMOGLOBIN 8.3 gm/dL (14.0-18.0); LYMPHOCYTES 18.6 % (24.0-44.0); MCH 30.7 pg (26.0-34.0); MCHC 32.7 g/dL (28.0-37.0); MCV 93.8 fL (80.0-100.0); MONOCYTES 7.7 % (1.0-8.0); PLATELET COUNT 179 thou/uL (150-400); POLYS 71.6 % (36.0-66.0); RBC 2.72 mil/uL (4.50-6.00); RDW 16.4 % (10.5-14.5); WBC 7.2 thou/uL (4.0-11.0)
[2019-09-19 06:10] LABS: ALBUMIN 2.2 g/dL (3.4-5.0); CALCIUM 7.6 mg/dL (8.5-10.1); MAGNESIUM 2.1 mg/dL (1.8-2.4); PHOSPHORUS 5.4 mg/dL (2.5-4.9); POTASSIUM 4.9 mmol/L (3.5-5.1); TOTAL BILIRUBIN 1.1 mg/dL (0.2-1.0); TOTAL PROTEIN 6.9 g/dL (6.4-8.2)
[2019-09-19 06:15] LABS: CREATININE 6.8 mg/dL (0.7-1.3)
[2019-09-19 07:26] VITALS: BP 154/91
[2019-09-19 10:53] VITALS: BP 154/97
[2019-09-19 16:03] VITALS: BP 132/85
--- NOTE | 2019-09-19 17:51 | NUR ---
MOSTLY SLEEPS. REFUSES TO LEAVE HIS TELE ON. PULLS OUT HIS SALINE LOCK, REPLACED BY IV TEAM WITH ULTRASOUND. WILL CONTINUE TO FOLLOW.
[2019-09-20] VITALS (7 sets, daily range): BP systolic 121–156; BP diastolic 73–99
--- NOTE | 2019-09-20 02:11 | NUR ---
PT IS ALERT AND ORIENTED X4. TAKING PAIN MEDS COMPLAINS OF GENERAL PAIN. SLEEPS AFTER PAIN MEDS. PT PICKED AT HIS FISTULA SITE AND THEN THE AID CAME AND GOT ME QUICKLY WHEN I WENT BACK THERE APLYIED PRESSURE AND WAS SQUIRTING BLOOD EVERYWHERE. INFORM PT NOT TO BE PICKING AT THINGS. LUNGS ARE DIMINISHED. ABDOMEN IS ROUND BOWEL SOUNDS ABSENT. PLAN IS TO GET DIALYSIS. CALL LIGHT WITHIN REACH IF NEEDS ASSISTANCE PER NURSING.
[2019-09-20 08:02] LABS: ABSOLUTE NEUTROPHILS 3.7 thou/uL (1.4-8.2); BASOPHILS 0.7 % (0.0-2.0); EOSINOPHILS 0.2 % (0.0-3.0); HEMATOCRIT 24.6 % (42.0-52.0); HEMOGLOBIN 8.1 gm/dL (14.0-18.0); LYMPHOCYTES 11.4 % (24.0-44.0); MCH 30.3 pg (26.0-34.0); MCV 91.7 fL (80.0-100.0); MONOCYTES 4.8 % (1.0-8.0); PLATELET COUNT 175 thou/uL (150-400); POLYS 82.9 % (36.0-66.0); RBC 2.68 mil/uL (4.50-6.00); RDW 16.1 % (10.5-14.5); WBC 4.5 thou/uL (4.0-11.0)
[2019-09-20 08:22] LABS: ALBUMIN 2.2 g/dL (3.4-5.0); CALCIUM 7.4 mg/dL (8.5-10.1); MAGNESIUM 2.1 mg/dL (1.8-2.4); TOTAL PROTEIN 6.8 g/dL (6.4-8.2)
[2019-09-20 08:25] LABS: CREATININE 8.4 mg/dL (0.7-1.3)
--- NOTE | 2019-09-20 20:54 | NUR ---
PT CARE ASSUMED AT 0700. ASSESSMENT CHARTED. MEDICATION CHARTED. DIALYSIS PERFORMED; INTERRUPTED CT W/ CONTRAST BEVERAGE; PLACED IN PT FRIDGE NOC RN INFORMED.
[2019-09-21] VITALS (8 sets, daily range): BP systolic 129–152; BP diastolic 67–87
--- NOTE | 2019-09-21 04:38 | NUR ---
Assumed pt care at 1900. Pt is alert and oriented. No sign of distress noted in pt. Pt is laying in bed and is drowsy. Pt is constantly asking for pain medication and food to eat. Encourage pt to reduce PO intake as patient is a dialyisis pt. Assessment completed and documented. Scheduled meds administered to pt. Pain med administered upon request. No acute event overnight. Continue to monitor. No further needs at this time.
[2019-09-21 05:46] LABS: ABSOLUTE NEUTROPHILS 1.9 thou/uL (1.4-8.2); BASOPHILS 0.8 % (0.0-2.0); EOSINOPHILS 2.1 % (0.0-3.0); HEMATOCRIT 24.3 % (42.0-52.0); HEMOGLOBIN 8.2 gm/dL (14.0-18.0); LYMPHOCYTES 34.6 % (24.0-44.0); MCH 30.5 pg (26.0-34.0); MCHC 33.6 g/dL (28.0-37.0); MCV 90.9 fL (80.0-100.0); MONOCYTES 8.1 % (1.0-8.0); PLATELET COUNT 181 thou/uL (150-400); POLYS 54.4 % (36.0-66.0); RBC 2.67 mil/uL (4.50-6.00); RDW 16.5 % (10.5-14.5); WBC 3.5 thou/uL (4.0-11.0)
[2019-09-21 06:02] LABS: CALCIUM 7.4 mg/dL (8.5-10.1); POTASSIUM 4.1 mmol/L (3.5-5.1)
--- NOTE | 2019-09-21 17:18 | NUR ---
Patien with need to transfer to hospital with vascular sx. Sp with [facility] transfer center who reports [facility] is full cannot accept. [facility] is not accepting[facility] checking with [facility]. Discussed with patient offered to check [facility] and [facility]. Patient would not wake enough to have any conversation or agree to any inquiry. Updated RN. Cont to plan to transfer patient.
--- NOTE | 2019-09-21 18:44 | NUR ---
PT CARE ASSUMED AT 0700. ASSESSMENT CHARTED. MEDICATION CHARTED. PT TO CT ABD WITH ORAL CONTRAST AT 1300. PT REGULARLY REQUESTS PAIN MEDICATION. PT ACCEPTED FRO TRANSFER TO [facility]; HOWEVER THERE IS A WAIT LIST SO TRANSFER MAY BE LATER TONIGHT OR TOMORROW. PT PICKED AT DIALYSIS FISTULA AT 1820; PRESSURE HELD AND GAUZE AND LG TEGADERM PLACED; OF 184 NO DRAINAGE. MORPHINE AND LORAZEPAM GIVEN PER PT REQUEST.
[2019-09-22 05:35] VITALS: BP 138/77
--- NOTE | 2019-09-22 05:38 | NUR ---
Assumed pt care at 1900. Pt is sleeping, and is arousable. No sign of distress noted in pt. Pt is stable through the night. Fall precaution in place. Assessment completed and documented. Scheduled meds administered to pt. It was noted during the shift that the pt complained of nausea and he vomited cough ground emesis twice, Supervisor Beater Room notified. Spoke to [facility] on updates about the patient
[2019-09-22 08:00] VITALS: BP 162/67
--- NOTE | 2019-09-22 11:38 | NUR ---
continue to inquire into transfer to hosp for vascular sx. Sp with [facility] they are not accepting of patient due to census. Dr Greene sp with [facility] who is unable to accept due to censu. Sp with [facility] and requested they check with [facility]. Updated phys.
[2019-09-22 12:05] VITALS: BP 157/94
[2019-09-22 12:32] LABS: CALCIUM 7.4 mg/dL (8.5-10.1); POTASSIUM 4.4 mmol/L (3.5-5.1)
[2019-09-22 12:35] LABS: CREATININE 7.5 mg/dL (0.7-1.3)
--- NOTE | 2019-09-22 13:51 | NUR ---
GI Lab Note: Patient brought to pre-op area for planned EGD, found to have fever via temporal scan T101.1, took oral T102.2 to verify fever. Anesthesia notified, GI DIESEL TRUCK DRIVER notified. Patient coughing, occasionally spitting up small amt of rust-colored liquid. He became restless and repeatedly stated "I don't want to do this," trying to get out of bed, pulling off mask and monitor cables. We successfully coaxed the patient back into bed, transported back to CCU with mask on. Bed alarm on, call light and phone in reach. RN Izzy updated.
[2019-09-22 14:10] VITALS: BP 112/75
[2019-09-22 15:00] VITALS: BP 127/80
[2019-09-22] MEDS ORDERED: MIRALAX17 GM PO (16:38)
[2019-09-22] MEDS ORDERED: AMITIZA 24 MCG24 MC1 PO (16:38)
[2019-09-22] MEDS ORDERED: CARDIZEM60 MG PO (16:38)
[2019-09-22] MEDS ORDERED: CALCIUM ACETAT667 MG PO (16:38)
[2019-09-22] MEDS ORDERED: COREG25 MG PO (16:38)
[2019-09-22] MEDS ORDERED: NOVOLOG100 UNIT/1 SUBQ (16:38)
[2019-09-22] MEDS ORDERED: Protonix 40 MG VIAL IV PUSH (16:38)
[2019-09-22] MEDS ORDERED: NORVASC10 MG PO (16:38)
[2019-09-22] MEDS ORDERED: NAFCILLIN 2 GM A2 G1 IV (16:47)
--- NOTE | 2019-09-22 16:58 | NUR ---
ASSUMMED PT CARE AT APPROXIMATELY 0700. PT DROWSY AND SLEEPING AT BEGINNING OF SHIFT. INFORMED DR. ACOSTA. PAIN MEDICATIONS DC. PT A&O X3. FREQUENT REORIENTATION PROVIDED. AT APPROXIMATELY 1200, AFTER EGD, PT AWAKE AND ALERT. PT TRANSFERING TO [facility] DUE TO NEEDING VASULAR SERVICES FOR FISTULA. PT SCHEDULED FOR EGD DUE TO VOMITING COFFEE GROUND EMESIS OVERNIGHT. EGD COULD NOT BE COMPLETED DUE TO PT HAVING FEVER IN GI LAB PER REPORT FROM RN. PT AFEBRILE. VITAL SIGNS STABLE. PT COMPLAINED OF NAUSEA. PT RECEIVED ANTI-EMETIC. PT STATED ANTI-EMETIC RELEIVED NAUSEA. REPORT GIVEN TO KAREEM NEVAREZ. ROQUE STATED UNDERSTANDING AND DENIED HAVING FURTHER QUESTIONS. PT RECEIVING MEDICAL TRANSPORT. AWAITING MEDICAL TRANSPORT TO ARRIVE. TELE DC. PT COMFORTABLE. PT DENIES HAVING FURTHER CONCERNS. IV INTACT.
[2019-09-22 17:31] VITALS: BP 143/84
--- NOTE | 2019-09-27 07:35 | HC ---
[facility] [address] CONSULTATION Name: MON[address] JR Room #: 210-P [facility] IN M.R.#: [id number] Admission: 09/16/19 Attend Phys: Maribel Garnica MD Discharge: 09/22/19 Date of : 83 Report #: [id number] THIS REPORT FOR: cc: JERAMIE - Family physician unknown JERAMIE - Family physician unknown Silver Fisher MD ~ CC: JERAMIE unknown Maribel Garnica DATE OF SERVICE: 09/17/2019 REASON FOR CONSULTATION: End-stage renal disease. HISTORY OF PRESENT ILLNESS: A 34-year-old who is maintained on hemodialysis every Friday, Friday and Friday. The patient is well known to me. He just signed out against medical advice from [facility]. He has history of chronic narcotic abuse. He presented with abnormal rhythm pattern and was admitted for further management. He reported some chest pain and dizziness on arrival. He was found to have an SVT and converted to sinus rhythm. He continues to have some issues with his chronic pain. He is due for dialysis and I was consulted to manage his end-stage renal disease. Unfortunately, this patient has extreme history of noncompliance. He has a tendency to sign against medical advice. He recently was hospitalized at [facility] and he just signed against medical advice. PAST MEDICAL HISTORY: 1. End-stage renal disease, maintained on hemodialysis with [facility]. 2. Hypertension. 3. Chronic narcotic abuse. PAST SURGICAL HISTORY: Right upper extremity AV fistula. ALLERGIES: HALDOL. MEDICATIONS: 1. Clonidine. 2. Detemir insulin. 3. Carvedilol. 4. Metoclopramide. 5. Amlodipine. REVIEW OF SYSTEMS: GENERAL: No fever or chills. CARDIOVASCULAR: Significant for chest pain. He also has palpitation. PULMONARY: No cough or hemoptysis. GASTROINTESTINAL: Chronic nausea, vomiting, abdominal pain issues. [facility] [address] [place] [address] CONSULTATION Name: MONET L[address] Room #: 210-[facility]#: [id number] Admission: 09/16/19 Attend Phys: Maribel Garnica MD Discharge: 09/22/19 Date of : 83 Report #: [id number] MUSCULOSKELETAL: Chronic myalgias and arthralgias. NEUROLOGICAL: No headache, no dizziness. FAMILY HISTORY: Significant for hypertension. SOCIAL HISTORY: He denies drug or alcohol abuse. PHYSICAL EXAMINATION: GENERAL: The patient is alert, oriented. VITAL SIGNS: Blood pressure is 141/79, temperature is 38.9. Blood pressure on arrival was 231/127. HEAD AND NECK: Significant jugular venous distention. CHEST: Decreased air entry bilaterally, with crackles. CARDIOVASCULAR: No rub. ABDOMEN: Soft. EXTREMITIES: Lower extremities +1 edema. Upper extremities, right AV fistula. Chest x-ray consistent with cardiomegaly. LABORATORY DATA: Laboratory values, white blood cell count 11.3. Sodium 135, potassium 4.1, BUN 42, creatinine 6.4. ASSESSMENT, IMPRESSION AND PLAN: 1. End-stage renal disease. 2. Supraventricular tachycardia. 3. Noncompliance. 4. Hypertensive urgency. 5. Chronic narcotic abuse. 6. Arrange for the patient to have his usual hemodialysis today. 7. Ruling out COVID-19 infection. 8. Cardiology following. 9. Extreme noncompliance contributing to his current issues. Extreme lack of insight of his medical issues. He just signed against medical advice from [facility]. 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 <ELECTRONICALLY SIGNED> By: Silver Fisher MD 09/27/19 0735 0856 0919 Silver Fisher MD /nt
== END 2019-09-22 17:30 | DRG 314 ==
LOC: ER 14:20 → ICU 17:45 → EROBS 17:45 → ICU 09-17 04:44 → 2N 09-17 23:00
PROVIDERS: Anesthesiology; Emergency Medicine; Internal Medicine; ADMIT Internal Medicine; ATTEND Internal Medicine
PROC: 5A1D70Z Performance of Urinary Filtration, Intermittent, Less than 6 Hours Per Day (ICD-10-PCS; principal; 2019-09-20)
DX: T82.7XXA Infection and inflammatory reaction due to other cardiac and vascular devices, implants and grafts, initial encounter (principal); A41.01 Sepsis due to Methicillin susceptible Staphylococcus aureus; N18.6 End stage renal disease; G93.41 Metabolic encephalopathy; I47.1 Supraventricular tachycardia; I13.11 Hypertensive heart and chronic kidney disease without heart failure, with stage 5 chronic kidney disease, or end stage renal disease; R18.8 Other ascites; E78.5 Hyperlipidemia, unspecified; I48.91 Unspecified atrial fibrillation; G89.4 Chronic pain syndrome; F11.90 Opioid use, unspecified, uncomplicated; F12.90 Cannabis use, unspecified, uncomplicated; K31.84 Gastroparesis; I16.0 Hypertensive urgency; R10.9 Unspecified abdominal pain; E10.22 Type 1 diabetes mellitus with diabetic chronic kidney disease; E10.43 Type 1 diabetes mellitus with diabetic autonomic (poly)neuropathy; R11.15 Cyclical vomiting syndrome unrelated to migraine; E83.59 Other disorders of calcium metabolism; K59.00 Constipation, unspecified; K74.60 Unspecified cirrhosis of liver; D64.9 Anemia, unspecified; Z20.828 Contact with and (suspected) exposure to other viral communicable diseases; Z88.8 Allergy status to other drugs, medicaments and biological substances; Z91.013 Allergy to seafood; Z82.49 Family history of ischemic heart disease and other diseases of the circulatory system; Z99.2 Dependence on renal dialysis; Z91.15 Patient's noncompliance with renal dialysis; Z83.3 Family history of diabetes mellitus; Z91.14 Patient's other noncompliance with medication regimen; Y83.8 Other surgical procedures as the cause of abnormal reaction of the patient, or of later complication, without mention of misadventure at the time of the procedure; Y92.89 Other specified places as the place of occurrence of the external cause; T40.2X5A Adverse effect of other opioids, initial encounter
CPT/HCPCS: 10081; 32100